=== PATIENT | male | born 1940 | race Caucasian/White ===

== ENCOUNTER 2018-03-23 03:10 | Inpatient (IN) | payer MEDICARE ==
[~2018-03-23] VITALS: Ht 180.3 cm; Wt 122.9 kg
--- NOTE | ~2018-03-23 | EC ---
PATIENT:KURT BRIGHT DATE OF SERVICE: 03/23/18 SEX: M MEDICAL RECORD: [id number] DATE OF : 40 LOCATION:D.MS [id number] AGE OF PATIENT: 78 ADMISSION DATE: 03/23/18 REFERRING PHYSICIAN: INTERPRETING PHYSICIAN: ANDRIA WELDON MD ECHOCARDIOGRAM REPORT ECHO CHARGES 4 ECHO COMPLETE Date: 03/24 CLINICAL DIAGNOSIS: CHF ECHOCARDIOGRAPHIC MEASUREMENTS (adult normal given) AC root (d.<3.7cm) 3.3 cm LV Septum d (<1.2 cm> 1.2 cm Valve Excursion 2.1 cm LV Septum (systole) 1.8 cm Left Atria (s.<4.0cm> 4.9 cm LVPW d(<1.2cm) 1.3 cm RV (d.<2.3cm) 3.1 cm LVPW (sytole) 2.2 cm LV diastole(<5.6CM) 7.3 cm MV E-F(>70mm/sec) cm LV systole 5.3 cm LVOT Diameter 2.0 cm MV exc.(>10mm) cm Est.ejection fraction (50-75%) % DOPPLER: LVIT cm/sec A 59.0 cm/sec E 160 cm/sec LA cm/sec RVSP 42.4 mmHg LVOT 82.0 cm/sec AOP1/2T m/s Asc. Ao 151 cm/sec RVOT 80.0 cm/sec RA cm/sec PA 112 cm/sec AV Gradient Peak 9.1 mmHg AV Mean 4.5 mmHg AV Area 1.7 cm MV Gradient Peak 9.9 mmHg MV Mean 2.6 mmHg MV Area cm COMMENTS: Subcontract Manager: 1 WARREN SOTOOE Personnel Clerk: 3 Dr. Townsend TAPE# PACS Pericardial Effusion N DATE OF SERVICE: Adequate 2D echo, color flow, spectral Doppler, and M-mode. Mild LVH. LV internal dimensions are mildly dilated. LV is globally hypokinetic with reduced EF, estimated EF 35%. The aortic valve is tricuspid. No evidence of stenosis by Doppler interrogation. Left atrium is dilated to 4.9 cm. Mitral valve is thickened. Xagt-iy-xkohoirq MR. Right-sided chambers normal. Mild TR. TRANSINT:[id number] Voice Confirmation ID: [id number] DOCUMENT ID: [id number] ECHOCARDIOGRAM REPORT [id number] KURT BRIGHT GREGORY A MD at 0816 CC: [id number] DICTATION DATE: 03/25/1858 RN DOCUMENT IMPROVEMENT: 03/25/18 1504 DIS IN 03/31/18 [place] [id number] [place] [id number]
--- NOTE | ~2018-03-23 | HP ---
PATIENT: KURT BRIGHT MEDICAL RECORD: [id number] ACCOUNT: [id number] LOCATION:D.MS Fox3 : 40 ADMISSION DATE: 03/23/18 HISTORY AND PHYSICAL EXAMINATION REASON FOR ADMISSION: Confusion. HISTORY OF PRESENT ILLNESS: The patient is a 78-year-old male with a history of chronic renal insufficiency, CAD, congestive heart failure. He has been followed most recently in the [facility] for left lower extremity cellulitis, which his said had been improving. She states that he has been getting weaker over the last month. The patient states he mainly sits in a recliner all day long. He apparently fell about 3 weeks ago. She is unsure if he hit his head. There was no reported loss of consciousness. He has been more feeble since that time and yesterday afternoon became much more confused for which she brought him to the Emergency Room. He denies headache, cough or fever. PAST MEDICAL HISTORY: Chronic venous insufficiency, morbid obesity, coronary artery disease, congestive heart failure. Recent echo showing a 45% ejection fraction per Dr. Miquel Hubbard, essential hypertension, type 2 diabetes mellitus, depression, hyperlipidemia, colon polyps, history of GI bleed, chronic renal insufficiency stage III with last creatinine in October of this year at 3 and a BUN of 52, obstructive sleep apnea, osteoarthritis, history of gouty arthritis, secondary hyperparathyroidism. PAST SURGICAL HISTORY: Appendectomy, tonsillectomy, pacemaker placement, coronary artery bypass grafting in 1998, right great toe amputated for infection. She has history of carotid endarterectomy on the right in 2012 and a carotid stent placed after that. SOCIAL HISTORY: He is . 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 He said he quit smoking over 50 years ago. ALLERGIES: AMIODARONE, PENICILLIN, ACTOS, HYDROCHLOROTHIAZIDE CAUSING GOUT, METOLAZONE, MORPHINE, PLAVIX, AND SULFA. FAMILY HISTORY: His father had melanoma. Mother had heart disease. Paternal grandmother had heart disease, diabetes, hypertension and stroke. CURRENT MEDICATIONS: Basaglar insulin 80 units at bedtime, guaifenesin 400 mg b.i.d., vitamin D 50,000 units p.o. weekly, metolazone 2.5 mg one-half tab daily, Bumex 2 mg tablets every other day, metoprolol succinate ER 100 mg tablets 1 by mouth daily, Uloric 40 mg a day, Lipitor 40 mg at bedtime, aspirin 81 mg a day, NovoLog sliding scale, lisinopril 5 mg a day, mag oxide 400 mg 2 tablets daily, and also levothyroxine 50 mcg p.o. daily. REVIEW OF SYSTEMS: GENERAL: He has been fatigued and had fair appetite. He denies fever. HEENT: No recent visual changes, sinus congestion, or sore throat. CARDIAC: Denies chest pain, has chronic peripheral edema. No recent palpitations. GENITOURINARY: Has nocturia. No dysuria. MUSCULOSKELETAL: Chronic lumbago without sciatica. INTEGUMENT: He has had chronic dry skin. He has slight redness in his left HISTORY AND PHYSICAL [id number] BRIGHT,KURT ROCANE lower leg for the last several months. ENDOCRINE: Denies polyuria, polydipsia, heat or cold intolerance. NEUROLOGIC: No history of stroke, TIA, or vascular headaches. INTEGUMENT: No rash currently. No pruritus. PSYCHIATRIC: Denies depressed mood. PHYSICAL EXAMINATION: VITAL SIGNS: Pulse is 54 and regular, respirations are 18, blood pressure 151/47 with an O2 sat of 94% on 2 liters. HEENT: Normocephalic. Eyes are clear. Pupils are pinpoint, reactive. NECK: Faint bruit in the right carotid. Left is unremarkable. HEART: Regular rate and rhythm, without MGR. LUNGS: Subacute breath sounds in the left mid to lower lobe. Right lung is clear. No crackles appreciated. He is not retracting or tachypneic. ABDOMEN: Morbidly obese, nontender. GENITOURINARY: Deferred. EXTREMITIES: He has 3+ pitting edema of both lower extremities. He has a right great toe amputation well healed. He has erythema on his left lower extremity foot to the mid calf that blanches and is warm to the touch. No obvious skin lesions are noted here. NEUROLOGICAL: Oriented to person, place, and time. Cranial nerves are grossly intact. No motor deficits appreciated, but gait was not tested. LABORATORY DATA: Shows a white count of 15,000 with left shift, H&H is 14.6 and 43.9, platelet count of 168,000. His chemistry shows a potassium of 2.8, CO2 of 33.3, BUN of 91, creatinine of 5.1, bilirubin is 1.44. Troponin is 0.098. Urinalysis is currently pending. INR is 1.21. Chest x-ray shows cardiomegaly and what appears to be a hazy density in the left lower lobe suggesting pneumonia. CT of the brain is currently pending. ASSESSMENT: 1. Community-acquired left lobar pneumonia. 2. Altered mental status. 3. Hypokalemia. 4. Wexuq-kx-awqvixp cellulitis of left lower extremity, peripheral vascular disease, diabetes mellitus, morbid obesity, history of coronary artery disease, carotid occlusive disease, chronic renal insufficiency stage IV, creatinine up from 3 now to 5, secondary hyperparathyroidism, left ventricular hypertrophy with ejection fraction of 45% based on echo from February of this year at [facility], mild pulmonic valve regurgitation, dilated right ventricle and right atrium, zvas-fu-nzpwkvrp mitral regurgitation, recent cellulitis of left foot and leg on hyperbaric treatment, history of congestive heart failure, history of gout, sick sinus syndrome with pacemaker, hypokalemia. PLAN: The patient will be admitted from the ER to the room when available, will cautiously hydrate, culture blood and urine, placed on IV antibiotics. Check CT of the head due to confusion and subacute fall. Renal consult has been obtained. TRANSINT:[id number] Voice Confirmation ID: [id number] DOCUMENT ID: [id number] HISTORY AND PHYSICAL [id number] KURT BRIGHT TIMOTHY MD at 0838 CC: [id number] DICTATION DATE: 03/23/18830 ELECTRONICS PROCESSING SUPERVISOR: 03/23/18 0936 ADM IN [facility] [address] [place] [address]
--- NOTE | ~2018-03-23 | CN ---
PATIENT NAME:KURT BRIGHT MEDICAL RECORD: [id number] : 40 LOCATION:D.MS Fox3 ADMIT DATE: 03/23/18 ACCOUNT: [id number] CONSULTING PHYSICIAN: ANDRIA WELDON MD REFERRING PHYSICIAN: ROHAN ANDRES MD DATE OF CONSULTATION: 03/24/2018 HISTORY OF PRESENT ILLNESS: A 78-year-old gentleman with a known cardiovascular history. He has a history of sick sinus syndrome, status post pacemaker placement, history of cardiomyopathy, mildly reduced EF, diabetes mellitus with a nonhealing left lower extremity cellulitis being seen at the wound clinic, who has been getting weaker over the past by his report 2-3 weeks, somewhat confused and postural instability, admitted with hypokalemia, volume overload, ixixq-il-stcbrgn renal insufficiency. We are asked to see him concerning his cardiovascular status. PAST MEDICAL HISTORY: 1. History of coronary artery disease. 2. Cardiomyopathy, EF 45%. 3. Hypertension. 4. Diabetes mellitus. 5. Hyperlipidemia. 6. Chronic renal insufficiency, baseline creatinine approximately 3. 7. Sick sinus syndrome, status post permanent pacemaker placement. 8. Cerebrovascular disease status post CVA. SOCIAL HISTORY: , retired truck driver helper, nonsmoker. ALLERGIES: INCLUDE PENICILLIN, ACTOS, HYDROCHLOROTHIAZIDE, METOLAZONE, MORPHINE, PLAVIX, SULFA. MEDICATIONS: Home medications include Lipitor 40 every day, metoprolol 100 every day, amiodarone 200 every day, lisinopril 10 every day, aspirin 81 every day, Bumex 2 mg p.o. every day, insulin per scale. REVIEW OF SYSTEMS: The patient reports easy bruising but reports no swollen glands. The patient reports no fever, no night sweats, no significant weight gain, no significant weight loss. No significant exercise tolerance. The patient reports no dry eyes, no irritation, no vision change. Patient reports no difficulty hearing and no ear pain. Patient reports no frequent nose bleeds or nose and sinus problems. Patient reports on arm pain on exertion. No shortness of breath while lying down. No history of heart murmur. Patient reports no cough, no wheezing or coughing up blood. Patient reports no abdominal pain, no vomiting. Normal appetite. No diarrhea and not vomiting blood. No nausea and no constipation. Patient reports no incontinence. No difficulty urinating. No hematuria. No increased frequency. Patient reports no muscle aches. No weakness, no arthralgias, no back pain. No swelling of the extremities. Patient reports no abnormal mole, no jaundice, no rashes. Reports no loss of consciousness. No weakness and no numbness. No seizures, dizziness, or headaches. The patient reports no depression, no sleep disturbance, feeling safe in a relationship and no alcohol abuse. Patient reports on fatigue. Reports no runny nose or sinus pressure. No itching, no hives, and no frequent sneezing. PHYSICAL EXAMINATION: CONSULT REPORT [id number] KURT BRIGHT GENERAL: Pleasant gentleman in no acute distress, apparently oriented today. VITAL SIGNS: Blood pressure 117/54, pulse 55 and regular. HEENT: Normocephalic, atraumatic. NECK: No bruits are noted. HEART: Regular, II/ systolic ejection murmur. LUNGS: Actually fairly good air excursion. ABDOMEN: Soft, nontender. EXTREMITIES: Pulses are decreased. Trace edema. IMPRESSION: Coronary artery disease, cardiomyopathy, chronic renal insufficiency. At this point in time, would add Aldactone to his cardiomyopathy medications that should help with potassium retention as well as inotropic support. Further recommendations based on clinical course. TRANSINT:[id number] Voice Confirmation ID: [id number] DOCUMENT ID: [id number] ANDRIA WELDON MD at 0816 CC: [id number] DICTATION DATE: 03/24/18 1058 SHEET METAL DUCT WORKER SUPERVISOR: 03/24/18 1209 DIS IN 03/31/18 [place] [id number] [place] [address]
[~2018-03-23 03:10] MED LIST: BAYER CHEWABLE81 MG PO; BUMEX2 MG PO; CORDARONE200 MG PO; LIPITOR40 MG PO; LISINOPRIL10 MG PO; MAG-OX 400 MG400 MG PO; METOLAZONE5 MG PO; NOVOLIN N100 U/ML SQ; SYNTHROID50 MCG PO; TOPROL XL100 MG PO; TOUJEO SOL300 UNIT/1 SC; ULORIC40 MG PO
[2018-03-23] MEDS ORDERED: BUMEX2 MG PO (03:22)
[2018-03-23] MEDS ORDERED: BASAGLAR K100 UNIT/1 (03:23)
[2018-03-23] MEDS ORDERED: ULORIC40 MG PO (03:23)
[2018-03-23 04:00] LABS: BASOPHILS 0.2 % (0-2); EOSINOPHILS 0.7 % (0-7); HEMATOCRIT 42.9 % (42.0-54.0); HEMOGLOBIN 14.6 g/dL (13.5-17.5); IMMATURE GRANULOCYTES 0.5 % (0-5); MCH 32.1 pg (26.0-34.0); MCV 94.3 fL (80.0-100.0); MEAN PLATELET VOLUME 12.6 fL (7.4-10.4); MONOCYTES 10.3 % (2-11); NEUTROPHILS 81.3 % (40-80); RBC 4.55 10x6/uL (4.20-6.10); RDW 14.7 % (11.5-14.5)
[2018-03-23 04:01] LABS: PLATELET COUNT 168 10x3/uL (130-400)
[2018-03-23 04:05] LABS: INR 1.21 (0.85-1.17); PROTIME 14.9 SECONDS (11.6-15.0)
[2018-03-23 04:07] LABS: D-DIMER-QUANTITATIVE 0.84 ug/mLFEU (0.20-0.54)
[2018-03-23 04:25] LABS: BILIRUBIN - TOTAL 1.44 mg/dL (0.2-1.3); CALCIUM 8.9 mg/dL (8.5-10.1); CARBON DIOXIDE 33.3 mmol/L (21.0-32.0); CREATININE - SERUM 5.1 mg/dL (0.6-1.3); PROTEIN - SERUM 7.6 g/dL (6.4-8.2)
[2018-03-23 04:28] LABS: ANION GAP 10.5 mmol/L (8-16); POTASSIUM - SERUM 2.8 mmol/L (3.5-5.1); TROPONIN-I 0.098 ng/mL (0.000-0.060)
[2018-03-23 04:30] VITALS: BP 151/47
[2018-03-23 05:30] VITALS: BP 136/95
[2018-03-23 06:30] VITALS: BP 102/52
[2018-03-23 08:43] VITALS: BP 134/48
[2018-03-23 12:32] VITALS: BP 141/42
[2018-03-23 19:54] VITALS: BP 131/51
[2018-03-23 22:45] LABS: APPEARANCE CLEAR (CLEAR); BILIRUBIN NEGATIVE (NEGATIVE); COLOR YELLOW (YELLOW); GLUCOSE NEGATIVE (NEGATIVE); KETONE NEGATIVE (NEGATIVE); NITRITE NEGATIVE (NEGATIVE); PROTEIN NEGATIVE (NEGATIVE); UROBILINOGEN NORMAL (NORMAL)
[2018-03-24 00:28] VITALS: BP 119/46
[2018-03-24 03:42] VITALS: BP 119/46; BMI 37.8
[2018-03-24 04:10] VITALS: BP 124/54
[2018-03-24 06:25] LABS: BASOPHILS 0.3 % (0-2); EOSINOPHILS 3.6 % (0-7); HEMATOCRIT 40.8 % (42.0-54.0); HEMOGLOBIN 13.6 g/dL (13.5-17.5); IMMATURE GRANULOCYTES 0.5 % (0-5); LYMPHOCYTES 11.7 % (15-50); MCH 31.9 pg (26.0-34.0); MCHC 33.3 g/dL (31.0-37.0); MCV 95.8 fL (80.0-100.0); MEAN PLATELET VOLUME 12.7 fL (7.4-10.4); MONOCYTES 11.7 % (2-11); NEUTROPHILS 72.2 % (40-80); PLATELET COUNT 154 10x3/uL (130-400); RBC 4.26 10x6/uL (4.20-6.10); RDW 14.9 % (11.5-14.5)
[2018-03-24 06:32] LABS: WBC 11.2 10x3/uL (4.8-10.8)
[2018-03-24 06:56] LABS: MAGNESIUM - SERUM 2.3 mg/dL (1.8-2.4); URIC ACID 14.6 mg/dL (2.6-7.2)
[2018-03-24 07:17] LABS: ALBUMIN 2.6 g/dL (3.4-5.0); ANION GAP 12.7 mmol/L (8-16); BILIRUBIN - TOTAL 1.19 mg/dL (0.2-1.3); CALCIUM 8.6 mg/dL (8.5-10.1); CARBON DIOXIDE 33.1 mmol/L (21.0-32.0); CREATININE - SERUM 4.4 mg/dL (0.6-1.3); MAGNESIUM - SERUM 2.4 mg/dL (1.8-2.4); PHOSPHOROUS 4.1 mg/dL (2.5-4.9); POTASSIUM - SERUM 2.8 mmol/L (3.5-5.1); PROTEIN - SERUM 6.7 g/dL (6.4-8.2); TROPONIN-I 0.21 ng/mL (0.000-0.060)
[2018-03-24 08:30] VITALS: BP 117/54
[2018-03-24 09:51] VITALS: Ht 180.3 cm; Wt 122.9 kg
[2018-03-24 12:13] LABS: ANION GAP 7.5 mmol/L (8-16); CALCIUM 8.7 mg/dL (8.5-10.1); CARBON DIOXIDE 35.6 mmol/L (21.0-32.0); CREATININE - SERUM 4.4 mg/dL (0.6-1.3); POTASSIUM - SERUM 3.1 mmol/L (3.5-5.1)
[2018-03-24 12:35] VITALS: BP 140/68
[2018-03-24 22:18] VITALS: BP 124/38
[2018-03-25 04:10] VITALS: BP 135/57
[2018-03-25 06:19] LABS: BASOPHILS 0.5 % (0-2); EOSINOPHILS 8.1 % (0-7); HEMATOCRIT 42.2 % (42.0-54.0); HEMOGLOBIN 13.8 g/dL (13.5-17.5); IMMATURE GRANULOCYTES 0.7 % (0-5); LYMPHOCYTES 11.7 % (15-50); MCH 31.4 pg (26.0-34.0); MCHC 32.7 g/dL (31.0-37.0); MCV 96.1 fL (80.0-100.0); MEAN PLATELET VOLUME 12.7 fL (7.4-10.4); MONOCYTES 12.5 % (2-11); NEUTROPHILS 66.5 % (40-80); PLATELET COUNT 160 10x3/uL (130-400); RBC 4.39 10x6/uL (4.20-6.10); RDW 14.9 % (11.5-14.5); WBC 10.8 10x3/uL (4.8-10.8)
[2018-03-25 06:37] LABS: ANION GAP 8.3 mmol/L (8-16); CALCIUM 8.3 mg/dL (8.5-10.1); CARBON DIOXIDE 33.1 mmol/L (21.0-32.0); CREATININE - SERUM 4.3 mg/dL (0.6-1.3); POTASSIUM - SERUM 3.4 mmol/L (3.5-5.1)
[2018-03-25 07:52] VITALS: BP 120/53
[2018-03-25 12:16] VITALS: BP 151/50
[2018-03-25 12:17] LABS: ANION GAP 7.7 mmol/L (8-16); CALCIUM 8.1 mg/dL (8.5-10.1); CARBON DIOXIDE 31.8 mmol/L (21.0-32.0); CREATININE - SERUM 4.1 mg/dL (0.6-1.3); POTASSIUM - SERUM 3.5 mmol/L (3.5-5.1)
[2018-03-25 15:39] VITALS: BP 126/47
[2018-03-25 21:48] VITALS: BP 150/48
[2018-03-26 00:56] VITALS: BP 154/54
[2018-03-26 07:13] LABS: ANION GAP 12.5 mmol/L (8-16); CALCIUM 8.7 mg/dL (8.5-10.1); CARBON DIOXIDE 29.9 mmol/L (21.0-32.0); CREATININE - SERUM 3.9 mg/dL (0.6-1.3); MAGNESIUM - SERUM 2.7 mg/dL (1.8-2.4); POTASSIUM - SERUM 3.4 mmol/L (3.5-5.1)
[2018-03-26 08:06] VITALS: BP 188/58
[2018-03-26 12:36] VITALS: BP 164/61
[2018-03-26 15:23] VITALS: BP 171/65
[2018-03-27] VITALS (7 sets, daily range): BP systolic 126–157; BP diastolic 40–62
[2018-03-27 06:25] LABS: ANION GAP 11.5 mmol/L (8-16); CALCIUM 8.9 mg/dL (8.5-10.1); CARBON DIOXIDE 28.5 mmol/L (21.0-32.0); CREATININE - SERUM 3.4 mg/dL (0.6-1.3); PHOSPHOROUS 3.7 mg/dL (2.5-4.9)
[2018-03-28 04:05] VITALS: BP 154/54
[2018-03-28 06:40] LABS: ANION GAP 12.2 mmol/L (8-16); CALCIUM 8.6 mg/dL (8.5-10.1); CARBON DIOXIDE 27.5 mmol/L (21.0-32.0); CREATININE - SERUM 3.1 mg/dL (0.6-1.3); PHOSPHOROUS 3.2 mg/dL (2.5-4.9); POTASSIUM - SERUM 3.7 mmol/L (3.5-5.1)
[2018-03-28 07:52] VITALS: BP 156/51
[2018-03-28 12:24] VITALS: BP 140/87
[2018-03-28 15:32] VITALS: BP 132/49
[2018-03-28 20:51] VITALS: BP 148/56
[2018-03-29 04:26] VITALS: BP 115/56
[2018-03-29 06:30] LABS: ANION GAP 8.9 mmol/L (8-16); CALCIUM 8.4 mg/dL (8.5-10.1); CARBON DIOXIDE 28.2 mmol/L (21.0-32.0); CREATININE - SERUM 3.3 mg/dL (0.6-1.3); POTASSIUM - SERUM 4.1 mmol/L (3.5-5.1)
[2018-03-29 11:09] VITALS: BP 150/54
[2018-03-29 14:31] LABS: APPEARANCE HAZY (CLEAR); BILIRUBIN NEGATIVE (NEGATIVE); COLOR YELLOW (YELLOW); GLUCOSE NEGATIVE (NEGATIVE); KETONE NEGATIVE (NEGATIVE); NITRITE NEGATIVE (NEGATIVE); PROTEIN NEGATIVE (NEGATIVE); UROBILINOGEN NORMAL (NORMAL)
[2018-03-29 20:26] VITALS: BP 137/39
[2018-03-30] VITALS (7 sets, daily range): BP systolic 114–136; BP diastolic 53–60
[2018-03-30 12:25] LABS: ANION GAP 11.8 mmol/L (8-16); CALCIUM 8.8 mg/dL (8.5-10.1); CARBON DIOXIDE 27.1 mmol/L (21.0-32.0); CREATININE - SERUM 3.6 mg/dL (0.6-1.3); POTASSIUM - SERUM 3.9 mmol/L (3.5-5.1)
[2018-03-31 03:43] VITALS: BP 137/56
[2018-03-31 06:23] LABS: ANION GAP 11.1 mmol/L (8-16); CALCIUM 8.6 mg/dL (8.5-10.1); CARBON DIOXIDE 28.8 mmol/L (21.0-32.0); CREATININE - SERUM 3.8 mg/dL (0.6-1.3); POTASSIUM - SERUM 3.9 mmol/L (3.5-5.1)
[2018-03-31 08:13] VITALS: BP 143/56
[2018-03-31] MEDS ORDERED: ALDACTONE25 MG PO (10:30)
[2018-03-31 12:33] VITALS: BP 114/45
== END 2018-03-31 15:43 | disposition home health service (06) | DRG 291 ==
LOC: D.ER 03:10 → D.MS 06:32 → D.EDHOLD 06:32 → D.MS 19:59
PROVIDERS: Family Medicine; Internal Medicine Nephrology
DX: I13.0 Hypertensive heart and chronic kidney disease with heart failure and stage 1 through stage 4 chronic kidney disease, or unspecified chronic kidney disease (principal); I50.23 Acute on chronic systolic (congestive) heart failure; J18.9 Pneumonia, unspecified organism; N17.9 Acute kidney failure, unspecified; J44.0 Chronic obstructive pulmonary disease with (acute) lower respiratory infection; J44.1 Chronic obstructive pulmonary disease with (acute) exacerbation; L03.116 Cellulitis of left lower limb; N18.4 Chronic kidney disease, stage 4 (severe); I42.9 Cardiomyopathy, unspecified; E11.22 Type 2 diabetes mellitus with diabetic chronic kidney disease; Z79.4 Long term (current) use of insulin; E66.01 Morbid (severe) obesity due to excess calories; Z68.37 Body mass index [BMI] 37.0-37.9, adult; G47.33 Obstructive sleep apnea (adult) (pediatric); E87.6 Hypokalemia; E78.5 Hyperlipidemia, unspecified; I73.9 Peripheral vascular disease, unspecified; E21.3 Hyperparathyroidism, unspecified; I08.1 Rheumatic disorders of both mitral and tricuspid valves; E11.42 Type 2 diabetes mellitus with diabetic polyneuropathy; I48.91 Unspecified atrial fibrillation; M19.90 Unspecified osteoarthritis, unspecified site; M10.9 Gout, unspecified

== ENCOUNTER 2018-04-05 11:35 | Emergency (ER) | payer MEDICARE ==
[~2018-04-05] VITALS: Ht 180.3 cm; Wt 126.4 kg
[~2018-04-05 11:35] MED LIST changes: +ALDACTONE25 MG PO; +BASAGLAR K100 UNIT/1
[2018-04-05 11:52] VITALS: Ht 180.3 cm; Wt 126.4 kg
[2018-04-05 13:20] VITALS: BP 119/67
== END 2018-04-05 13:21 | disposition home or self-care (01) ==
LOC: D.ER 11:35
DX: R04.0 Epistaxis (principal); E11.9 Type 2 diabetes mellitus without complications; Z95.0 Presence of cardiac pacemaker

== ENCOUNTER 2018-07-09 17:07 | Emergency (ER) | payer MEDICARE ==
[~2018-07-09] VITALS: Ht 180.3 cm; Wt 103.4 kg
[2018-07-09 17:11] VITALS: Ht 180.3 cm; Wt 103.4 kg
[2018-07-09] MEDS ORDERED: ANUSOL-HC25 MG RC (19:34)
[2018-07-09 20:00] VITALS: BP 117/66
== END 2018-07-09 20:01 | disposition home or self-care (01) ==
LOC: D.ER 17:07
DX: K64.9 Unspecified hemorrhoids (principal); E11.9 Type 2 diabetes mellitus without complications; N18.9 Chronic kidney disease, unspecified

== ENCOUNTER 2018-08-01 06:11 | Day surgery (SDC) | payer MEDICARE ==
[~2018-08-01] VITALS: Ht 180.3 cm; Wt 133.6 kg
--- NOTE | ~2018-08-01 | OP ---
PATIENT NAME: KURT BRIGHT MEDICAL RECORD: [id number] :40 LOCATION:TIAGO ADMISSION DATE: SURGEON: YONI RAM DO DATE OF OPERATION: 08/01/2018 PROCEDURE: EGD with hemostasis and biopsies. INDICATIONS FOR PROCEDURE: Dysphagia, left upper quadrant abdominal tenderness, occult blood in the stools, and melena. SCOPE: Olympus video gastroscope. MEDICATIONS: Propofol 350 mg IV per anesthesia. ESTIMATED BLOOD LOSS: Minimal. COMPLICATIONS: None. FINDINGS: Informed consent was given. The patient was made comfortable with the above medication. After reaching an adequate level of sedation by slow IV push, the patient was placed on his left side. The endoscope was advanced under direct visualization through the mouth to the second portion of the duodenum. The upper, middle, and lower thirds of the esophagus appeared normal. At the GE junction, there was some evidence of LA class A reflux-induced esophagitis. The endoscope was advanced beyond the GE junction into the stomach, where gastric food retention was noted. There was food located in the cardia and fundus of the stomach making evaluation of the actual cardiac mucosa and looking for hiatal hernia impossible. The food was too solid to remove through the endoscope. There was also food in the antrum and prepylorus, which made locating the pylorus and getting into the duodenum difficult. As much food as possible was removed from the stomach for visualization. The entire stomach seemed to have some atrophic-appearing mucosa. A single cold forceps biopsy was taken to submit for histopathology and to rule out the presence of H. pylori. In the antrum and prepyloric region, there was an ulcerated nodule visualized. There was some oozing of blood around the exudative ulcerated surface. A couple cold forceps biopsies were taken of the nodule to submit for pathology. For hemostasis, 2 separate injections of diluted 1:10,000 epinephrine was injected for 2 mL total in the base of the ulcerated nodule. Gold probe cauterization was performed over the surface and a single endoclip was placed over the nodule with successful hemostasis. The endoscope was advanced beyond the pylorus into the duodenum. The entire exam and duodenum to the second portion appeared normal. The endoscope was then withdrawn from the patient. The patient tolerated the procedure well and there were no complications. IMPRESSION: 1. LA class A reflux-induced esophagitis. 2. Moderate amount of food retention within the stomach. 3. Atrophic-appearing gastritis with biopsies pending. 4. A single ulcerated nodule, which measured approximately 1 cm in size located in the prepyloric region. This nodule was oozing blood. Biopsies were taken and hemostasis performed using epinephrine injection, gold probe cautery, and endoclipping. PLAN AND RECOMMENDATIONS: 1. Discharge home when recovery parameters are met. OPERATIVE REPORT [id number] KURT BRIGHT 2. Follow up biopsy specimen results. 3. GERD diet, reflux precautions, and gastroparesis diet consisting of multiple, small, frequent meals that are low in fat and fibrous substances. 4. Notify the GI clinic if any further bleeding occurs. 5. A prescription for pantoprazole 40 mg capsules to be taken once daily for 60 days will be provided. TRANSINT:[id number] Voice Confirmation ID: [id number] DOCUMENT ID: [id number] YONI RAM DO at 1422 CC: [id number] DICTATION DATE: 08/01/18 09 STRADDLE CARRIER OPERATOR: 08/01/18 1108 [facility] 08/01/18 [place] [id number] [place] [address]
[~2018-08-01 06:11] MED LIST changes: +ANUSOL-HC25 MG RC
[2018-08-01 07:00] LABS: BASOPHILS 0.6 % (0-2); EOSINOPHILS 4.6 % (0-7); HEMATOCRIT 34.3 % (42.0-54.0); HEMOGLOBIN 10.7 g/dL (13.5-17.5); IMMATURE GRANULOCYTES 0.6 % (0-5); LYMPHOCYTES 17.6 % (15-50); MCH 30.8 pg (26.0-34.0); MCHC 31.2 g/dL (31.0-37.0); MCV 98.8 fL (80.0-100.0); MEAN PLATELET VOLUME 11.4 fL (7.4-10.4); MONOCYTES 10.5 % (2-11); NEUTROPHILS 66.1 % (40-80); PLATELET COUNT 190 10x3/uL (130-400); RBC 3.47 10x6/uL (4.20-6.10); RDW 14.4 % (11.5-14.5); WBC 8.9 10x3/uL (4.8-10.8)
[2018-08-01 07:03] LABS: ANION GAP 13.4 mmol/L (8-16); CALCIUM 8.4 mg/dL (8.5-10.1); CARBON DIOXIDE 26.4 mmol/L (21.0-32.0); CREATININE - SERUM 3.5 mg/dL (0.6-1.3); POTASSIUM - SERUM 3.8 mmol/L (3.5-5.1)
[2018-08-01] MEDS ORDERED: NEO-POLY-DEXAM3.5 GM EACH EYE (07:09)
[2018-08-01] MEDS ORDERED: LEVOTHYROXINE50 MCG PO (07:09)
[2018-08-01 07:16] VITALS: BP 153/68; Ht 180.3 cm; Wt 133.6 kg
== END 2018-08-01 09:45 | disposition home or self-care (01) ==
LOC: D.OPS 06:11
PROVIDERS: Anesthesiology
DX: K21.0 Gastro-esophageal reflux disease with esophagitis (principal); K29.70 Gastritis, unspecified, without bleeding; K25.9 Gastric ulcer, unspecified as acute or chronic, without hemorrhage or perforation; Z01.812 Encounter for preprocedural laboratory examination

== ENCOUNTER 2018-08-06 07:14 | Day surgery (SDC) | payer MEDICARE ==
[~2018-08-06] VITALS: Ht 180.3 cm; Wt 137.3 kg
--- NOTE | ~2018-08-06 | OP ---
PATIENT NAME: KURT BRIGHT MEDICAL RECORD: [id number] :40 LOCATION:D.OPS ADMISSION DATE: SURGEON: YONI RAM DO DATE OF OPERATION: 08/06/2018 PROCEDURE: Colonoscopy with biopsies, polypectomy, injection, and endoclipping. INDICATIONS FOR PROCEDURE: Occult blood in stools as well as left upper quadrant abdominal tenderness. SCOPE: Olympus video pediatric colonoscope. MEDICATIONS: Propofol 340 mg IV per anesthesia. WITHDRAWAL TIME: 37 minutes. ESTIMATED BLOOD LOSS: Minimal. COMPLICATIONS: None. FINDINGS: Informed consent was given. The patient was made comfortable with the above medication. After reaching an adequate level of sedation by slow IV push, the patient was placed on his left side. A digital rectal examination was performed and revealed hemorrhoids. The endoscope was advanced under direct visualization through the rectum to the cecum, confirmed by the presence of the appendiceal orifice and the ileocecal valve. The endoscope was slowly withdrawn and mucosa was carefully examined. Prep quality was fair in the majority of the colon, but poor in other locations, making complete visualization of the mucosa impossible. Approximately 95% or more of the mucosa was visualized well. There were multiple polyps visualized on today's examination. Two were located in the cecum. These were benign appearing, sessile, and measured in range from 3-5 mm in diameter. They were both removed using hot forceps. In the ascending colon, there was a larger mixed polyp which was sessile in one region and flat in another. The appearances were questionable as there was a broad area that appeared to be invading the wall along a fold distal to the ileocecal valve. Multiple cold forceps biopsies were taken to submit for histopathology. Tattoo was placed both proximally and distally to this polyp for further interventions, which may include endoscopic removal or surgical removal based on pathology. The endoscope was withdrawn further and 2 polyps were located in the transverse colon. They were both benign appearing and sessile. They ranged in size from 3-5 mm in diameter. One was removed using a hot snare and the other was removed using a hot forceps. The polyp that was removed using a hot forceps was bleeding after removal of the polyp. Multiple attempts were made at cautery to stop the bleeding. Due to continued bleeding, 2 endoclips were used to stop the bleeding successfully. In the sigmoid colon, there was another larger sessile polyp which measured approximately 1 cm in diameter. It was removed using a hot snare in one piece and completely retrieved. Also, in the distal descending colon and sigmoid colon, there was moderate diverticulosis of mixed large- and small-mouth diverticula. There was no evidence of diverticulitis. Retroflexion was performed in the rectum with visualization of grade III internal hemorrhoids. There was no active bleeding, but the mucosa was very friable and is the likely source of the patient's intermittent blood in his stool. The endoscope was withdrawn from the patient. The patient tolerated the procedure well and there were no complications. OPERATIVE REPORT [id number] KURT BRIGHT IMPRESSION: 1. Multiple polyps as described above, removed using combination of hot forceps and hot snare. One polyp in particular located in the ascending colon was not removed. This was a larger polyp measuring approximately 1.5 cm in size but had a mixed appearance of sessile and flat features with some concern that there could be some high-grade dysplasia within the polyp itself. Biopsies were taken to submit for histology and tattoo was placed around the site. 3. Moderate diverticulosis of distal descending and sigmoid colon. 4. Grade III hemorrhoids, which are not actively bleeding. PLAN AND RECOMMENDATIONS: 1. Discharge home when recovery parameters are met. 2. Followup biopsy specimen results. 3. High-fiber diet. 4. Continue current medications. 5. A referral will be made to Dr. Palencia for further intervention of the ascending colon polyp, which may include surgical resection versus endoscopic resection with biopsies pending. I will also let Dr. Palencia evaluate the patient's hemorrhoids for consideration of hemorrhoidectomy due to continued intermittent bleeding. 6. Consider CT scan of abdomen and pelvis regarding the patient's left-sided abdominal pain. This could be related to diverticula. We will work on a bowel regimen, and if this does not improve symptoms, a CT scan will be ordered. TRANSINT:[id number] Voice Confirmation ID: [id number] DOCUMENT ID: [id number] YONI RAM DO at 1426 CC: [id number] DICTATION DATE: 08/06/18 1018 LAUNDRY WORKER: 08/06/18 1047 [facility] 08/06/18 [place] [id number] [place] [address]
--- NOTE | ~2018-08-06 | OP ---
PATIENT NAME: KURT BRIGHT MEDICAL RECORD: [id number] :40 LOCATION:D.OPS ADMISSION DATE: SURGEON: YONI RAM DO DATE OF OPERATION: 08/06/2018 PROCEDURE: Colonoscopy with biopsies, polypectomy, injection, and endoclipping. INDICATIONS FOR PROCEDURE: Occult blood and stools as well as left upper quadrant abdominal tenderness. SCOPE: Olympus video pediatric colonoscope. MEDICATIONS: Propofol 340 mg IV per anesthesia. WITHDRAWAL TIME: 37 minutes. ESTIMATED BLOOD LOSS: Minimal. COMPLICATIONS: None. FINDINGS AND DESCRIPTION OF PROCEDURE: Informed consent was given. The patient was made comfortable with the above medication. After reaching an adequate level of sedation by slow IV push, the patient was placed on his left side. A digital rectal examination was performed and revealed hemorrhoids. The endoscope was advanced under direct visualization through the rectum to the cecum, confirmed by the presence of the appendiceal orifice and ileocecal valve. The endoscope was slowly withdrawn and mucosa was carefully examined. Prep quality was fair in the majority of the colon, but poor in other locations making complete visualization of the mucosa impossible. Approximately, 95% or more of the mucosa was visualized as well. There were multiple polyps visualized on today's examination. Two were located in the cecum. These were benign-appearing and sessile, and measured in range from 3-5 mm in diameter. They were both removed using hot forceps. In the ascending colon, there was a larger mixed polyp, which was sessile in one region and flat in another. The appearances were questionable as there was a broad area that appeared to be invading the wall along a fold distal to the ileocecal valve. Multiple cold forceps biopsies were taken to submit for histopathology. Tattoo was placed both proximally and distally to this polyp for further interventions, which may include endoscopic removal or surgical removal based on pathology. The endoscope was withdrawn further and 2 polyps were located in the transverse colon. They were both benign-appearing and sessile. They ranged in size from 3-5 mm in diameter. One was removed using a hot snare and the other was removed using a hot forcep. The polyp that was removed using a hot forcep was bleeding after removal of the polyp. Multiple attempts were made at cautery to stop the bleeding. Due to continued bleeding, two endoclips were used to stop the bleeding successfully. In the sigmoid colon, there was another larger sessile polyp, which measured approximately 1 cm in diameter. It was removed using a hot snare in 1 piece and completely retrieved. Also, in the distal descending colon and sigmoid colon, there was moderate diverticulosis of mixed large and small mouth diverticula. There was no evidence of diverticulitis. Retroflexion was performed in the rectum with visualization of grade III internal hemorrhoids. There was no active bleeding, but the mucosa was very friable and is the likely source of the patient's intermittent blood in his stool. The endoscope was withdrawn from the patient. The patient tolerated the procedure well and there were no complications. OPERATIVE REPORT [id number] KURT BRIGHT IMPRESSION: 1. Multiple polyps as described above, removed using combination of hot forceps and hot snare. One polyp in particular located in the ascending colon was not removed. This was a larger polyp measuring approximately 1.5 cm in size but had a mixed appearance of sessile and flat features with some concern that there could be some high-grade dysplasia within the polyp itself. Biopsies were taken to submit for histology and tattoo was placed around the site. 2. Moderate diverticulosis of the distal descending and sigmoid colon. 3. Grade III hemorrhoids, which are not actively bleeding. 4. 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 No biopsies were taken of this lipoma. PLAN AND RECOMMENDATIONS: 1. Discharge home when recovery parameters are met. 2. Follow up biopsy specimen results. 3. High-fiber diet. 4. Continue current medications. 5. A referral will be made to Dr. Palencia for further intervention of the ascending colon polyp, which may include surgical resection versus endoscopic resection with biopsies pending. I will also let Dr. Palencia evaluate the patient's hemorrhoids for consideration of a hemorrhoidectomy due to continued intermittent bleeding. 6. Consider CT scan of the abdomen and pelvis regarding the patient's left-sided abdominal pain. This could be related to diverticula. We will work on a bowel regimen and if this does not improve symptoms, a CT scan will be ordered. TRANSINT:[id number] Voice Confirmation ID: [id number] DOCUMENT ID: [id number] YONI RAM DO at 1426 CC: [id number] DICTATION DATE: 08/06/18 1025 LOW VOLTAGE ELECTRICIAN: 08/06/[address] [facility] 08/06/18 [id number] [place] [address]
[~2018-08-06 07:14] MED LIST changes: +LEVOTHYROXINE50 MCG PO; +NEO-POLY-DEXAM3.5 GM EACH EYE
[2018-08-06 07:31] LABS: BASOPHILS 0.3 % (0-2); EOSINOPHILS 2.3 % (0-7); HEMATOCRIT 34.1 % (42.0-54.0); HEMOGLOBIN 10.8 g/dL (13.5-17.5); IMMATURE GRANULOCYTES 0.3 % (0-5); LYMPHOCYTES 17.8 % (15-50); MCH 30.7 pg (26.0-34.0); MCHC 31.7 g/dL (31.0-37.0); MCV 96.9 fL (80.0-100.0); MEAN PLATELET VOLUME 11.3 fL (7.4-10.4); MONOCYTES 12.1 % (2-11); NEUTROPHILS 67.2 % (40-80); PLATELET COUNT 191 10x3/uL (130-400); RBC 3.52 10x6/uL (4.20-6.10); RDW 14.3 % (11.5-14.5); WBC 8.7 10x3/uL (4.8-10.8)
[2018-08-06 07:39] LABS: ANION GAP 14.1 mmol/L (8-16); CALCIUM 8.3 mg/dL (8.5-10.1); CARBON DIOXIDE 26.3 mmol/L (21.0-32.0); POTASSIUM - SERUM 3.4 mmol/L (3.5-5.1)
[2018-08-06] MEDS ORDERED: PROTONIX40 MG PO (08:12)
[2018-08-06 08:22] VITALS: BP 151/71; Ht 180.3 cm; Wt 137.3 kg
== END 2018-08-06 11:12 | disposition home or self-care (01) ==
LOC: D.OPS 07:14
PROVIDERS: Anesthesiology
DX: K63.5 Polyp of colon (principal); E11.9 Type 2 diabetes mellitus without complications; Z87.891 Personal history of nicotine dependence; Z95.0 Presence of cardiac pacemaker; K57.31 Diverticulosis of large intestine without perforation or abscess with bleeding

== ENCOUNTER 2018-08-11 13:49 | Emergency (ER) | payer MEDICARE ==
[~2018-08-11] VITALS: Ht 180.3 cm; Wt 140.5 kg
[~2018-08-11 13:49] MED LIST changes: +PROTONIX40 MG PO
[2018-08-11 14:01] VITALS: Ht 180.3 cm; Wt 140.5 kg
[2018-08-11 14:34] LABS: BASOPHILS 0.5 % (0-2); EOSINOPHILS 4.5 % (0-7); HEMATOCRIT 33.7 % (42.0-54.0); HEMOGLOBIN 10.5 g/dL (13.5-17.5); IMMATURE GRANULOCYTES 0.6 % (0-5); MCH 30.3 pg (26.0-34.0); MCHC 31.2 g/dL (31.0-37.0); MCV 97.1 fL (80.0-100.0); MEAN PLATELET VOLUME 12.2 fL (7.4-10.4); MONOCYTES 12.2 % (2-11); NEUTROPHILS 66.2 % (40-80); PLATELET COUNT 170 10x3/uL (130-400); RBC 3.47 10x6/uL (4.20-6.10); RDW 14.5 % (11.5-14.5); WBC 9.3 10x3/uL (4.8-10.8)
[2018-08-11 15:07] LABS: ALBUMIN 2.7 g/dL (3.4-5.0); ANION GAP 13.5 mmol/L (8-16); BILIRUBIN - TOTAL 0.87 mg/dL (0.2-1.3); CALCIUM 8.1 mg/dL (8.5-10.1); CARBON DIOXIDE 26.7 mmol/L (21.0-32.0); CREATININE - SERUM 3.1 mg/dL (0.6-1.3); POTASSIUM - SERUM 3.2 mmol/L (3.5-5.1); PROTEIN - SERUM 6.9 g/dL (6.4-8.2)
[2018-08-11] MEDS ORDERED: K-DUR20 MEQ PO (15:40)
[2018-08-11] MEDS ORDERED: METOLAZONE5 MG PO (15:56)
[2018-08-11 17:42] VITALS: BP 135/61
== END 2018-08-11 16:40 | disposition home or self-care (01) ==
LOC: D.ER 13:49
PROVIDERS: Emergency Medicine
DX: R60.0 Localized edema (principal); D64.9 Anemia, unspecified; E87.6 Hypokalemia; N28.9 Disorder of kidney and ureter, unspecified

== ENCOUNTER 2018-08-14 10:05 | Inpatient (IN) | payer MEDICARE ==
[~2018-08-14] VITALS: Ht 180.3 cm; Wt 137.9 kg
[~2018-08-14 10:05] MED LIST changes: +K-DUR20 MEQ PO
[2018-08-14] MEDS ORDERED: TOPROL XL100 MG PO (12:15)
[2018-08-14 12:49] VITALS: BP 159/49
[2018-08-14 13:39] LABS: BASOPHILS 0.4 % (0-2); EOSINOPHILS 3.1 % (0-7); HEMATOCRIT 36.2 % (42.0-54.0); HEMOGLOBIN 11.3 g/dL (13.5-17.5); IMMATURE GRANULOCYTES 0.5 % (0-5); LYMPHOCYTES 16.4 % (15-50); MCH 30.2 pg (26.0-34.0); MCHC 31.2 g/dL (31.0-37.0); MCV 96.8 fL (80.0-100.0); MEAN PLATELET VOLUME 12.4 fL (7.4-10.4); MONOCYTES 16.2 % (2-11); NEUTROPHILS 63.4 % (40-80); RBC 3.74 10x6/uL (4.20-6.10); RDW 14.6 % (11.5-14.5); WBC 10.5 10x3/uL (4.8-10.8)
[2018-08-14 13:51] LABS: CALCIUM 8.8 mg/dL (8.5-10.1); CARBON DIOXIDE 29.4 mmol/L (21.0-32.0); CREATININE - SERUM 3.4 mg/dL (0.6-1.3); POTASSIUM - SERUM 3.4 mmol/L (3.5-5.1)
[2018-08-14 13:52] LABS: PLATELET COUNT 205 10x3/uL (130-400)
[2018-08-14 14:27] VITALS: BP 154/49; BMI 42.5
[2018-08-14 16:44] VITALS: BP 139/51
[2018-08-14 20:00] VITALS: BP 157/30
[2018-08-15] VITALS: BP 121/62
[2018-08-15 04:00] VITALS: BP 131/55
[2018-08-15 07:43] LABS: BASOPHILS 0.6 % (0-2); EOSINOPHILS 2.1 % (0-7); HEMATOCRIT 32.6 % (42.0-54.0); HEMOGLOBIN 10.2 g/dL (13.5-17.5); IMMATURE GRANULOCYTES 0.3 % (0-5); LYMPHOCYTES 15.3 % (15-50); MCHC 31.3 g/dL (31.0-37.0); MCV 95.9 fL (80.0-100.0); MEAN PLATELET VOLUME 12.6 fL (7.4-10.4); MONOCYTES 14.6 % (2-11); NEUTROPHILS 67.1 % (40-80); PLATELET COUNT 180 10x3/uL (130-400); RDW 14.3 % (11.5-14.5); WBC 10.4 10x3/uL (4.8-10.8)
[2018-08-15 08:03] LABS: ALBUMIN 2.7 g/dL (3.4-5.0); ANION GAP 10.5 mmol/L (8-16); BILIRUBIN - TOTAL 1.6 mg/dL (0.2-1.3); CALCIUM 8.5 mg/dL (8.5-10.1); CREATININE - SERUM 3.4 mg/dL (0.6-1.3); POTASSIUM - SERUM 3.5 mmol/L (3.5-5.1); PROTEIN - SERUM 6.5 g/dL (6.4-8.2)
[2018-08-15 08:04] VITALS: BP 146/63
[2018-08-15 10:02] VITALS: Ht 180.3 cm; Wt 137.9 kg
[2018-08-15 11:32] VITALS: BP 152/88
[2018-08-15 17:37] VITALS: BP 151/63
[2018-08-15 19:00] VITALS: BP 133/68
--- NOTE | 2018-08-15 21:34 | MORECARE ---
CASE MANAGEMENT DISCHARGE SUMMARY PATIENT: KURT BRIGHT UNIT: [id number] ADM DATE: 08/14/18 AGE: 78 : 40 SEX: M ROOM/BED: D.1210 AUTHOR: ROLO PRESTON PHYSICIAN: REFERRING PHYSICIAN: ROHAN ANDRES MD DATE OF SERVICE: 08/15/18 Discharge Plan Patient Name: KURT BRIGHT Facility: [facility]:[place] : 1940 Planned Disposition: Home Anticipated Discharge Date: Discharge Date: Expected LOS: Initial Reviewer: [email or web address] Initial Review Date: 08/14/2018 Generated: 08/15/18 10:34 pm Patient Name: KURT BRIGHT Page [phone] at 2134 All edits/amendments must be made on the electronic document DICTATION DATE: 08/15/182133 MOLD CAPPER HELPER: NEEL 08/15/182133 RPT#: [id number] DC DATE: STATUS: ADM IN [facility] [address] [place] [address] END OF REPORT
--- NOTE | 2018-08-15 21:47 | MORECARE ---
CASE MANAGEMENT DISCHARGE SUMMARY PATIENT: KURT BRIGHT UNIT: [id number] ADM DATE: 08/14/18 AGE: 78 : 40 SEX: M ROOM/BED: D.1210 AUTHOR: ROLO PRESTON PHYSICIAN: REFERRING PHYSICIAN: ROHAN ANDRES MD DATE OF SERVICE: 08/15/18 Discharge Plan Patient Name: KURT BRIGHT Facility: [facility]:[place] : 1940 Planned Disposition: Home Anticipated Discharge Date: Discharge Date: Expected LOS: Initial Reviewer: [email or web address] Initial Review Date: 08/14/2018 Generated: 08/15/18 10:47 pm Comments DCP- Discharge Planning Updated by [email or web address]: Zeinab Brown on 08/15/18 8:[address] Patient Name: KURT BRIGHT Admission Status: Urgent Accout number: [id number] Admission Date: 08-14-2018 : 1940 Admission Diagnosis: Attending: ROHAN ANDRES Current LOS: 1 Anticipated DC Date: Planned Disposition: Home Primary Insurance: MEDICARE A & B Discharge Planning Comments: CM met with patient and spouse at bedside after obtaining verbal consent. Patient states he plans on returning home after discharge with his . Patient states he will have family transport him home via private vehicle. Patient has [facility] services. Patient is requesting a hospital bed and a big BSC. CM will continue to follow and assist as needed for discharge planning / needs. Tip Banding Machine Operator: Zeinab Brown Last DP export: 08/15/18 8:34 Patient Name: KURT BRIGHT Page [phone] at 2147 All edits/amendments must be made on the electronic document DICTATION DATE: 08/15/182146 SUPERVISOR BURLING AND JOINING: NEEL 08/15/182146 RPT#: [id number] DC DATE: STATUS: ADM IN [facility] [address] [place] [address] END OF REPORT
[2018-08-16 05:06] VITALS: BP 117/49
[2018-08-16 06:59] LABS: BASOPHILS 0.3 % (0-2); EOSINOPHILS 3.6 % (0-7); HEMATOCRIT 32.8 % (42.0-54.0); HEMOGLOBIN 10.1 g/dL (13.5-17.5); IMMATURE GRANULOCYTES 0.6 % (0-5); LYMPHOCYTES 18.6 % (15-50); MCH 29.7 pg (26.0-34.0); MCHC 30.8 g/dL (31.0-37.0); MCV 96.5 fL (80.0-100.0); MEAN PLATELET VOLUME 12.4 fL (7.4-10.4); NEUTROPHILS 61.9 % (40-80); PLATELET COUNT 181 10x3/uL (130-400); RDW 14.6 % (11.5-14.5); WBC 10.1 10x3/uL (4.8-10.8)
[2018-08-16 07:15] LABS: ALBUMIN 2.5 g/dL (3.4-5.0); ANION GAP 9.7 mmol/L (8-16); BILIRUBIN - TOTAL 1.23 mg/dL (0.2-1.3); CALCIUM 8.3 mg/dL (8.5-10.1); CARBON DIOXIDE 32.9 mmol/L (21.0-32.0); CREATININE - SERUM 3.9 mg/dL (0.6-1.3); POTASSIUM - SERUM 3.6 mmol/L (3.5-5.1); PROTEIN - SERUM 6.2 g/dL (6.4-8.2)
[2018-08-16 07:34] VITALS: BP 120/60
[2018-08-16 11:18] VITALS: BP 122/56
[2018-08-16 15:57] VITALS: BP 122/47
[2018-08-16 20:00] VITALS: BP 135/55
[2018-08-17] VITALS: BP 121/60
[2018-08-17 04:00] VITALS: BP 112/43
[2018-08-17 06:42] LABS: BASOPHILS 0.3 % (0-2); EOSINOPHILS 1.8 % (0-7); HEMATOCRIT 34.1 % (42.0-54.0); HEMOGLOBIN 10.4 g/dL (13.5-17.5); IMMATURE GRANULOCYTES 0.4 % (0-5); LYMPHOCYTES 9.6 % (15-50); MCH 29.4 pg (26.0-34.0); MCHC 30.5 g/dL (31.0-37.0); MCV 96.3 fL (80.0-100.0); MEAN PLATELET VOLUME 12.4 fL (7.4-10.4); MONOCYTES 12.4 % (2-11); NEUTROPHILS 75.5 % (40-80); PLATELET COUNT 194 10x3/uL (130-400); RBC 3.54 10x6/uL (4.20-6.10); RDW 14.6 % (11.5-14.5); WBC 11.2 10x3/uL (4.8-10.8)
[2018-08-17 06:56] LABS: ALBUMIN 2.4 g/dL (3.4-5.0); ANION GAP 11.8 mmol/L (8-16); BILIRUBIN - TOTAL 1.28 mg/dL (0.2-1.3); CALCIUM 8.3 mg/dL (8.5-10.1); CREATININE - SERUM 4.1 mg/dL (0.6-1.3); POTASSIUM - SERUM 3.8 mmol/L (3.5-5.1); PROTEIN - SERUM 6.4 g/dL (6.4-8.2)
[2018-08-17 07:34] VITALS: BP 121/56
[2018-08-17 11:25] VITALS: BP 147/55
--- NOTE | 2018-08-17 14:37 | MORECARE ---
CASE MANAGEMENT DISCHARGE SUMMARY PATIENT: KURT BRIGHT UNIT: [id number] ADM DATE: 08/14/18 AGE: 78 : 40 SEX: M ROOM/BED: D.1210 AUTHOR: ROLO PRESTON PHYSICIAN: REFERRING PHYSICIAN: ROHAN ANDRES MD DATE OF SERVICE: 08/17/18 Discharge Plan Patient Name: KURT BRIGHT Facility: [facility]:[place] : 1940 Planned Disposition: Home Anticipated Discharge Date: Discharge Date: Expected LOS: Initial Reviewer: [email or web address] Initial Review Date: 08/14/2018 Generated: 08/17/18 3:37 pm Comments DCP- Discharge Planning Updated by [email or web address]: Zeinab Brown on 08/15/18 8:[address] Patient Name: KURT BRIGHT Admission Status: Urgent Accout number: [id number] Admission Date: 08-14-2018 : 1940 Admission Diagnosis: Attending: ROHAN ANDRES Current LOS: 1 Anticipated DC Date: Planned Disposition: Home Primary Insurance: MEDICARE A & B Discharge Planning Comments: CM met with patient and spouse at bedside after obtaining verbal consent. Patient states he plans on returning home after discharge with his . Patient states he will have family transport him home via private vehicle. Patient has [facility] services. Patient is requesting a hospital bed and a big BSC. CM will continue to follow and assist as needed for discharge planning / needs. Roundhouse Supervisor: Zeinab Brown External Providers External Provider: [facility] Next Contact Date: Service Request Date: Service Type: Resolution: Reviewer: Comments: Last DP export: 08/15/18 8:47 Patient Name: KURT BRIGHT Page [phone] at 1437 All edits/amendments must be made on the electronic document DICTATION DATE: 08/17/18 1437 CUSTOMS COMPLIANCE DIRECTOR: NEEL 08/17/18 1437 RPT#: [id number] DC DATE: STATUS: ADM IN [id number] [place] [address] END OF REPORT
--- NOTE | 2018-08-17 19:48 | MORECARE ---
CASE MANAGEMENT DISCHARGE SUMMARY PATIENT: KURT BRIGHT UNIT: [id number] ADM DATE: 08/14/18 AGE: 78 : 40 SEX: M ROOM/BED: D.1210 AUTHOR: KARYDOC PHYSICIAN: REFERRING PHYSICIAN: ROHAN ANDRES MD DATE OF SERVICE: 08/17/18 Discharge Plan Patient Name: KURT BRIGHT Facility: [facility]:[place] : 1940 Planned Disposition: Home Anticipated Discharge Date: Discharge Date: 08/17/2018 Expected LOS: Initial Reviewer: [email or web address] Initial Review Date: 08/14/2018 Generated: 08/17/18 8:48 pm Comments DCP- Discharge Planning Updated by [email or web address]: Zeinab Brown on 08/17/18 6:[address] LATE ENTRY 08/17/18 @ 1520 IMM EXPLAINED AND SERVED @ 1520. CM CALL [facility] AND FAXED RECORDS THAT PATIENT IS BEING DISCHARGED BACK INTO THEIR CARE. PATIENT WAS REQUESTING HOSPITAL BED SHE STATED THAT NURSE COULD ASSIST WITH THIS. CM WILL CONTINUE TO FOLLOW AND ASSIST WITH DISCHRAGE PLANNING DCP- Discharge Planning Updated by [email or web address]: Zeinab Brown on 08/15/18 8:[address] Patient Name: KURT BRIGHT Admission Status: Urgent Accout number: [id number] Admission Date: 08-14-2018 : 1940 Admission Diagnosis: Attending: ROHAN ANDRES Current LOS: 1 Anticipated DC Date: Planned Disposition: Home Primary Insurance: MEDICARE A & B Discharge Planning Comments: CM met with patient and spouse at bedside after obtaining verbal consent. Patient states he plans on returning home after discharge with his . Patient states he will have family transport him home via private vehicle. Patient has [facility] services. Patient is requesting a hospital bed and a big C. CM will continue to follow and assist as needed for discharge planning / needs. Web Merchant: Zeinab Brown Coverage Notice Reviewer: [email or web address] - Zeinab Brown Notice Issued Date-Time: 08/17/2018 15:20 Notice Type: IM Discharge Notice Notice Delivered To: Patient Relationship to Patient: Self Oracle Ebs Architect Name: Delivery Method: HAND - Hand Delivered Jessica Days: Prior Verbal Notification: Recipient Understood Notice: Yes Recipient Signature: Yes Med Rec Note Co-signed by Attending: Coverage Notice Comment: Last DP export: 08/17/18 1:37 Patient Name: KURT BRIGHT Page [phone] at 1948 All edits/amendments must be made on the electronic document DICTATION DATE: 08/17/181947 SPACE SYSTEMS OPERATIONS SUPERINTENDENT: NEEL 08/17/181947 RPT#: [id number] DC DATE:08/17/18 STATUS: DIS IN [facility] [address] [place] [address] END OF REPORT
== END 2018-08-17 16:07 | disposition home health service (06) | DRG 292 ==
LOC: D.SDCHOLD 10:05 → D.M3 10:05
PROVIDERS: ADMIT Family Medicine
DX: I13.0 Hypertensive heart and chronic kidney disease with heart failure and stage 1 through stage 4 chronic kidney disease, or unspecified chronic kidney disease (principal); N18.4 Chronic kidney disease, stage 4 (severe); C18.2 Malignant neoplasm of ascending colon; I50.42 Chronic combined systolic (congestive) and diastolic (congestive) heart failure; E11.22 Type 2 diabetes mellitus with diabetic chronic kidney disease; E87.6 Hypokalemia; I48.91 Unspecified atrial fibrillation

== ENCOUNTER → 2018-09-12 15:05 | Outpatient (CLI) | payer MEDICARE ==
[2018-08-15 10:02] VITALS: BMI 42.4
== END | disposition home or self-care (01) ==
LOC: D.LAB 15:05
DX: M25.561 Pain in right knee (principal); M25.571 Pain in right ankle and joints of right foot; W19.XXXA Unspecified fall, initial encounter

== ENCOUNTER 2018-10-04 10:21 | Inpatient (IN) | payer MEDICARE ==
[~2018-10-04] VITALS: Ht 180.3 cm; Wt 132.3 kg
[2018-10-04 11:49] LABS: BASOPHILS 0.6 % (0-2); HEMATOCRIT 35.8 % (42.0-54.0); IMMATURE GRANULOCYTES 0.5 % (0-5); MCH 28.7 pg (26.0-34.0); MCHC 30.7 g/dL (31.0-37.0); MCV 93.5 fL (80.0-100.0); MEAN PLATELET VOLUME 11.4 fL (7.4-10.4); MONOCYTES 12.3 % (2-11); NEUTROPHILS 63.6 % (40-80); PLATELET COUNT 207 10x3/uL (130-400); RBC 3.83 10x6/uL (4.20-6.10); RDW 15.5 % (11.5-14.5); WBC 8.8 10x3/uL (4.8-10.8)
[2018-10-04 11:57] LABS: ANION GAP 13.1 mmol/L (8-16); CALCIUM 8.5 mg/dL (8.5-10.1); CREATININE - SERUM 4.3 mg/dL (0.6-1.3); POTASSIUM - SERUM 3.1 mmol/L (3.5-5.1)
[2018-10-04 12:05] LABS: INR 1.25 (0.85-1.17); PROTIME 15.1 SECONDS (11.6-15.0)
[2018-10-04 12:06] LABS: APTT 35.1 SECONDS (22.8-39.4)
[2018-10-05] VITALS (7 sets, daily range): BP systolic 100–136; BP diastolic 54–75; BMI 39.0; BMI 41.1
--- NOTE | 2018-10-05 17:55 | NUR ---
RECA'D FROM RECOVERY, AWAKE, AND LETHARGIC, ANSWERS QUESTIONS APPROPRIATLY, CONNECTED TO SICU MONITORS, VSS, DENIES PAIN, O2 AT 2L NC INITIATED, LEFT HAND PIV WITH NS BY GTT, EPIDURAL IN PLACE, DRESSING CDI, ABLE TO SENSE TACTILE STIMULI, IN LOWER EXTREMITIES, PALACIOS TO GRAVITY, WITH CLEAR YELLOW DRAINAGE TO BAG, SCD,S PLACED ACCLAMATED TO ICU, FAMILY TO BEDSIDE, STATUS UPDATED, DISCUSSED HAVING PASSWORD AT THIS TIME, NONE MADE, NO OTHER NEEDS AT THIS TIME
[2018-10-05 18:46] LABS: BASOPHILS 0.5 % (0-2); EOSINOPHILS 2.5 % (0-7); HEMOGLOBIN 10.7 g/dL (13.5-17.5); IMMATURE GRANULOCYTES 0.2 % (0-5); LYMPHOCYTES 12.3 % (15-50); MCH 28.5 pg (26.0-34.0); MCHC 30.6 g/dL (31.0-37.0); MCV 93.1 fL (80.0-100.0); MEAN PLATELET VOLUME 11.6 fL (7.4-10.4); NEUTROPHILS 74.5 % (40-80); PLATELET COUNT 189 10x3/uL (130-400); RBC 3.76 10x6/uL (4.20-6.10); RDW 15.5 % (11.5-14.5); WBC 9.5 10x3/uL (4.8-10.8)
--- NOTE | 2018-10-05 19:45 | NUR ---
REPORT REC'D AND CARE ASSUMED, REC'D PT AWAKE, ALERT, AND ORIENTED X 4, O2 @ 2 LITERS VIA NC, PT DENIES PAIN OR NAUSEA, LEFT HAND PIV WITH NS @ 100CC/HR, ABDOMEN ROUND AND SOFT, MIDLINE LAP INCISIONS X 2 NOTED, RIGHT LOWER QUADRANT DRSG WITH SM AMOUNT OF BLOODY DRAINAGE NOTED, PALACIOS PATENT DRAINING CLEAR YELLOW URINE, BILAT SCD'S CONNECTED TO MACHINE AND TURNED ON, GENERALIZED EDEMA TO LOWER EXTS, EPIDURAL TAPED SECURELY TO BACK INFUSING @ 10CC/HR WITH 4CC Q20MIN BOLUS FOR PAIN AVAILABLE, BED IN LOW POSITION, CALL LIGHT IN REACH.
--- NOTE | 2018-10-05 20:15 | NUR ---
FAMILY AT BS, UPDATE PROVIDED AND QUESTIONS ANSWERED, PT DENIES NEEDS.
--- NOTE | 2018-10-05 21:00 | NUR ---
AT BS, ADMISSION ASSESSMENT COMPLETED, PT DOZING AT INTERVALS, BP STABLE, WILL CONT TO MONITOR FOR CHANGES.
--- NOTE | 2018-10-05 23:30 | NUR ---
REASSESSMENT COMPLETED, PT DENIES PAIN OR NEEDS, READJUSED FOR COMFORT, WARM BLANKET PROVIDED, DENIES FURTHER NEEDS.
[2018-10-06] VITALS (25 sets, daily range): BP systolic 83–139; BP diastolic 28–92; BMI 41.8
--- NOTE | 2018-10-06 00:20 | NUR ---
PHONED FROM WAITING ROOM CHECKING ON , UPDATE PROVIDED AND QUESTIONS ANSWERED.
--- NOTE | 2018-10-06 02:30 | NUR ---
PT AWAKE, CONCERNED ABOUT "WHAT IS GOING ON A STORM OR SOMETHING", EXPLAINED TO PT THERE IS A THUNDERSTORM, REQUESTING WATER TO DRINK, EXPLAINED TO PT HE COULD NOT HAVE WATER, OFFERED ORAL SWAB, PT REFUSES AT THIS TIME, STATES " I WILL JUST WAIT", DENIES FURTHER NEEDS, VSS.
--- NOTE | 2018-10-06 03:30 | NUR ---
NO CHANGES FROM PREVIOUS ASSESSMENT, ORAL SWABS PROVIDED TO MOISTEN MOUTH VSS
[2018-10-06 03:59] LABS: BASOPHILS 0.3 % (0-2); EOSINOPHILS 0.2 % (0-7); HEMATOCRIT 33.7 % (42.0-54.0); HEMOGLOBIN 10.3 g/dL (13.5-17.5); IMMATURE GRANULOCYTES 0.3 % (0-5); LYMPHOCYTES 9.3 % (15-50); MCH 28.5 pg (26.0-34.0); MCHC 30.6 g/dL (31.0-37.0); MCV 93.1 fL (80.0-100.0); MEAN PLATELET VOLUME 11.2 fL (7.4-10.4); MONOCYTES 10.1 % (2-11); NEUTROPHILS 79.8 % (40-80); PLATELET COUNT 190 10x3/uL (130-400); RBC 3.62 10x6/uL (4.20-6.10); RDW 15.4 % (11.5-14.5)
[2018-10-06 04:33] LABS: ALBUMIN 2.6 g/dL (3.4-5.0); ANION GAP 12.8 mmol/L (8-16); BILIRUBIN - TOTAL 1.42 mg/dL (0.2-1.3); CALCIUM 8.2 mg/dL (8.5-10.1); CARBON DIOXIDE 28.7 mmol/L (21.0-32.0); POTASSIUM - SERUM 3.5 mmol/L (3.5-5.1); PROTEIN - SERUM 6.6 g/dL (6.4-8.2)
[2018-10-06 04:37] LABS: TROPONIN-I 0.074 ng/mL (0.000-0.060)
--- NOTE | 2018-10-06 09:57 | NUR ---
PATIENT SLEEPING. NO NEEDS AT THIS TIME.
--- NOTE | 2018-10-06 10:19 | NUR ---
PATIENT SLEEPING. NO NEEDS AT THIS TIME.
--- NOTE | 2018-10-06 12:12 | NUR ---
PATIENT ASLEEP. NO SIGNS OF DISTRESS. WILL CONTINUE TO MONITOR.
--- NOTE | 2018-10-06 13:43 | NUR ---
PATIENT WIGGLING LEFT FOOT. SEEMS TO BE WAKING UP MORE AT THIS TIME. NO NEEDS
--- NOTE | 2018-10-06 15:01 | NUR ---
PATIENT RESTING. EASY TO AROUSE. NO NEEDS AT THIS TIME. CALLED FROM WAITING ROOM.
--- NOTE | 2018-10-06 15:17 | NUR ---
PATIENT REQUESTED BLANKETS BE REMOVED. NO FURTHER NEEDS AT THIS TIME
--- NOTE | 2018-10-06 16:46 | NUR ---
IN ROOM. MOISTURIZER APPLIED TO LIPS. PATIENT PROPPED UP ON RIGHT SIDE WITH PILLOW. NO NEEDS AT THIS TIME
--- NOTE | 2018-10-06 19:30 | NUR ---
REPORT REC'D AND CARE ASSUMED, REC'D PT ON O2 AT 2 LITERS VIA NC, PT AWAKE AND ORIENTED TO PERSON ONLY, ATTEMPTED TO REORIENT TO PLACE, TIME, AND SITUATION, PT REACHING INTO THE AIR FOR OBJECTS THAT ARE NOT THERE, LEFT FOREARM PIV WITH NS @ 100CC/HR, EPIDURAL TAPED SECURELY TO BACK INFUSING @ 7CC/HR WITH 4CC Q20MIN BOLUS AVAILABLE, PT DENIES PAIN, LAP INCISIONS NOTED TO ABD AND RIGHT LOWER QUADRANT INCISION WITH DRSG CDI, ABD ROUND BS SCANT, PALACIOS PATENT DRAINING CONCENTRATED URINE, BILAT SCDS INTACT, PPP, SR UP X 2, VISIBLE TO NURSES STATION.
--- NOTE | 2018-10-06 20:00 | NUR ---
DR. MALAVE NOTIFIED OF CONSULT, NO NEW ORDERS REC'D AT THIS TIME.
--- NOTE | 2018-10-06 20:00 | NUR ---
PT TALKING TO PEOPLE NOT IN ROOM, NO VISITORS IN AT THIS TIME, BOLUS COMPLETED, BP IMPROVED, WILL CONT TO MONITOR FOR CHANGES.
--- NOTE | 2018-10-06 21:00 | NUR ---
SCOPALAMINE PATCH FOUND STUCK TO PATIENT'S HAND, REMOVED, WILL LEAVE OFF AT THIS TIME.
--- NOTE | 2018-10-06 23:00 | NUR ---
REASSESSMENT COMPLETED, PT REMAINS CONFUSED AND APPEARS TO BE HALLUCINATING, REPOSITIONED UP IN BED AND ONTO LEFT SIDE SUPPORTED WITH PILLOWS, VSS.
[2018-10-07] VITALS (23 sets, daily range): BP systolic 101–139; BP diastolic 49–75; Ht 180.3 cm; Wt 132.3 kg
--- NOTE | 2018-10-07 01:25 | NUR ---
ATTEMPTED TO REPOSITION PT, OXYGEN TUBING OVER EYES PER PT, REPOSITIONED OXYGEN TUBING TO NARES, PT CUSSING STAFF AT TIMES, REMAINS CONFUSED, BP STABLE, WILL CONT TO MONITOR CLOSELY FOR CHANGES.
--- NOTE | 2018-10-07 03:00 | NUR ---
REASSESSMENT COMPLETED, PT REPOSITIONED IN BED FOR COMFORT, PT PULLING AT GOWN AND TELEMETRY, NOT ARGUMENTATIVE, TELEMETRY AND GOWN REAPPLIED, VSS, WILL CONT TO MONITOR FOR CHANGES.
--- NOTE | 2018-10-07 05:00 | NUR ---
PT DOZING AT INTERVALS, CONTINUES TO PULL AT LINES AND BP CUFF OCCASIONALLY DESPITE ATTEMPTS TO REORIENT, VISIBLE TO NURSES STATION, WILL MONITOR CLOSELY FOR CHANGES.
--- NOTE | 2018-10-07 07:30 | NUR ---
PATIENT ASSESSMENT COMPLETED. DRESSING CDI. NO NEEDS AT THIS TIME
[2018-10-07 07:32] LABS: BASOPHILS 0.2 % (0-2); EOSINOPHILS 0.1 % (0-7); HEMATOCRIT 34.7 % (42.0-54.0); HEMOGLOBIN 10.4 g/dL (13.5-17.5); IMMATURE GRANULOCYTES 0.4 % (0-5); MCH 28.8 pg (26.0-34.0); MEAN PLATELET VOLUME 11.9 fL (7.4-10.4); MONOCYTES 11.6 % (2-11); NEUTROPHILS 78.7 % (40-80); PLATELET COUNT 161 10x3/uL (130-400); RBC 3.61 10x6/uL (4.20-6.10); RDW 15.8 % (11.5-14.5)
[2018-10-07 07:33] LABS: MCV 96.1 fL (80.0-100.0); WBC 16.9 10x3/uL (4.8-10.8)
[2018-10-07 07:43] LABS: ALBUMIN 2.4 g/dL (3.4-5.0); ANION GAP 16.3 mmol/L (8-16); BILIRUBIN - TOTAL 1.61 mg/dL (0.2-1.3); CALCIUM 8.1 mg/dL (8.5-10.1); CARBON DIOXIDE 25.6 mmol/L (21.0-32.0); CREATININE - SERUM 4.9 mg/dL (0.6-1.3); MAGNESIUM - SERUM 2.1 mg/dL (1.8-2.4); PHOSPHOROUS 4.6 mg/dL (2.5-4.9); POTASSIUM - SERUM 3.9 mmol/L (3.5-5.1); PROTEIN - SERUM 6.7 g/dL (6.4-8.2)
--- NOTE | 2018-10-07 08:33 | NUR ---
PATIENT RESTING ON BACK. NO NEEDS AT THIS TIME.
--- NOTE | 2018-10-07 09:13 | NUR ---
PATIENT SLEEPING. OXYGEN PUT BACK ON. HUMIDIFIED WATER REQUESTED AND RECEIVED
--- NOTE | 2018-10-07 09:42 | NUR ---
AND FAMILY FROM [place] IN ROOM. NO NEEDS AT THIS TIME.
--- NOTE | 2018-10-07 10:39 | NUR ---
SON KURT AND DAUGHTER CORAL IN ROOM WITH CURT. CALL IN CODE SET UP. 09/19 NS STARTED AT 100 ML/H. QUESTIONS ASKED AND ANSWERED. NO NEEDS AT THIS TIME
--- NOTE | 2018-10-07 11:31 | NUR ---
PATIENT SHOUTING OUT FOR HELP. REORIENTED HIM. WILL CONTINUE TO MONITOR
--- NOTE | 2018-10-07 12:30 | NUR ---
PATIENT SLEEPING. NO NEEDS AT THIS TIME.
[2018-10-07 13:10] LABS: APPEARANCE CLOUDY (CLEAR); BILIRUBIN NEGATIVE (NEGATIVE); COLOR RED (YELLOW); GLUCOSE NEGATIVE (NEGATIVE); KETONE NEGATIVE (NEGATIVE); NITRITE NEGATIVE (NEGATIVE); PROTEIN 3+ mg/dL (NEGATIVE); UROBILINOGEN NORMAL (NORMAL)
[2018-10-07 13:12] LABS: BACTERIA MODERATE /hpf (NONE SEEN); EPITHELIAL CELLS 0-5 /hpf (0-5)
--- NOTE | 2018-10-07 13:30 | NUR ---
PATIENT CURT IN ROOM. PATIENT ATE HIS GREEN JELLO AND DRANK HIS APPLE JUICE. SWALLOWED HIS MEDS FINE. NO OTHER NEEDS AT THIS TIME.
--- NOTE | 2018-10-07 15:01 | NUR ---
PATIENT SLEEPING. NO NEEDS AT THIS TIME.
--- NOTE | 2018-10-07 15:20 | NUR ---
PATIENT RESTING. NO NEEDS AT THIS TIME.
--- NOTE | 2018-10-07 17:43 | NUR ---
PATIENT IN ROOM PASSING GAS. NO NEEDS AT THIS TIME
[2018-10-08] VITALS (24 sets, daily range): BP systolic 105–158; BP diastolic 57–82
[2018-10-08 02:14] LABS: CREATININE - URINE 100.8 mg/dL (30-125); PRO/CRE RATIO URINE 0.6 mg/g; PROTEIN - URINE 62.1 mg/dL (0.0-11.9)
[2018-10-08 04:39] LABS: HEMATOCRIT 35.9 % (42.0-54.0); HEMOGLOBIN 10.7 g/dL (13.5-17.5); MCH 28.7 pg (26.0-34.0); MCHC 29.8 g/dL (31.0-37.0); MCV 96.2 fL (80.0-100.0); MEAN PLATELET VOLUME 12.7 fL (7.4-10.4); PLATELET COUNT 184 10x3/uL (130-400); RBC 3.73 10x6/uL (4.20-6.10); RDW 15.8 % (11.5-14.5); WBC 20.8 10x3/uL (4.8-10.8)
[2018-10-08 04:43] LABS: ANION GAP 14.6 mmol/L (8-16); CALCIUM 8.6 mg/dL (8.5-10.1); CARBON DIOXIDE 27.2 mmol/L (21.0-32.0); CREATININE - SERUM 5.3 mg/dL (0.6-1.3); POTASSIUM - SERUM 3.8 mmol/L (3.5-5.1)
[2018-10-08 05:09] LABS: EOSINOPHILS 1 % (0-7); LYMPHOCYTES 14 % (15-50); MONOCYTES 13 % (2-11); NEUTROPHILS 72 % (40-80); PLATELET ESTIMATE NORMAL
--- NOTE | 2018-10-08 06:56 | NUR ---
10/07/18- 1929-SHIFT ASSESSMENT COMPLETE. PATIENT SLEEPING AROUSES EASILY TO VERBAL STIMULI, IS PLEASANT, AND KNOWS WHERE HE IS. PATIENT IS CONFUSED ON TIME AND SITUATION. 2039- AT BEDSIDE PATIENT RESTING QUIELTY AT THIS TIME. 2139-ENTER ROOM AND IS ON OTHER SIDE OF BED VERY CLOSE TO PATIENT. PATIENT IS AGITATED WANTING HIS PILLOW FROM HOME. YELLING AT TO GET IT. PATIENT IS ESCALATING IN AGITATION; TOLD THAT HE WAS GOING TO KNOCK THE SHIT OUT OF HER IF SHE DIDNT GET HIS PILLOW. IN PATIENT FACE PATIENT SWINGING ARMS IN AGITATION STORMS OUT OF UNIT CRYING AND YELLING. 2145-AFTER GETTING PATIENT SETTLED DOWN WENT OUT TO WAITING ROOM TO TELL THAT SHE WAS WELCOME TO COME BACK IN AND THAT I WAS AFRAID THE PATIENT WAS GOING TO HIT HER. STARTS YELLING AT ME THAT WE ARE GOING TO LET HER AND THAT I WAS NOT TAKING CARE OF HIM I SHOULD. WAS YELLING IN WAITING ROOM IN FRONT OF OTHER VISITORS. ALLOWED TO VENT AND TOLD THAT SHE COULD COME BACK WHEN SHE WAS READY. 2214-PATIENT READY TO LEAVE AND APOLIGIZED FOR HER BEHAVIOR. PATIENT IS RESTING QUIETLY AT THIS TIME. 0030-PATIENT PULLING AT WIRES REORIENTED TO SITUATION AND THAT HE IS IN THE HOSPITAL. PATIENT STATES HE ISNT GOING TO PULL ANYTHING OUT. 0230-PATIENT IS SLEEPING ON AND OFF. PULLS AT TELEMETRY WIRES AT TIMES AND YELLS FOR MOMMA (WHOM IS HIS ). CALL LIGHT WITHIN REACH. 0500-PATIENT SLEEPING AT THIS TIME. CALL LIGHT WIHTIN REACH. 0630-PATIENT BATHED AND PALACIOS CARE COMPLETE. CALL LIGHT WITHIN REACH.
--- NOTE | 2018-10-08 07:30 | NUR ---
REPORT RECEIVED. ASSESSMENT COMPLETE PER FLOW SHEET. VSS. PT GIVEN WATER PER REQUEST. DENIES FURTHER NEEDS WILL CONTINUE TO MONITOR
--- NOTE | 2018-10-08 09:20 | NUR ---
NUTRITION F/U CLEAR LIQUID DIET STARTED. FAMILY AT BEDSIDE. WILL MONITOR DIET ADVANCEMENT, PO INTAKE. RD FOLLOWING
--- NOTE | 2018-10-08 11:32 | NUR ---
REASSESSMENT COMPLETE PER FLOW SHEET. VSS. NO NEW CHANGES WILL CONTINUE TO MONITOR
--- NOTE | 2018-10-08 13:40 | NUR ---
ANESTHESIA AT BEDSIDE EPIDURAL REMOVED PER ANESTHESIA
--- NOTE | 2018-10-08 13:40 | NUR ---
ANESTHESIA REMOVED EPIDURAL AT BEDSIDE.
--- NOTE | 2018-10-08 14:42 | OP ---
PATIENT NAME: KURT BRIGHT MEDICAL RECORD: [id number] :40 LOCATION:.[facility] D.2312 ADMISSION DATE:10/05/18 SURGEON: ARISTEO MOYA MD DATE OF OPERATION: 10/05/2018 PREOPERATIVE DIAGNOSIS: Adenocarcinoma of the ascending colon. POSTOPERATIVE DIAGNOSIS: Adenocarcinoma of the ascending colon. PROCEDURES: Hand-assisted laparoscopic surgery - right hemicolectomy. SURGEON: Aristeo Moya MD PAPERHANGER AND PAINTER: None. BLOOD LOSS: Minimal. ANESTHESIA: General. COMPLICATIONS: None. The risks, possible complications, and alternatives to the procedure were explained to the patient. He elects to proceed. The discussion specifically included, but was not limited to, bleeding requiring emergency reoperation, infection, intestinal injury, and anastomotic leakage. OPERATIVE COURSE: The patient was conveyed to the operating room electively on 10/05/2018. General anesthesia was induced by the anesthesia staff. The abdomen was sterilely prepped and draped. A small skin justin was accomplished in the left upper quadrant. Veress needle was inserted through the skin justin into the peritoneal cavity. CO2 insufflation was begun. Once a sufficient pneumoperitoneum had been achieved, a 5-mm trocar was inserted in the epigastrium. Another 5-mm trocar was inserted at the umbilicus and a third 5-mm trocar was inserted in the midline. During insertion of the Veress needle and all trocars, there appeared to have been no injury to the bowels, any intraperitoneal or retroperitoneal structures. An abdominal survey was undertaken. I identified the cecum. The convexity of the liver was without lesions. I grasped the right colon. I incised along the right white line of Toldt with the laparoscopic EnSeal device. I mobilized the right colon. I took down the retroperitoneal reflection over the hepatic flexure of the colon. I was able to mobilize the hepatic flexure of the colon. I swept down the duodenum. I chose an area for placement of my GelPort. A transverse incision was accomplished between the anterior superior iliac spine and the right costal margin. I dissected down through skin and subcutaneous tissues. I then the external oblique muscle. I then the internal oblique muscle and I the transversus abdominis muscles. This was a muscle technique rather than a muscle division type technique. 0 Vicryls were placed and I incised the peritoneum between the 0 Vicryl sutures. The Anupam retractor was placed. On top of the Anupam retractor, a GelPort device was inserted. Through the GelPort device, I was able to mobilize the right colon some more utilizing my hand. Top of the Gelport device was then removed. OPERATIVE REPORT [id number] KURT BRIGHT I exteriorized the right colon. I stapled across the distal ileum with a GUERLINE-75 stapler. I stapled across the proximal transverse colon with a GUERLINE-75 stapler. I then swept down the duodenum as well as the right ureter, both of which were retracted during the operation and which were undamaged. The interpose mesentery between the ileal division and the colonic division, was taken down with the Super Jaw EnSeal device. This sealed and divided the mesentery. The mesenteric rent was closed with a running #1 Vicryl. I then placed the antimesenteric borders of the ileum and the colon into apposition side by side. These were kept in place with interrupted 3-0 Vicryl sutures. A small enterotomy and a small colotomy were accomplished. Anvils of the GUERLINE-75 stapler were advanced and then fired. The resulting intracolonic defect was closed with single firing of the TA 60 stapler. I ensured the small bowel was not twisted on its mesentery. I irrigated and aspirated the right upper quadrant. There was no bleeding. The transverse abdominis muscle and the peritoneum was closed with running #1 Vicryl. The internal oblique muscle was closed with running #1 Vicryl. The external oblique muscle was closed with a running #1 Vicryl. The subdermis was approximated with interrupted 3-0 Vicryls. The skin was approximated with a running intracuticular 4-0 Vicryl. At the umbilicus, the skin was closed with interrupted 4-0 Vicryl Rapide sutures. The other 2 trocar sites were closed with interrupted intracuticular 3-0 Vicryls. Benzoin and Steri-Strips were applied. The patient was then extubated and conveyed to post-anesthesia care unit where he was in stable condition. He will be admitted to the intensive care unit due to a history of coronary artery disease and due to chronic illness states. TRANSINT:[id number] Voice Confirmation ID: [id number] DOCUMENT ID: [id number] ARISTEO MOYA MD at 1442 CC: ROHAN ANDRES MD and YONI RAM DO [id number] DICTATION DATE: 10/06/181730 MACHINE TECHNICIAN: 10/06/18 2114 ADM IN [facility] [address] [place] [address]
--- NOTE | 2018-10-08 15:00 | NUR ---
REASSESSMENT COMPLETE PER FLOW SHEET. VSS. NO NEW CHANGES WILL CONTNIUE TO MONITOR
--- NOTE | 2018-10-08 15:38 | NUR ---
DR MOYA AT BEDSIDE. UPDATE GIVEN TO FAMILY STATED UNDERSTANDING. NO NEW CHANGES WILL CONTINUE TO MONITOR
--- NOTE | 2018-10-08 15:43 | NUR ---
CONSULT CALLED TO DR LANZA OFFICE, LET YURI KNOW THE CONSULT WAS ORDERED TO SEE THE PATIENT TOMMOROW NOT NEEDED TO SEE PT TONIGHT PER DR MOYA. STATED UNDESTANDING.
--- NOTE | 2018-10-08 16:30 | NUR ---
FAMILY AT BEDSIDE. GIVEN UDPATE
--- NOTE | 2018-10-08 17:52 | NUR ---
PT C/O OF ABDOMINAL PAIN, ULTRAM GIVEN
--- NOTE | 2018-10-08 18:48 | MORECARE ---
CASE MANAGEMENT DISCHARGE SUMMARY PATIENT: KURT BRIGHT UNIT: [id number] ADM DATE: 10/05/18 AGE: 78 : 40 SEX: M ROOM/BED: D.2312 AUTHOR: ROLO PRESTON PHYSICIAN: REFERRING PHYSICIAN: ARISTEO MOYA MD DATE OF SERVICE: 10/08/18 Discharge Plan Patient Name: KURT BRIGHT [facility] [facility] 1940 Planned Disposition: Home Anticipated Discharge Date: Discharge Date: Expected LOS: Initial Reviewer: [email or web address] Initial Review Date: 10/08/2018 Generated: 10/08/18 7:47 pm Patient Name: KURT BRIGHT Page [id number] at 1848 All edits/amendments must be made on the electronic document DICTATION DATE: 10/08/181846 SCHEDULE MAKER: NEEL 10/08/181846 RPT#: [id number] DC DATE: STATUS: ADM IN [facility] [address] [place] [address] END OF REPORT
--- NOTE | 2018-10-08 18:54 | MORECARE ---
CASE MANAGEMENT DISCHARGE SUMMARY PATIENT: KURT BRIGHT UNIT: [id number] ADM DATE: 10/05/18 AGE: 78 : 40 SEX: M ROOM/BED: D.2312 AUTHOR: KARY,DOC PHYSICIAN: REFERRING PHYSICIAN: ARISTEO MOYA MD DATE OF SERVICE: 10/08/18 Discharge Plan Patient Name: KURT BRIGHT Facility: [facility]:[place] : 1940 Planned Disposition: Home Health Service Anticipated Discharge Date: Discharge Date: Expected LOS: Initial Reviewer: [email or web address] Initial Review Date: 10/08/2018 Generated: 10/08/18 7:54 pm Comments DCP- Discharge Planning Updated by [email or web address]: Zeinab Brown on 10/08/18 5:[address] Patient Name: KURT BRIGHT Admission Status: Elective Accout number: [id number] Admission Date: 10-05-2018 : 1940 Admission Diagnosis: Attending: ARISTEO MOYA Current LOS: 3 Anticipated DC Date: Planned Disposition: Home Primary Insurance: MEDICARE A & B Discharge Planning Comments: CM met with patient and spouse at bedside. Patient plans to return home and resume Home Health Care with [facility]. Denies any discharge needs at this time. CM will continue to follow and assist as needed with discharge planning / needs. Gender Studies Professor: Zeinab Brown DCPIA - Discharge Planning Initial Assessment Updated by [email or web address]: Zeinab Brown on 10/08/18 6:50 pm * Is the patient Alert and Oriented? Yes * How many steps to enter\exit or inside your home? 2 - ramp * PCP Viky * [facility] * Preadmission Environment Home with Family * ADLs Partial Dependent * Partial ADLs (Assistance needed) Ambulation Bathing Dressing Eating Medication Management Toileting Transfers * Other Equipment electric w/c , walker, hospital bed, 02 @2L PRN * List name and contact numbers for known caregivers / representatives who currently or will assist patient after discharge: Clarisse Bright - spouse - [phone] * Verbal permission to speak to the caregivers and representatives has been obtained from the patient. Yes * Community resources currently utilized Home Health * Please name any agencies selected above. [facility] * Additional services required to return to the preadmission environment? No * Can the patient safely return to the preadmission environment? Yes * Has this patient been hospitalized within the prior 30 days at any hospital? No Last DP export: 10/08/18 5:48 p Patient Name: KURT BRIGHT Page 12926 at 1854 All edits/amendments must be made on the electronic document DICTATION DATE: 10/08/181853 STRATEGY ASSOCIATE: NEEL 10/08/181853 RPT#: [id number] DC DATE: STATUS: ADM IN [facility] [address] [place] [address] END OF REPORT
[2018-10-08 19:15] LABS: CKMB 1.5 U/L (0.0-3.6); CREATINE KINASE 250 UL (21-232)
[2018-10-08 19:16] LABS: TROPONIN-I 0.967 ng/mL (0.000-0.060)
[2018-10-08 23:41] LABS: CKMB 1.2 U/L (0.0-3.6); CREATINE KINASE 224 UL (21-232)
[2018-10-08 23:42] LABS: TROPONIN-I 0.696 ng/mL (0.000-0.060)
[2018-10-09] VITALS (23 sets, daily range): BP systolic 95–150; BP diastolic 53–103
[2018-10-09 05:31] LABS: HEMATOCRIT 38.9 % (42.0-54.0); HEMOGLOBIN 11.9 g/dL (13.5-17.5); MCH 28.9 pg (26.0-34.0); MCHC 30.6 g/dL (31.0-37.0); MCV 94.4 fL (80.0-100.0); MEAN PLATELET VOLUME 12.6 fL (7.4-10.4); PLATELET COUNT 175 10x3/uL (130-400); RBC 4.12 10x6/uL (4.20-6.10); RDW 16.1 % (11.5-14.5); WBC 19.8 10x3/uL (4.8-10.8)
[2018-10-09 05:32] LABS: BASOPHILS 0 % (0-2); EOSINOPHILS 0 % (0-7); LYMPHOCYTES 15 % (15-50); MONOCYTES 8 % (2-11); NEUTROPHILS 77 % (40-80); PLATELET ESTIMATE NORMAL; PLATELET MORPHOLOGY NORMAL PLT MORPH
[2018-10-09 05:47] LABS: CALC OSMOLALITY 312 mosm/kg (275-300); CALCIUM 8.5 mg/dL (8.5-10.1); CARBON DIOXIDE 20.7 mmol/L (21.0-32.0); CHLORIDE - SERUM 103 mmol/L (98-107); CKMB 1.2 U/L (0.0-3.6); CREATINE KINASE 212 UL (21-232); CREATININE - SERUM 5.8 mg/dL (0.6-1.3); GLUCOSE 224 mg/dL (74-106); POTASSIUM - SERUM 4.1 mmol/L (3.5-5.1); SODIUM 139 mmol/L (136-145); UREA NITROGEN 90 mg/dL (7-18); eGFR NON AFRICAN AMERICAN 10 mL/min (90-120)
[2018-10-09 05:50] LABS: TROPONIN-I 0.489 ng/mL (0.000-0.060)
--- NOTE | 2018-10-09 10:17 | NUR ---
0700 PULLED UP IN BED AND REPOSITIONED REPLACED GOWN ASSESSMENT COMPLETE
--- NOTE | 2018-10-09 10:18 | NUR ---
0900 ECHO COMPLETE PATIENT TOOK PO MEDS WITHOUT DIFFICULTY REFUSED BREAKFAST.
--- NOTE | 2018-10-09 15:01 | NUR ---
1100 PT REFUSES LUNCH AT BEDSIDE TO ENCOURAGE HIM TO EAT
--- NOTE | 2018-10-09 15:02 | NUR ---
1300 DR ANDRES ROUNDING ON PATIENT
--- NOTE | 2018-10-09 15:03 | NUR ---
[address] GOTTLIEB, FINANCIAL ASSOCIATE NOTED SPOKE WITH HIM ON PHONE
--- NOTE | 2018-10-09 19:56 | NUR ---
IV RESTARTED IN L AC WITH 20 G CATH GOOD BLOOD RETURN NOTED AND FLUSHED EASILY WITH SALINE. RESTARTED NS AT 75ML/HR PER MD ORDER.
--- NOTE | 2018-10-09 20:32 | NUR ---
1700 REMAINS AT BEDSIDE FOR SUPPORT AND TO ASSIST PATIENT
[2018-10-10] VITALS (24 sets, daily range): BP systolic 106–149; BP diastolic 56–84
[2018-10-10 05:14] LABS: BASOPHILS 0.2 % (0-2); EOSINOPHILS 4.1 % (0-7); HEMATOCRIT 35.2 % (42.0-54.0); HEMOGLOBIN 10.9 g/dL (13.5-17.5); IMMATURE GRANULOCYTES 1.4 % (0-5); LYMPHOCYTES 10.9 % (15-50); MCH 28.5 pg (26.0-34.0); MCV 92.1 fL (80.0-100.0); MEAN PLATELET VOLUME 12.9 fL (7.4-10.4); MONOCYTES 12.1 % (2-11); NEUTROPHILS 71.3 % (40-80); PLATELET COUNT 181 10x3/uL (130-400); RBC 3.82 10x6/uL (4.20-6.10); RDW 16.3 % (11.5-14.5); WBC 13.8 10x3/uL (4.8-10.8)
[2018-10-10 05:27] LABS: CALCIUM 8.6 mg/dL (8.5-10.1); CARBON DIOXIDE 22.5 mmol/L (21.0-32.0); CREATININE - SERUM 5.7 mg/dL (0.6-1.3); POTASSIUM - SERUM 3.5 mmol/L (3.5-5.1)
--- NOTE | 2018-10-10 07:41 | NUR ---
REPORT RECIEVED. ASSESSMENT COMPLETE PER FLOW SHEET. VSS. PT RESTING COMFORTABLY WILL CONTINUE TO MONITOR
--- NOTE | 2018-10-10 09:00 | NUR ---
FAMILY AT BEDSIDE. GIVEN UDPATE. DENIES NEEDS WILL CONTINUE TO MONITOR
--- NOTE | 2018-10-10 09:23 | NUR ---
NUTRITION F/U PT WITH FAMILY AT BEDSIDE. REPORTS VERY LITTLE INTAKE CLEAR LIQUID BREAKFAST. WILL MONITOR DIET ADVANCEMENT, PO INTAKE. RD FOLLOWING
--- NOTE | 2018-10-10 11:30 | NUR ---
REASSESSMENT COMPLETE PER FLOW SHEET. VSS. NO NEW CHANGES WILL CONTINUE OT MONITOR
--- NOTE | 2018-10-10 12:57 | NUR ---
DR ANDRES AT BEDSIDE NO [facility]
--- NOTE | 2018-10-10 15:19 | NUR ---
REASSESSMENT COMPLETE PER FLOW SHEET. VSS. NO NEW CHANGES WILL CONTNIUE TO MONITOR
--- NOTE | 2018-10-10 17:20 | NUR ---
PT UP IN CHAIR, DENIES ANY NEEDS OR WANTS, VSS, CALL LIGHT IN REACH
--- NOTE | 2018-10-10 23:35 | NUR ---
REASSESSMENT PER FLOWSHEET, RESTING QUIETLY WITH HOME CPAP ON. VSS.
[2018-10-11] VITALS (21 sets, daily range): BP systolic 96–151; BP diastolic 47–107
--- NOTE | 2018-10-11 01:07 | NUR ---
PT AWOKE AND PULLED HIS HOME CPAP MACHINE OFF TABLE - IT CAME APART AND CRACKED THE LID. IT DID GO BACK TOGETHER AND APPEARS TO BE FUNCTIONING. PT MORE ORIENTED AT THIS TIME, DOES NOT WANT CPAP BACK ON AT THIS TIME. VSS. NO SIGN OF DISTRESS.
--- NOTE | 2018-10-11 03:23 | NUR ---
REASSESSMENT PER FLOWSHEET, NO ACUTE CHANGES. PT REPOSITIONED UP IN BED. COMPLETE BATH AND LINEN CHANGE DONE, PALACIOS CARE DONE.
--- NOTE | 2018-10-11 04:47 | NUR ---
PT RESTING QUIETLY WITH HOME CPAP ON.
[2018-10-11 05:12] LABS: HEMATOCRIT 37.4 % (42.0-54.0); HEMOGLOBIN 11.6 g/dL (13.5-17.5); MCH 28.8 pg (26.0-34.0); MCV 92.8 fL (80.0-100.0); MEAN PLATELET VOLUME 12.8 fL (7.4-10.4); PLATELET COUNT 206 10x3/uL (130-400); RBC 4.03 10x6/uL (4.20-6.10); RDW 16.6 % (11.5-14.5); WBC 14.1 10x3/uL (4.8-10.8)
[2018-10-11 05:19] LABS: ANION GAP 17.5 mmol/L (8-16); CALCIUM 8.5 mg/dL (8.5-10.1); CARBON DIOXIDE 23.6 mmol/L (21.0-32.0); CREATININE - SERUM 5.6 mg/dL (0.6-1.3); POTASSIUM - SERUM 3.1 mmol/L (3.5-5.1)
[2018-10-11 05:48] LABS: EOSINOPHILS 5 % (0-7); LYMPHOCYTES 23 % (15-50); MONOCYTES 8 % (2-11); NEUTROPHILS 63 % (40-80); PLATELET ESTIMATE NORMAL
--- NOTE | 2018-10-11 06:00 | NUR ---
K+ 3.1 - INITIATE KCL RIDERS PER MD ORDER.
--- NOTE | 2018-10-11 07:00 | NUR ---
REC'D REPORT AND RESUMED CARE, AWAKE AND CONFUSED, PM SHOWING ON MONITOR AT 55 RATE, LAYING CROSSWAYS IN BED, REPOSITIONED UP AND TO BACK WITH PERSONNEL X2, ASSESSMENT COMPLETED PER FLOWSHEET, CALL LIGHT IN REACH
--- NOTE | 2018-10-11 08:00 | NUR ---
MORNING MEDS TO BEDSIDE, TAKEN WITHOUT DIFFICULTY WITH SIPS OF WATER
--- NOTE | 2018-10-11 11:00 | NUR ---
LAYING CROSSWAYS IN BED, PULLING AT LINES, SAYS HE HAS TO GO TO [facility], NO EASILY REFOCUSED, REPOSITIONED UP AND TO BACK WITH HEELS FLOATED, ASSESSMENT COMPLETE PER FLOWSHEET, VSS
--- NOTE | 2018-10-11 12:00 | NUR ---
CALLED TO BEDSIDE BY DAUGHTER, LAYING SIDEWAYS IN BED, WITH LEG HANGING OVER SIDE, PULLING AGAINTS RAILS SAYING NO THAT HE IS NOT GOING TO LET US PULL HIM UP, ABLE TO CONVINCE HIM AFTER A FEW MINUTES, REPOSITIONED UP AND TO RIGHT SIDE,
--- NOTE | 2018-10-11 15:00 | NUR ---
NO ACUTE CHANGE FROM PREVIOUS ASSESSMENT, RESTING WITH NO SIGN OF DISTRESS, VSS
--- NOTE | 2018-10-11 16:30 | NUR ---
I AND O'S COMPLETED, PULLED OUT PALACIOS, WITH BULB INTACT, BLEEDING WITH CLOTS NOTED SKINCARE AND LINEN CHANGE COMPLETED, REFUSED DINNER TRAY
--- NOTE | 2018-10-11 23:00 | NUR ---
Received patient resting in bed with with eyes open, assessment completed per flowsheet. Patient confused/disoriented to time/place/situation, reorients with limited success. S1/S2 noted NSR with regular pacing on telemetry and HR 86, rythmic and regular. Breathing is even/unlabored on room air with O2 sat 94%, lung sounds clear bilateral upper and mid with diminished lower. Abdominal lap sites x3, well approximated. All pulses palpable with cap refill < 3 sec, skin warm/dry. L foot toes discolored, dressing CDI. Denies pain or other needs at this time, see flowsheet for details. All VSS and will continue to monitor.
[2018-10-12] VITALS (22 sets, daily range): BP systolic 90–144; BP diastolic 53–83
--- NOTE | 2018-10-12 02:58 | NUR ---
Reassessment completed per flowsheet, no changes from previous assessment. S1/S2 noted Sinus mary on telemetry with HR 57, rythmic and regular. Breathing is even/unlabored on room air with O2 sat 96%, lung sounds clear bilateral upper and mid with diminished lower. Abdomen is obese/round, previous lap sites well approximated. All pulses palpable with cap refill < 3 sec, skin warm/dry. Denies pain or other needs at this time, repositioned for comfort. See flowsheet for details, all VSS and will continue to monitor.
--- NOTE | 2018-10-12 03:11 | NUR ---
Patient resting in bed with eyes open, disoriented to time/place/situation. Follows instructions, requires frequent reorientation. Denies pain or other needs at this time, all VSS and will continue to monitor.
[2018-10-12 03:58] LABS: BASOPHILS 0.5 % (0-2); EOSINOPHILS 2.4 % (0-7); HEMATOCRIT 36.5 % (42.0-54.0); HEMOGLOBIN 11.2 g/dL (13.5-17.5); IMMATURE GRANULOCYTES 3.4 % (0-5); LYMPHOCYTES 13.9 % (15-50); MCH 28.6 pg (26.0-34.0); MCHC 30.7 g/dL (31.0-37.0); MCV 93.4 fL (80.0-100.0); MEAN PLATELET VOLUME 12.7 fL (7.4-10.4); MONOCYTES 13.6 % (2-11); NEUTROPHILS 66.2 % (40-80); PLATELET COUNT 175 10x3/uL (130-400); RBC 3.91 10x6/uL (4.20-6.10); RDW 16.7 % (11.5-14.5); WBC 14.6 10x3/uL (4.8-10.8)
[2018-10-12 04:17] LABS: ANION GAP 17.9 mmol/L (8-16); CALCIUM 8.5 mg/dL (8.5-10.1); CARBON DIOXIDE 22.9 mmol/L (21.0-32.0); CREATININE - SERUM 5.7 mg/dL (0.6-1.3); POTASSIUM - SERUM 3.8 mmol/L (3.5-5.1)
--- NOTE | 2018-10-12 07:00 | NUR ---
REPORT RECEIVED. ASSESSMENT COMPLETE PER FLOW SHEET. VSS. WILL CONTINUE TO MONITOR
--- NOTE | 2018-10-12 07:50 | NUR ---
DR MALAVE AT BEDSIDE. GIVEN UDPATE. NO NEW ORDERS
--- NOTE | 2018-10-12 09:20 | NUR ---
NUTRITION F//U PT SLEEPING SOUNDLY. SMALL AMT CLEAR LIQUID BREAKFAST CONSUMED. WILL CONTINUE TO MONITOR DIET ADVANCEMENT, PO INTAKE. RD FOLLOWING
--- NOTE | 2018-10-12 11:00 | NUR ---
REASSESSMENT COMPLETE PER FLOW SHEET. VSS NO NEW CHANGES PT RESTING COMFORTABLY WILL CONTINUE TO MONITOR
--- NOTE | 2018-10-12 13:08 | NUR ---
PARTIAL BB LINEN CHANGE ADM. LARGE LIQUID BM NTOED
--- NOTE | 2018-10-12 15:00 | NUR ---
REASSESSMENT COMPLETE PER FLOW SHEET. VSS NO NEW CHANGES WILL CONTINUE TO MONITOR
--- NOTE | 2018-10-12 16:55 | NUR ---
PT TO NUCLEAR MED
--- NOTE | 2018-10-12 16:56 | NUR ---
FAMILY AT BEDSIDE. GIVEN UDPATE.
--- NOTE | 2018-10-12 19:00 | NUR ---
Received patient resting in bed with eyes closed, assessment completed per flowsheet. Patient disoriented to time/situation, follows instructions. S1/S2 noted Sinus Yovany on telemetry with regular pacing and HR 55. Breathing is shallow/unlabored on 2L via NC with O2 sat 95%, crackles noted bilateral upper and mid with diminished lower. All pulses palpable with cap refill < 3 sec, skin warm/dry. Repositioned for comfort, see flowsheet for details. All VSS and will continue to monitor.
--- NOTE | 2018-10-12 21:00 | NUR ---
Patient resting in bed with family at bedside, discussed current status with all questions answered to satisfaction. HS meds given without difficulty, no further needs at this time and will continue to monitor.
--- NOTE | 2018-10-12 23:00 | NUR ---
Reassessment completed per flowsheet, no changes from previous assessment. S1/S2 noted Sinus Yovany with regular pacing on telemetry. Breathing is shallow on 2L via NC with O2 sat 95%, crackles noted bilateral upper and mid with diminished lower. All pulses palpable with cap refill < 3 sec, skin warm/dry. Repositioned for comfort, see flowsheet for details. All VSS and will continue to monitor.
[2018-10-13] VITALS (21 sets, daily range): BP systolic 99–142; BP diastolic 47–87
--- NOTE | 2018-10-13 01:00 | NUR ---
Patient sleeping in bed with eyes closed, no s/s of distress at this time. Repositioned for comfort, no further needs at this time and will continue to monitor.
--- NOTE | 2018-10-13 02:55 | NUR ---
Reassessment completed per flowsheet, no changes from previous assessment. S1/S2 noted NSR with regular pacing noted on telemetry. Breathing is shallow on 2L via NC with O2 sat 94%, crackles noted bilateral upper and mid with diminished lower. All pulses palpable with cap refill < 3 sec, skin warm/dry. Denies pain or other needs at this time, see flowsheet for details. All VSS and will continue to monitor.
--- NOTE | 2018-10-13 05:00 | NUR ---
Patient resting in bed with eyes closed, denies pain or other needs at this time. Patient remains disoriented to time/situation, follows instructions. All VSS and will continue to monitor.
[2018-10-13 08:13] LABS: BASOPHILS 0.2 % (0-2); EOSINOPHILS 5.4 % (0-7); HEMOGLOBIN 11.1 g/dL (13.5-17.5); IMMATURE GRANULOCYTES 3.1 % (0-5); LYMPHOCYTES 11.9 % (15-50); MCH 28.4 pg (26.0-34.0); MCHC 30.8 g/dL (31.0-37.0); MCV 92.1 fL (80.0-100.0); MEAN PLATELET VOLUME 12.3 fL (7.4-10.4); MONOCYTES 11.7 % (2-11); NEUTROPHILS 67.7 % (40-80); PLATELET COUNT 172 10x3/uL (130-400); RBC 3.91 10x6/uL (4.20-6.10); RDW 16.8 % (11.5-14.5); WBC 11.5 10x3/uL (4.8-10.8)
[2018-10-13 08:23] LABS: ALBUMIN 2.1 g/dL (3.4-5.0); ANION GAP 15.6 mmol/L (8-16); BILIRUBIN - TOTAL 1.48 mg/dL (0.2-1.3); CALCIUM 8.1 mg/dL (8.5-10.1); CARBON DIOXIDE 25.6 mmol/L (21.0-32.0); PROTEIN - SERUM 6.4 g/dL (6.4-8.2)
[2018-10-13 08:25] LABS: POTASSIUM - SERUM 3.2 mmol/L (3.5-5.1)
--- NOTE | 2018-10-13 08:25 | NUR ---
UP IN BED RESTING AT THIS TIME, RESPIRATIONS STEADY AND UNLABORED. AWAKENS EASILY WHEN SPOKEN TO. NO ACUTE DISTRESS NOTED. WILL CONTINUE PLAN OF CARE.
--- NOTE | 2018-10-13 10:24 | NUR ---
AT BEDSIDE AT THIS TIME. NO ACUTE DISTRESS NOTED. PT TURNED Q2H. WILL CONTINUE PLAN OF CARE.
--- NOTE | 2018-10-13 11:25 | NUR ---
DRESSING CHANGE APPLIED TO COCCYX, SITE NOTED TO HAVE AN OPEN SORE THAT HAD ESCAR TISSUR. MEPILEX DRESSING APPLIED TO SITE, WOUND CONSULT ORDERED WELL. WILL CONTINUE PLAN OF CARE.
--- NOTE | 2018-10-13 13:26 | NUR ---
UP IN BED RESTING AT THIS TIME. RESPIRATIONS STEADY AND UNLABORED. AWAKENS EASILY WHEN SPOKEN TO. NO ACUTE DISTRESS NOTED. WILL CONTINUE PLAN OF CARE.
--- NOTE | 2018-10-13 13:29 | NUR ---
DR MOYA PAGED REGARDING CONSULT.
--- NOTE | 2018-10-13 15:10 | NUR ---
INCONTINENT BOWEL MOVEMENT NOTED AT THIS TIME. TOTAL LINEN CHANGE PROVIDED AT THIS TIME ALONG [facility] AND PALACIOS CARE. NO ACUTE DISTRESS NOTED. WILL CONTINUE PLAN OF CARE.
--- NOTE | 2018-10-13 17:11 | NUR ---
NO ACUTE DISTRESS NOTED AT THIS TIME. RESTING IN BED AT THIS TIME, AT BEDSIDE. RESPIRATIONS STEADY AND UNLABORED RATE. AWAKENS EASILY WHEN SPOKEN TO. WILL CONTINUE PLAN OF CARE.
--- NOTE | 2018-10-13 19:00 | NUR ---
RECEIVED PATIENT FROM DAY SHIFT RN, SLEEPING AT THIS TIME BUT OPENS EYES TO VERBAL COMMAND. INITIAL SHIFT ASSESSMENT COMPLETED, SEE FLOWSHEET. VSS. WILL MONITOR CLOSELY THROUGH OUT THE NIGHT.
--- NOTE | 2018-10-13 21:00 | NUR ---
PATIENT HAS NO PM MEDS SCHEDULED AT THIS HOUR ONLY A BLOOD SUGAR, 141, NO INTERVENTION NEEDED. AT BEDSIDE. PATIENT APPEARS TO BE RESTING COMFORTABLY. WILL CTM.
--- NOTE | 2018-10-13 23:00 | NUR ---
PATIENT SLEEPING. NO CHANGE. WILL CTM.
[2018-10-14] VITALS (11 sets, daily range): BP systolic 109–146; BP diastolic 30–111
--- NOTE | 2018-10-14 03:00 | NUR ---
PATIENT RESTLESS, YELLING OUT, CONFUSED. REORIENTED TO TIME, PLACE AND SITUATION. VSS. WILL CTM.
[2018-10-14 04:04] LABS: ALBUMIN 2.3 g/dL (3.4-5.0); ANION GAP 19.3 mmol/L (8-16); BILIRUBIN - TOTAL 1.6 mg/dL (0.2-1.3); CALCIUM 8.2 mg/dL (8.5-10.1); CARBON DIOXIDE 22.7 mmol/L (21.0-32.0); CREATININE - SERUM 5.7 mg/dL (0.6-1.3); PROTEIN - SERUM 6.7 g/dL (6.4-8.2)
[2018-10-14 04:18] LABS: BASOPHILS 0.3 % (0-2); EOSINOPHILS 2.7 % (0-7); HEMATOCRIT 38.3 % (42.0-54.0); HEMOGLOBIN 11.9 g/dL (13.5-17.5); IMMATURE GRANULOCYTES 2.3 % (0-5); LYMPHOCYTES 9.2 % (15-50); MCH 28.6 pg (26.0-34.0); MCHC 31.1 g/dL (31.0-37.0); MCV 92.1 fL (80.0-100.0); MEAN PLATELET VOLUME 12.2 fL (7.4-10.4); MONOCYTES 12.1 % (2-11); NEUTROPHILS 73.4 % (40-80); PLATELET COUNT 150 10x3/uL (130-400); RBC 4.16 10x6/uL (4.20-6.10); RDW 16.6 % (11.5-14.5); WBC 12.4 10x3/uL (4.8-10.8)
[2018-10-14 04:57] LABS: EOSINOPHILS 2 % (0-7); LYMPHOCYTES 11 % (15-50); MONOCYTES 15 % (2-11); NEUTROPHILS 69 % (40-80); PLATELET ESTIMATE NORMAL
--- NOTE | 2018-10-14 05:00 | NUR ---
STOOD AT BEDSIDE TO COMFORT PATIENT BECAUSE HE KEEPS YELLING "HELP ME" AND "I WANT OUT." AGAIN, PATIENT REORIENTED. TV TURNED ON TO PROMOTE CONVERSATION IN AN EFFORT TO HELP CALM PATIENT DOWN. NO ACUTE CHANGES NOTED. VSS. WILL CTM.
--- NOTE | 2018-10-14 07:00 | NUR ---
REC'D CARE OF PT. PLEASANTLY CONFUSED. REORIENTED TO PLACE, TIME AND SITUATION.
--- NOTE | 2018-10-14 08:37 | NUR ---
FAMILY ASSISTING WITH KYLEE TRAY.
--- NOTE | 2018-10-14 10:15 | NUR ---
REMAINS CONFUSED. VSS.
--- NOTE | 2018-10-14 11:21 | NUR ---
FSBS 154. DID NOT TREAT. NOT EATING MUCH.
--- NOTE | 2018-10-14 12:00 | NUR ---
LUNCH TRAY SERVED. FAMILY AT BEDSIDE HELPING WITH TRAY.
--- NOTE | 2018-10-14 13:30 | NUR ---
RESTING WITH EYES CLOSED. VSS.
--- NOTE | 2018-10-14 14:26 | NUR ---
SATTING 97% ON RA.
--- NOTE | 2018-10-14 16:26 | NUR ---
INCONTINENT OF STOOL. BATHED, LINEN CHANGED, AND PERICARE PERFORMED.
--- NOTE | 2018-10-14 16:51 | NUR ---
INCONTINENT OF STOOL. BATHED. LINENS CHANGED. PERICARE PERFORMED.
--- NOTE | 2018-10-14 17:56 | NUR ---
ROOM 2133 REC'D FOR TRANSFER. CALLED TO GIVE REPORT. THEY WILL HAVE TO CALL ME BACK THEY SAID.
--- NOTE | 2018-10-14 18:35 | NUR ---
ARRIVE TO ROOM VIA BED FROM ICU. TRANSFER TO BED X4 PERSON ASSIST. SPOUSE AT BEDSIDE. T-97.4, HR-61, BP-168/42. RESERVE LT ARM FOR DVT FROM PICC LINE. RT AC IV SL. CONTINUE PLAN OF CARE AND SAFETY PRECAUTIONS.
--- NOTE | 2018-10-14 19:33 | NUR ---
RECIEVED UP IN BED WITH HOB ELEVATED. ALERT AND ORIENTED TO PERSON ONLY. SPOUSE AT BEDSIDE. IV TO RIGHT AC SL.. RIGHT FOOT HAS NECROTIC TOES. RASH TO STEFANO ARMS. PACEMAKER TO RIGHT CHEST. 3 INCISIONS TO ABD THAT ARE SCABBED OVER, NO REDNESS OR DRAINAGE TO SITES. DSG TO COCCYX CDI. F/C INTACT WITH CLEAR YELLOW URINE DRAINING TO BEDSIDE DRAINAGE SYSTEM. DENIES ANY NEEDS AT THIS TIME. MARGARITA;L CONT. POC.
[2018-10-15 00:43] VITALS: BP 98/56
--- NOTE | 2018-10-15 02:00 | NUR ---
PULLED IV OUT. VERY RESTLESS AND PULLING AT F/C TUBING. ABLE TO REDIRECT. WILL ATTEMPT TO RESTART IV WHEN CALMER.
[2018-10-15 04:17] VITALS: BP 133/51
[2018-10-15 05:53] LABS: HEMATOCRIT 35.1 % (42.0-54.0); HEMOGLOBIN 10.8 g/dL (13.5-17.5); MCH 28.3 pg (26.0-34.0); MCHC 30.8 g/dL (31.0-37.0); MCV 91.9 fL (80.0-100.0); MEAN PLATELET VOLUME 12.2 fL (7.4-10.4); PLATELET COUNT 173 10x3/uL (130-400); RBC 3.82 10x6/uL (4.20-6.10); RDW 16.8 % (11.5-14.5); WBC 13.2 10x3/uL (4.8-10.8)
[2018-10-15 06:15] LABS: ALBUMIN 2.2 g/dL (3.4-5.0); BILIRUBIN - TOTAL 1.5 mg/dL (0.2-1.3); CALCIUM 7.9 mg/dL (8.5-10.1); CARBON DIOXIDE 26.5 mmol/L (21.0-32.0); CREATININE - SERUM 5.3 mg/dL (0.6-1.3); POTASSIUM - SERUM 3.5 mmol/L (3.5-5.1); PROTEIN - SERUM 6.6 g/dL (6.4-8.2)
[2018-10-15 08:00] LABS: EOSINOPHILS 1 % (0-7); LYMPHOCYTES 20 % (15-50); MONOCYTES 13 % (2-11); NEUTROPHILS 66 % (40-80); PLATELET ESTIMATE NORMAL
--- NOTE | 2018-10-15 12:21 | NUR ---
Rehab Note- Acute Inpatient Rehab prescreen magy received. Reviewed the patient's medical record- Nephrology notes many questions to be clarified at this point. Will follow at this time to also see his functional gain with PT. Thank you for this referral! Maral Carpenter RN Clinical Liaison, [facility]
[2018-10-15 13:18] VITALS: BP 137/51
--- NOTE | 2018-10-15 14:44 | MORECARE ---
CASE MANAGEMENT DISCHARGE SUMMARY PATIENT: KURT BRIGHT UNIT: [id number] ADM DATE: 10/05/18 AGE: 78 : 40 SEX: M ROOM/BED: D.2133 AUTHOR: KARY,DOC PHYSICIAN: REFERRING PHYSICIAN: ARISTEO MOYA MD DATE OF SERVICE: 10/15/18 Discharge Plan Patient Name: KURT BRIGHT Facility: [facility]:[place] : 1940 Planned Disposition: Inpatient Rehab Anticipated Discharge Date: Discharge Date: Expected LOS: Initial Reviewer: [email or web address] Initial Review Date: 10/08/2018 Generated: 10/15/18 3:44 pm Comments DCP- Discharge Planning Updated by [email or web address]: Zeinab Brown on 10/08/18 5:[address] Patient Name: KURT BRIGHT Admission Status: Elective Accout number: [id number] Admission Date: 10-05-2018 : 1940 Admission Diagnosis: Attending: ARISTEO MOYA Current LOS: 3 Anticipated DC Date: Planned Disposition: Home Primary Insurance: MEDICARE A & B Discharge Planning Comments: CM met with patient and spouse at bedside. Patient plans to return home and resume Home Health Care with [facility]. Denies any discharge needs at this time. CM will continue to follow and assist as needed with discharge planning / needs. Maltster: Zeinab Brown DCPIA - Discharge Planning Initial Assessment Updated by [email or web address]: Zeinab Brown on 10/08/18 6:50 pm * Is the patient Alert and Oriented? Yes * How many steps to enter\exit or inside your home? 2 - ramp * PCP Viky * [facility] * Preadmission Environment Home with Family * ADLs Partial Dependent * Partial ADLs (Assistance needed) Ambulation Bathing Dressing Eating Medication Management Toileting Transfers * Other Equipment electric w/c , walker, hospital bed, 02 @2L PRN * List name and contact numbers for known caregivers / representatives who currently or will assist patient after discharge: Clarisse Bright - spouse - [phone] * Verbal permission to speak to the caregivers and representatives has been obtained from the patient. Yes * Community resources currently utilized Home Health * Please name any agencies selected above. [facility] * Additional services required to return to the preadmission environment? No * Can the patient safely return to the preadmission environment? Yes * Has this patient been hospitalized within the prior 30 days at any hospital? No Last DP export: 10/08/18 5:54 p Patient Name: KURT BRIGHT Page 86248 at 1444 All edits/amendments must be made on the electronic document DICTATION DATE: 10/15/18 1444 CONDENSER CLEANER: NEEL 10/15/18 1444 RPT#: [id number] DC DATE: STATUS: ADM IN [facility] [address] [place] [address] END OF REPORT
--- NOTE | 2018-10-15 15:00 | NUR ---
ALERT ORIENTED TO SELF. SPOUSE REQUESTING PATIENT GET OOB AND PLACED IN CHAIR. CALLED PHYSICAL THERAPY. DUE TO SAFETY ISSUES, ISAEL STATES, "IT WILL HAVE TO BE TOMORROW BECAUSE THERE WILL BE NOONE TO GET HIM BACK TO BED AND HE WOULDN'T EVEN STAND FOR ME EARLIER. HE JUST KEPT TRYING TO LAY BACK DOWN. WE WILL TRY AGAIN TOMORROW." INFORM SPOUSE AND ENCOURAGED HER TO ENCOURAGE PATIENT TOMORROW WHEN PHYSICAL THERAPY IS IN ROOM. SPOUSE AGREES. CONTINUE PLAN OF CARE AND SAFETY PRECAUTIONS.
--- NOTE | 2018-10-15 15:00 | MORECARE ---
CASE MANAGEMENT DISCHARGE SUMMARY PATIENT: KURT BRIGHT UNIT: [id number] ADM DATE: 10/05/18 AGE: 78 : 40 SEX: M ROOM/BED: D.2133 AUTHOR: KARY,DOC PHYSICIAN: REFERRING PHYSICIAN: ARISTEO MOYA MD DATE OF SERVICE: 10/15/18 Discharge Plan Patient Name: KURT BRIGHT [facility] : 1940 Planned Disposition: Inpatient Rehab Anticipated Discharge Date: Discharge Date: Expected LOS: Initial Reviewer: [id number] Initial Review Date: 10/08/2018 Generated: 10/15/18 4:00 pm Comments DCP- Discharge Planning Updated by [id number]: Federico Herman on 10/15/18 1:[address] Patient Name: KURT BRIGHT Encounter No: [id number] : 1940 Primary Insurance: MEDICARE A & B Anticipated DC Date: Planned Disposition: Inpatient Rehab External Planned Provider: [facility] INPATIENT REHAB DCP follow-up note: CM RECEIVED ORDER FOR INPATIENT REHAB PRESCREENING. CM SPOKE TO PT AND SPOUSE IN ROOM. PT LETHARGIC DURING CM CONSULT VISIT. CM DISCUSSED INPATIENT REHAB PRESCREENING ORDER, PROVIDERS AND LOCATIONS OF INPATIENT REHAB. CM DISCUSSED REQUIREMENT OF ABILITY TO PARTICIPATE IN THREE HOURS OF PROGRESSIVE THERAPY. CM DISCUSSED [facility] REHAB SERVICES, LOCATIONS AND PROVIDERS. CM PROVIDED [facility] CHOICE LISTING. PT'S SPOUSE TEARFUL, DOES NOT WANT TO CONSIDER SENDING PT TO A [facility] FACILITY. SHE STATES SHE WOULD TAKE PT HOME FIRST. CM REVIEWED THERAPY NOTES, DISCUSSED WITH PT'S SPOUSE WHO STATES SHE WOULD JUST HAVE TO "TRY HER BEST TO TAKE CARE OF HIM AT HOME." PT'S SPOUSE WILL CONSIDER INPATIENT REHAB AT [place], WILL NOT CONSIDER [facility] FACILITY AT THIS TIME. CM PROVIDED AND DISCUSSED IMPORTANT MESSAGE FROM MEDICARE. PT'S SPOUSE ASKED CM TO CALL JAMIE BRIGHT, PT'S SON AT [phone], TO INFORM AND DISCUSS REHAB WITH HIM ALSO. CM CALLED JAMIE BRIGHT, , LEFT MESSAGE WITH CM CONTACT INFORMATION. CM PROVIDED PT'S SPOUSE WITH CM CONTACT INFORMATION. CM WAITING INPATIENT REHAB PRESCREENING AND ADMISSION DETERMINATION FROM [facility] INPAT[facility] RE[facility]. Federico Herman, CASE MANAGEMENT DCP- Discharge Planning Updated by [id number]: Zeinab Brown on 10/08/18 5:[address] Patient Name: KURT BRIGHT Admission Status: Elective Accout number: [id number] Admission Date: 10-05-2018 : 1940 Admission Diagnosis: Attending: ARISTEO MOYA Current LOS: 3 Anticipated DC Date: Planned Disposition: Home Primary Insurance: MEDICARE A & B Discharge Planning Comments: CM met with patient and spouse at bedside. Patient plans to return home and resume Home Health Care with [facility]. Denies any discharge needs at this time. CM will continue to follow and assist as needed with discharge planning / needs. Body Cleaner: Zeinab Brown DCPIA - Discharge Planning Initial Assessment Updated by [id number]: Zeinab Brown on 10/08/18 6:50 pm * Is the patient Alert and Oriented? Yes * How many steps to enter\\exit or inside your home? 2 - ramp * PCP Viky * [facility] * Preadmission Environment Home with Family * ADLs Partial Dependent * Partial ADLs (Assistance needed) Ambulation Bathing Dressing Eating Medication Management Toileting Transfers * Other Equipment electric w/c , walker, hospital bed, 02 @2L PRN * List name and contact numbers for known caregivers / representatives who currently or will assist patient after discharge: Curt Bright - spouse - [phone] * Verbal permission to speak to the caregivers and representatives has been obtained from the patient. Yes * Community resources currently utilized Home Health * Please name any agencies selected above. [facility] * Additional services required to return to the preadmission environment? No * Can the patient safely return to the preadmission environment? Yes * Has this patient been hospitalized within the prior 30 days at any hospital? No Coverage Notice Reviewer: [id number] - Federico Herman Notice Issued Date-Time: 10/15/2018 13:00 Notice Type: Patient Choice Letter Notice Delivered To: Family Member Relationship to Patient: Spouse Housing Case Manager Name: CURT BRIGHT Delivery Method: HAND - Hand Delivered Jessica Days: Prior Verbal Notification: Recipient Understood Notice: Yes Recipient Signature: Yes Med Rec Note Co-signed by Attending: Coverage Notice Comment: SNF LISTING PROVIDER; SPOUSE REFUSED SNF PLACEMENT FOR PT. Reviewer: [id number] - Federico Herman Notice Issued Date-Time: 10/15/2018 13:00 Notice Type: IM Discharge Notice Notice Delivered To: Family Member Relationship to Patient: Spouse Housing Case Manager Name: CURT BRIGHT Delivery Method: HAND - Hand Delivered Jessica Days: Prior Verbal Notification: Recipient Understood Notice: Yes Recipient Signature: Yes Med Rec Note Co-signed by Attending: Coverage Notice Comment: Last DP export: 10/15/18 1:44 p Patient Name: KURT BRIGHT Page [id number] at 1500 All edits/amendments must be made on the electronic document DICTATION DATE: 10/15/181458 HEATER ENGINEER HELPER: NEEL 10/15/181458 RPT#: [id number] DC DATE: STATUS: ADM IN [facility] [address] [place] [address] END OF REPORT
[2018-10-15 17:22] VITALS: BP 136/52
--- NOTE | 2018-10-15 19:36 | NUR ---
RESUMING PATIENT CARE. PATIENT IS ALERT AND ORIENTED. RESPIRATIONS ARE EVEN AND UNLABORED. NO S/S OF DISTRESS. NO C/O PAIN. CALL LIGHT WITHIN REACH. WILL CPOC.
[2018-10-15 20:51] VITALS: BP 125/46
--- NOTE | 2018-10-15 21:56 | NUR ---
WENT INTO PATIENT ROOM TO ADMINISTER HIS MEDICATION. PATIENT HAD ALL 4 RAILS UP. I PUT THE ONE RAIL DOWN AND EXPLAINED TO THE PATIENTS THAT WHEN ALL FOUR RAILS ARE UP ITS A FORM OF RESTRAINT AND AGAINST HOSPITAL POLICY. PATIENT BEGAN YELLING "THIS IS MY I AM KEEPING ALL THE RAILS UP" PATIENT WANTED TO SPEAK WITH THE CHARGE NURSE. CHARGE NURSE WENT IN TO ROOM. THE BEGAN YELLING AT THE CHARGE NURSE, "THIS IS MY I AM KEEPING ALL FOUR RAILS UP." I AM GOING TO REPORT ALL OF YOU TOMORROW.
[2018-10-16 00:02] VITALS: BP 126/34
--- NOTE | 2018-10-16 03:33 | NUR ---
PATIENT RESTING COMFORTABLY IN BED. PER ALL FOUR BED RAILS UP. RESPIRATIONS ARE EVEN AND UNLABORED. NO S/S OF DISTRESS. NO C/O PAIN. CALL LIGHT WITHIN REACH. WILL CPOC.
--- NOTE | 2018-10-16 04:20 | NUR ---
EMBEDDED SYSTEMS DESIGNER AND I CHANGED PATIENT. MEPLEX PLACED ON STAGE 2 PRESSURE SORE. PATIENT CONTINUES TO REFUSE TO ALLOW US TO PUT ON SIDE RAIL DOWN. PATIENT CONTINUES TO HAVE ALL FOUR SIDE RAILS UP.
[2018-10-16 04:42] VITALS: BP 124/42
[2018-10-16 06:19] LABS: BASOPHILS 0.3 % (0-2); EOSINOPHILS 4.7 % (0-7); HEMATOCRIT 33.5 % (42.0-54.0); HEMOGLOBIN 10.1 g/dL (13.5-17.5); LYMPHOCYTES 8.6 % (15-50); MCH 27.9 pg (26.0-34.0); MCHC 30.1 g/dL (31.0-37.0); MCV 92.5 fL (80.0-100.0); MEAN PLATELET VOLUME 12.4 fL (7.4-10.4); NEUTROPHILS 70.4 % (40-80); PLATELET COUNT 173 10x3/uL (130-400); RBC 3.62 10x6/uL (4.20-6.10); RDW 16.6 % (11.5-14.5); WBC 10.5 10x3/uL (4.8-10.8)
[2018-10-16 06:43] LABS: ALBUMIN 2.1 g/dL (3.4-5.0); ANION GAP 13.8 mmol/L (8-16); BILIRUBIN - TOTAL 1.33 mg/dL (0.2-1.3); CALCIUM 7.9 mg/dL (8.5-10.1); CARBON DIOXIDE 26.5 mmol/L (21.0-32.0); CREATININE - SERUM 5.5 mg/dL (0.6-1.3); POTASSIUM - SERUM 3.3 mmol/L (3.5-5.1); PROTEIN - SERUM 6.1 g/dL (6.4-8.2)
--- NOTE | 2018-10-16 07:30 | NUR ---
RECEIVED REPORT. NO FAMILY AT BEDSIDE AT THIS TIME. PATIENT STATES THAT WENT TO GET COFFEE. ALL 4 SIDERAILS ARE UP, I INFORMED PATIENT THAT IS CONSIDERED A RESTRAINT AND HE SAID TO LEAVE UP PER HIS . ON 3L PER NC. HOME CPAP AT BEDSIDE. NO IV ACCESS. WILL COMPLETE ASSESSMENT SHORTLY.
[2018-10-16 08:15] VITALS: BP 125/56
--- NOTE | 2018-10-16 09:14 | NUR ---
I WENT IN TO EXPLAIN OPERATIVE PERMITS AND HAVE THEM SIGNED BUT WANTS TO WAIT UNTIL THE CT OF THE HEAD IS DONE BEFORE SHE WILL SIGN ANYTHING. I MADE THE PATIENT NPO IN CASE. I PLACED THE SIDE RAIL ON THE RIGHT SIDE AT THE HEAD DOWN.
--- NOTE | 2018-10-16 09:50 | NUR ---
PATIENT SKIN TONE IS DEHYDRATED. I ATTEMTPED X 2 TO SITE A 22 G AND WAS UN-SUCCESSFUL. I CALLED AZ BROWN SUPERVISOR ROSE GRADING NURSE TO ATTEMPT.
--- NOTE | 2018-10-16 10:10 | NUR ---
AZ BROWN, WATER PROOFER NURSE TO GET IV TO LEFT HAND X 2 STICKS WITH 22 G.
--- NOTE | 2018-10-16 10:44 | NUR ---
NORMA WITH SURGERY TO CALL AND ASK THAT I PRE-OP PATIENT FOR SURGERY. I TOLD HIM THAT THE WILL NOT CONSENT TO THE SURGERY UNTIL AFTER THE CT OF THE HEAD WHICH WILL BE DONE AFTER LUNCH SINCE HE ATE BREAKFAST.
--- NOTE | 2018-10-16 11:02 | NUR ---
CALL THAT SURGERY HAS BEEN CANCELLED FOR TODAY AND PATIENT WILL BE MADE NPO PAST MIDNIGHT TONIGHT.
--- NOTE | 2018-10-16 11:19 | NUR ---
COMPLAINTS OF PAIN TO BUTT AND BACK, ULTRAM GIVEN WITH SIP OF WATER. STILL NPO.
[2018-10-16 11:46] VITALS: BP 114/42
--- NOTE | 2018-10-16 13:19 | NUR ---
STILL IS NPO FOR CT SCAN OF HEAD. IS AT BEDSIDE.
--- NOTE | 2018-10-16 13:23 | NUR ---
I CALLED AND SPOKE WITH RADIOLOGY AND BETTY SAID THAT HE IS GOING TO TRY AND GET TO HIM WITHIN THE HOUR. THIS IS RELAYED TO THE PATIENT AND .
--- NOTE | 2018-10-16 14:36 | NUR ---
RETURNS FROM RADIOLOGY.
--- NOTE | 2018-10-16 15:03 | NUR ---
TO LEAVE ROOM TO GO HOME FOR A SHORT TIME. DOOR LEFT OPEN, PATIENT IS RESTING WITH EYES CLOSED. RESP ARE EVEN. 3 SIDERAILS ARE UP, CALL LIGHT IS AT SIDE.
[2018-10-16 15:07] VITALS: BP 130/40
--- NOTE | 2018-10-16 15:55 | NUR ---
POC GLUCOSE IS 139, PER SLIDING SCALE NO INSULIN NEEDED. POSITIONED TO RIGHT SIDE WITH PILLOWS FOR COMFORT.
--- NOTE | 2018-10-16 16:24 | NUR ---
I CALLED SURGERY AND SPOKE TO ORALIA TO HAVE HER SCHEDULE THE SURGERY FOR TOMORROW. SHE SAID SHE WILL TAKE CARE OF IT.
--- NOTE | 2018-10-16 19:25 | NUR ---
RESUMING CARE . PT LAYING IN BED EYES CLOSED BREATH SOUNDS EVEN AT BEDSIDE , IV LFT HAND, PALACIOS IN PLACE NO C/O OF PAIN OR DISTRESS AT THIS TIME CALL LIGHT IN REACH WILL CONT TO MONITOR
[2018-10-16 21:03] VITALS: BP 141/61
[2018-10-17 00:31] VITALS: BP 144/52
[2018-10-17 06:12] LABS: BASOPHILS 0.4 % (0-2); EOSINOPHILS 7.3 % (0-7); HEMATOCRIT 35.8 % (42.0-54.0); HEMOGLOBIN 10.8 g/dL (13.5-17.5); IMMATURE GRANULOCYTES 1.4 % (0-5); LYMPHOCYTES 11.4 % (15-50); MCH 28.1 pg (26.0-34.0); MCHC 30.2 g/dL (31.0-37.0); MONOCYTES 13.7 % (2-11); NEUTROPHILS 65.8 % (40-80); PLATELET COUNT 192 10x3/uL (130-400); RBC 3.85 10x6/uL (4.20-6.10); RDW 16.8 % (11.5-14.5); WBC 10.9 10x3/uL (4.8-10.8)
[2018-10-17 06:17] VITALS: BP 114/72
[2018-10-17 06:29] LABS: % SATURATION 12 % (15-55); IRON 32 ug/dl (35-150); TOTAL IRON BIND CAPACITY 250 ug/dl (260-445); UNSAT IRON BIND CAPACITY 218 ug/dl (150-375)
[2018-10-17 06:40] LABS: ALBUMIN 2.2 g/dL (3.4-5.0); ANION GAP 14.1 mmol/L (8-16); BILIRUBIN - TOTAL 1.5 mg/dL (0.2-1.3); CALCIUM 8.3 mg/dL (8.5-10.1); CARBON DIOXIDE 27.5 mmol/L (21.0-32.0); CREATININE - SERUM 5.5 mg/dL (0.6-1.3); POTASSIUM - SERUM 3.6 mmol/L (3.5-5.1); PROTEIN - SERUM 6.5 g/dL (6.4-8.2)
--- NOTE | 2018-10-17 07:37 | NUR ---
ROUNDING DONE WITH PATIENT ON HOME CPAP AT THIS TIME. NPO STATUS FOR SURGERY TODAY. AT BEDISIDE. LEFT HAND PIV SEEN WITH SALINE LOCK. PALACIOS CATH PATENT WITH YELLOW URINE.
[2018-10-17 08:35] VITALS: BP 150/40
[2018-10-17 11:36] VITALS: BP 121/53
--- NOTE | 2018-10-17 12:08 | NUR ---
NO PRE-OP ORDERS IN EMAR. I TALKED TO NORMA ABOUT THIS.
--- NOTE | 2018-10-17 13:08 | NUR ---
TO OR VIA BED.
[2018-10-17 15:41] VITALS: BP 147/47
--- NOTE | 2018-10-17 15:42 | NUR ---
1540-RETURNS FROM RECOVERY ROOM WITH RIGHT HEMISPLIT SEEN TO RIGHT UPPER CHEST WITH DRESSING C/D/I, DATED.
--- NOTE | 2018-10-17 15:45 | NUR ---
I CALLED NORMA IN DIALYSIS UNIT TO LET HIM KNOW THAT THE PATIENT IS BACK.
--- NOTE | 2018-10-17 16:04 | NUR ---
TO DIALYSIS VIA BED.
--- NOTE | 2018-10-17 17:51 | NUR ---
PINK BUNNY BOOTS ARE PLACED IN ROOM. IF PATIENT IS NOT BACK AT END OF THIS SHIFT, I WILL PASS ALONG FOR NEXT NURSE TO PLEASE PUT THEM ON PER DR GOTTLIEB.
--- NOTE | 2018-10-17 18:35 | NUR ---
PATIENT TO RETURN FROM DIALYSIS. AT BEDSIDE.
--- NOTE | 2018-10-17 18:48 | NUR ---
PINK FOAM BOOTIES PLACED TO BILATERAL FEET.
--- NOTE | 2018-10-17 19:15 | NUR ---
RESUMING CARE. PT LAYING IN BED EATING DINNER ALERT BREATH SOUNDS EVEN IV IN LFT HAND , HEMOSPLIT IN RT CHEST DRSG CDI, @BEDSIDE CL LIGHTIN REACH WILL CONT TO MONITOR
--- NOTE | 2018-10-17 21:00 | NUR ---
CHANGED DRSG TO BOTTOM WITH MEPILEX CDI
[2018-10-17 21:11] VITALS: BP 142/26
--- NOTE | 2018-10-17 23:45 | NUR ---
HEARD A SCREAM FROM RM 2132 UPON ENTERING THE ROOM I SEE PT SITTING UP ON THE SIDE OF THE BED NO CLOTHES ON ON THE OTHER SIDE PULLING HIS ARM AND SHE STATED " I HAVE BEEN HOLDING HE LIGHT" ADVISED HER THE LIGHT WAS NOT ON , PT WAS VERY CONFUSED PULLING AT PALACIOS AND REMOVED DRSGING ON BUTTOCKS AND KICKED OFF BOTH PINK BOOTIES , WHILE HELPING PT BACK TO BED HE STATED " IM SICK OF THIS HOSPITAL AND WE BETTER NOT HURT HIM " CALL SINDI ROSENBERG SHE ADVISED TO REPEAT VALUIM IF PT DOES NOT CALM DOWN
[2018-10-18] VITALS (7 sets, daily range): BP systolic 102–142; BP diastolic 39–58
[2018-10-18 06:10] LABS: BASOPHILS 0.5 % (0-2); EOSINOPHILS 4.8 % (0-7); HEMATOCRIT 35.8 % (42.0-54.0); HEMOGLOBIN 10.8 g/dL (13.5-17.5); IMMATURE GRANULOCYTES 1.2 % (0-5); LYMPHOCYTES 7.3 % (15-50); MCH 28.1 pg (26.0-34.0); MCHC 30.2 g/dL (31.0-37.0); MEAN PLATELET VOLUME 12.7 fL (7.4-10.4); MONOCYTES 14.5 % (2-11); NEUTROPHILS 71.7 % (40-80); PLATELET COUNT 209 10x3/uL (130-400); RBC 3.85 10x6/uL (4.20-6.10); RDW 16.8 % (11.5-14.5); WBC 12.9 10x3/uL (4.8-10.8)
[2018-10-18 06:18] LABS: ALBUMIN 2.2 g/dL (3.4-5.0); ANION GAP 15.6 mmol/L (8-16); BILIRUBIN - TOTAL 1.71 mg/dL (0.2-1.3); CALCIUM 8.1 mg/dL (8.5-10.1); CARBON DIOXIDE 26.8 mmol/L (21.0-32.0); CREATININE - SERUM 4.4 mg/dL (0.6-1.3); POTASSIUM - SERUM 3.4 mmol/L (3.5-5.1); PROTEIN - SERUM 6.5 g/dL (6.4-8.2)
--- NOTE | 2018-10-18 10:03 | NUR ---
KAYCEE RIDLEYOVEN DAUBER NURSE TO COME LOOK AT PT'S BOTTOM. PT WON'T KEEP ON MEPILEX.
--- NOTE | 2018-10-18 10:13 | NUR ---
LEFT HAND 22G IV DC'D WITH CATH INTACT. WILL RESTART NEW IV.
--- NOTE | 2018-10-18 11:30 | NUR ---
22G IV PLACED IN LEFT HAND ON 2ND ATTEMPT. IV SALINE LOCKED. PT TOLERATED WELL.
--- NOTE | 2018-10-18 13:01 | NUR ---
Nutrition follow-up: Diet: Renal ADA PO intake poor; only about 25% of some meals Nursing has been ordering pt food not usually allowed on a renal ADA diet, ie. chocolate cake, milk, orange juice etc. Pts labs (K, PO4 will need to be monitored closely). Pt with hemosplit placement and daily dialysis at this time labs reviewed Wt: 278# RDN following.
--- NOTE | 2018-10-18 13:52 | NUR ---
Visited with the patient's today regarding the acute rehab referral for this patient. He continues to be a good candidate for the ARU, but is confused and also recieving dialysis every day at this time. Rehab will continue to follow his progress. Discussed with the CM Juliocesar Herman. Samreen Beebe RN Clinical Liaison, Rehab
--- NOTE | 2018-10-18 14:32 | NUR ---
Left great toe (medial) dry scab. Left #2 and #3 toes dry escar on the pads of toes. Left lower leg (lateral lower leg) 1cm x 0.5cm open area. No redness or odor Right #2 and #3 toes are bruised Right heel has 3cm x 3cm x escar unstageable pressure injury on lateral side. Right heel is boggy. Coccyx 6cm x 9 cm unstageable pressure injury. Recommendations: -Air overlay mattress -Turn/reposition pt every 2 hours (use wedges for proper positioning) -Plurogel to wounds on right heel and coccyx -Bridge heels off pillows/mattress -Bolton #2 and #3 toes on left foot with betadine and leave open to air
--- NOTE | 2018-10-18 15:06 | NUR ---
DAILY DRESSING CHANGE ON COCCYX AND RIGHT LATERAL HEEL DONE TODAY BY WOUND CARE NURSE.
--- NOTE | 2018-10-18 15:12 | MORECARE ---
CASE MANAGEMENT DISCHARGE SUMMARY PATIENT: KURT BRIGHT UNIT: [id number] ADM DATE: 10/05/18 AGE: 78 : 40 SEX: M ROOM/BED: D.2133 AUTHOR: ROLO PRESTON PHYSICIAN: REFERRING PHYSICIAN: ARISTEO MOYA MD DATE OF SERVICE: 10/18/18 Discharge Plan Patient Name: KURT BRIGHT Facility: [facility]:[place] : 1940 Planned Disposition: Inpatient Rehab Anticipated Discharge Date: Discharge Date: Expected LOS: Initial Reviewer: [email or web address] Initial Review Date: 10/08/2018 Generated: 10/18/18 4:12 pm Comments DCP- Discharge Planning Updated by [id number]: Federico Herman on 10/18/18 2:[address] Patient Name: KURT BRIGHT Encounter No: [id number] : 1940 Primary Insurance: MEDICARE A & B Anticipated DC Date: Planned Disposition: Inpatient Rehab External Planned Provider: [facility] INPATIENT REHAB DCP follow-up note: CM SPOKE TO PARAM OF INPATIENT REHAB, THEY PLAN TO ACCEPT PT WHEN MEDICALLY STABLE AND DOES NOT REQUIRE DAILY DIALYSIS. PT AND SPOUSE NOTIFIED, IN AGREEMENT WITH DISCHARGE TO INPATIENT REHAB. PT'S SPOUSE, CURT, ASKED CM TO CALL HER SON, JAMIE, AND ANSWER QUESTIONS. CM CALLED JAMIE WITH NUMBER PROVIDED BY MRS. BRIGHT, CM ANSWERED DISCHARGE PLANNING QUESTIONS REGARDING REHAB SERVICES, ADVISED BOTH JAMIE AND MRS. BRIGHT TO SPEAK TO THE DOCTOR OR NURSE REGARDING MEDICAL QUESTIONS. BOTH REPORTED UNDERSTANDING. NOTIFY [facility] INPATIENT REHAB WHEN PT IS NO LONGER NEEDING DAILY DIALYSIS SERVICES AND IS STABLE FOR DISCHARGE TO REHAB. Federico Herman, CASE NERISSA DCP- Discharge Planning Updated by [id number]: Federico Herman on 10/15/18 1:[address] Patient Name: KURT BRIGHT Encounter No: [id number] : 1940 Primary Insurance: MEDICARE A & B Anticipated DC Date: Planned Disposition: Inpatient Rehab External Planned Provider: [facility] INPATIENT REHAB DCP follow-up note: CM RECEIVED ORDER FOR INPATIENT REHAB PRESCREENING. CM SPOKE TO PT AND SPOUSE IN ROOM. PT LETHARGIC DURING CM CONSULT VISIT. CM DISCUSSED INPATIENT REHAB PRESCREENING ORDER, PROVIDERS AND LOCATIONS OF INPATIENT REHAB. CM DISCUSSED REQUIREMENT OF ABILITY TO PARTICIPATE IN THREE HOURS OF PROGRESSIVE THERAPY. CM DISCUSSED NURSING HOME REHAB SERVICES, LOCATIONS AND PROVIDERS. CM PROVIDED NURSING HOME CHOICE LISTING. PT'S SPOUSE TEARFUL, DOES NOT WANT TO CONSIDER SENDING PT TO A NURSING HOME FACILITY. SHE STATES SHE WOULD TAKE PT HOME FIRST. CM REVIEWED THERAPY NOTES, DISCUSSED WITH PT'S SPOUSE WHO STATES SHE WOULD JUST HAVE TO "TRY HER BEST TO TAKE CARE OF HIM AT HOME." PT'S SPOUSE WILL CONSIDER INPATIENT REHAB AT [place], WILL NOT CONSIDER NURSING HOME FACILITY AT THIS TIME. CM PROVIDED AND DISCUSSED IMPORTANT MESSAGE FROM MEDICARE. PT'S SPOUSE ASKED CM TO CALL JAMIE BRIGHT, PT'S SON AT [phone], TO INFORM AND DISCUSS REHAB WITH HIM ALSO. CM CALLED JAMIE BRIGHT, , LEFT MESSAGE WITH CM CONTACT INFORMATION. CM PROVIDED PT'S SPOUSE WITH CM CONTACT INFORMATION. CM WAITING INPATIENT REHAB PRESCREENING AND ADMISSION DETERMINATION FROM [facility] INPATIENT REH[facility]. Federico Herman, CASE MANAGEMENT DCP- Discharge Planning Updated by [id number]: Zeinab Brown on 10/08/18 5:[address] Patient Name: KURT BRIGHT Admission Status: Elective Accout number: [id number] Admission Date: 10-05-2018 : 1940 Admission Diagnosis: Attending: ARISTEO MOYA Current LOS: 3 Anticipated DC Date: Planned Disposition: Home Primary Insurance: MEDICARE A & B Discharge Planning Comments: CM met with patient and spouse at bedside. Patient plans to return home and [facility]. Denies any discharge needs at this time. CM will continue to follow and assist as needed with discharge planning / needs. Filter Cleaner: Zeinab Brown DCPIA - Discharge Planning Initial Assessment Updated by [id number]: Zeinab Brown on 10/08/18 6:50 pm * Is the patient Alert and Oriented? Yes * How many steps to enter\\exit or inside your home? 2 - ramp * PCP Viky * [facility] * Preadmission Environment Home with Family * ADLs Partial Dependent * Partial ADLs (Assistance needed) Ambulation Bathing Dressing Eating Medication Management Toileting Transfers * Other Equipment electric w/c , walker, hospital bed, 02 @2L PRN * List name and contact numbers for known caregivers / representatives who currently or will assist patient after discharge: Curt Bright - spouse - [phone] * Verbal permission to speak to the caregivers and representatives has been obtained from the patient. Yes * Community resources currently utilized Home Health * Please name any agencies selected above. [facility] * Additional services required to return to the preadmission environment? No * Can the patient safely return to the preadmission environment? Yes * Has this patient been hospitalized within the prior 30 days at any hospital? No Coverage Notice Reviewer: PUSHPA Herman Notice Issued Date-Time: 10/15/2018 13:00 Notice Type: Patient Choice Letter Notice Delivered To: Family Member Relationship to Patient: Spouse Metal Polisher Name: CURT BRIGHT Delivery Method: HAND - Hand Delivered Jessica Days: Prior Verbal Notification: Recipient Understood Notice: Yes Recipient Signature: Yes Med Rec Note Co-signed by Attending: Coverage Notice Comment: SNF LISTING PROVIDER; SPOUSE REFUSED SNF PLACEMENT FOR PT. Reviewer: PUSHPA Herman Notice Issued Date-Time: 10/15/2018 13:00 Notice Type: IM Discharge Notice Notice Delivered To: Family Member Relationship to Patient: Spouse Metal Polisher Name: CURT BRIGHT Delivery Method: HAND - Hand Delivered Jessica Days: Prior Verbal Notification: Recipient Understood Notice: Yes Recipient Signature: Yes Med Rec Note Co-signed by Attending: Coverage Notice Comment: Reviewer: PUSHPA Herman Notice Issued Date-Time: 10/18/2018 11:30 Notice Type: IM Discharge Notice Notice Delivered To: Family Member Relationship to Patient: Spouse Metal Polisher Name: CURT BRIGHT Delivery Method: HAND - Hand Delivered Jessica Days: Prior Verbal Notification: Recipient Understood Notice: Yes Recipient Signature: Yes Med Rec Note Co-signed by Attending: Coverage Notice Comment: Last DP export: 10/15/18 2:00 p Patient Name: KURT BRIGHT Page [id number] at 1512 All edits/amendments must be made on the electronic document DICTATION DATE: 10/18/18 1512 LIQUOR TESTER: NEEL 10/18/18 1512 RPT#: [id number] DC DATE: STATUS: ADM IN [facility] [address] [place] [address] END OF REPORT
--- NOTE | 2018-10-18 16:38 | NUR ---
PT TAKEN TO DIALYSIS VIA BED. DIALYSIS NURSE GOING TO GIVE DOSIUM FERRLECIT IN DIALYSIS.
--- NOTE | 2018-10-18 19:15 | NUR ---
RESUMING CARE PT IN DIALYSIS
--- NOTE | 2018-10-18 19:45 | NUR ---
PT BACK FROM DIALYSIS VIA HOSPITAL BED V/S WNL , PT A&CONFUSED BREATH SOUND EVEN IV LFT HAND 22 GAUGE RT CHEST HEMOSPLIT FLOEY IN PLACE, FISRT STEP OVERLAY MATTRESS NO C/O OF PAIN OR DISRESS CL IN REACH WILL CONT TO MONITOR
--- NOTE | 2018-10-18 22:00 | NUR ---
PT ANXIOUS A TRYING TO GET OUT OF BED PULLING AT PALACIOS
--- NOTE | 2018-10-18 22:35 | NUR ---
PAGED RENALM LEE ANN PERERAN CALL BACK ORDER FOR PT TO HAVE VALIUM 5MG Q HS PRN
--- NOTE | 2018-10-18 23:30 | NUR ---
PT PULLED OFF DRSG TO BOTTOM REDRESSED WITH MEPILEX
[2018-10-19] VITALS (14 sets, daily range): BP systolic 89–134; BP diastolic 32–77
--- NOTE | 2018-10-19 08:03 | NUR ---
RESUMING PT CARE, PT LAYING IN BED ALERT BUT CONFUSED, AT BEDSIDE. PT IS SCRATCHING ALL OVER, DR ANDRES IS AT BEDSIDE AND GAVE ORDERS FOR BENADRYL AND CHEST X-RAY. ORDERS NOTED. CALL LIGHT IN REACH, WILL CONTINUE TO MONITOR AND FOLLOW PLAN OF CARE.
--- NOTE | 2018-10-19 09:46 | NUR ---
APRIL BAL APRN FROM DR MOYA'S OFFICE AT BEDSIDE, NEW ORDERS FOR BARIUM SWALLOW STUDY AND NORCO 5/325 Q6H PRN. ORDERS NOTED.
[2018-10-19 12:17] LABS: HEPATITIS C ANTIBODY 0.1 (0.0-0.9)
--- NOTE | 2018-10-19 13:00 | NUR ---
PT ARRIVED TO UNIT AND ASSISTED IN TO ICU BED, MONITORS ON AND WORKING, VITALS STABLE, PT AWAKE, CONFUSED. WILL CONTINUE TO OBSERVE.
--- NOTE | 2018-10-19 13:15 | NUR ---
PT IS CONFUSED AND TRYING TO PULL EVERY LINE HE HAS OUT AND CLIMBING OUT OF BED, I SAT OUTSIDE HIS ROOM ALL DAY TO WATCH HIM. HE IS NOW IN ICU FOR RESTRAINTS.
--- NOTE | 2018-10-19 15:00 | NUR ---
FAMILY AT BEDSIDE, UPDATE PROVIDED, PT RESTING CALMLY IN BED, NO SIGNS/SYMPTOMS OF PAIN OR DISCOMFORT NOTED, NO HYPOTENSION NOTED DURING MY CARE, MONITORS ON AND WORKING, VITALS STABLE, SEE FLOW SHEET FOR FURTHER DETAILS. WILL CONTINUE TO OBSERVE.
--- NOTE | 2018-10-19 17:00 | NUR ---
PT TURNED AND REPOSITIONED, DR GOTTLIEB AT BEDSIDE CONCERNING PTS FEET, FAMILY AT BEDSIDE, UPDATE PROVIDED. NO SIGNS/SYMPTOMS OF PAIN OR DISCOMFORT. MONITORS ON AND WORKING, VITALS STABLE, WILL CONTINUE TO OBSERVE.
[2018-10-19 18:48] LABS: ALBUMIN 2.2 g/dL (3.4-5.0); ALKALINE PHOSPHATASE 107 U/L (46-116); ALT (SGPT) 26 U/L (10-68); BILIRUBIN - TOTAL 1.74 mg/dL (0.2-1.3); CALC OSMOLALITY 297 mosm/kg (275-300); CALCIUM 7.9 mg/dL (8.5-10.1); CARBON DIOXIDE 27.1 mmol/L (21.0-32.0); CHLORIDE - SERUM 104 mmol/L (98-107); CKMB 1.7 U/L (0.0-3.6); CREATINE KINASE 36 UL (21-232); GLUCOSE 169 mg/dL (74-106); MAGNESIUM - SERUM 2.1 mg/dL (1.8-2.4); SODIUM 141 mmol/L (136-145); TROPONIN-I 0.053 ng/mL (0.000-0.060); UREA NITROGEN 48 mg/dL (7-18); eGFR NON AFRICAN AMERICAN 12 mL/min (90-120)
--- NOTE | 2018-10-19 19:20 | NUR ---
RECEIVED CARE OF PT, ASSESSMENT PER FLOWSHEET. PT LETHARGIC, AROUSES TO VOICE, RESPONDS TO PAIN, SPEECH GARBLED AT TIMES, CAN ANSWER YES/NO QUESTIONS. HR PACED ON CM AT 55, PPP, SKIN ASSESSMENT PER FLOWSHEET, PALACIOS CATH PATENT. BILAT SOFT WRIST RESTRAINTS IN PLACE AND ADJUSTED FOR PT COMFORT, CALL LIGHT IN REACH, WILL MONITOR.
--- NOTE | 2018-10-19 21:20 | NUR ---
PT IN FOR VISITATION, ALL QUESTIONS ANSWERED AND UPDATE PROVIDED.
--- NOTE | 2018-10-19 23:20 | NUR ---
REASSESSMENT PER FLOWSHEET, NO ACUTE CHANGES NOTED AT THIS TIME. REMAINS PACED ON CM, POSITIONED FOR COMFORT SUPPORTED WITH PILLOWS.
[2018-10-20] VITALS (24 sets, daily range): BP systolic 90–135; BP diastolic 24–632
--- NOTE | 2018-10-20 01:50 | NUR ---
PT RESTING IN BED WITH EYES CLOSED, BREATHING EVEN AND UNLABORED, VSS.
--- NOTE | 2018-10-20 02:45 | NUR ---
REASSESSMENT PER FLOWSHEET, NO ACUTE CHANGES NOTED AT THIS TIME. PT REMAINS PACED ON MONITOR, AROUSES EASILY TO VOICE, VSS.
[2018-10-20 04:20] LABS: HEMATOCRIT 34.4 % (42.0-54.0); HEMOGLOBIN 10.5 g/dL (13.5-17.5); MCHC 30.5 g/dL (31.0-37.0); MCV 91.7 fL (80.0-100.0); MEAN PLATELET VOLUME 12.1 fL (7.4-10.4); PLATELET COUNT 217 10x3/uL (130-400); RBC 3.75 10x6/uL (4.20-6.10); RDW 17.1 % (11.5-14.5)
[2018-10-20 04:21] LABS: WBC 17.9 10x3/uL (4.8-10.8)
[2018-10-20 04:35] LABS: CALCIUM 8.2 mg/dL (8.5-10.1); CARBON DIOXIDE 26.9 mmol/L (21.0-32.0); CREATININE - SERUM 5.2 mg/dL (0.6-1.3); POTASSIUM - SERUM 3.9 mmol/L (3.5-5.1)
[2018-10-20 05:07] LABS: EOSINOPHILS 5 % (0-7); LYMPHOCYTES 9 % (15-50); MONOCYTES 10 % (2-11); NEUTROPHILS 73 % (40-80)
[2018-10-20 05:08] LABS: PLATELET ESTIMATE NORMAL
[2018-10-20 05:15] LABS: HEPATITIS BE ANTIBODY Negative (Negative)
--- NOTE | 2018-10-20 05:27 | NUR ---
PT RESTING IN BED WITH EYES CLOSED, VSS, AM LABS REVIEWED-NOTHING NOTED TO TREAT PER ELECTROLYTE PROTOCOL.
--- NOTE | 2018-10-20 08:00 | NUR ---
RIGHT UPPER ARM PIV IS NOT PATENT, THERE IS ALSO 3RD SPACE EDEMA SURROUNDING PIV, SHOWED HAT MODEL THIS AREA, REMOVED PIV, HAT MODEL OK USE OF HEMOSPLIT BLUE PORT.
[2018-10-20 08:16] LABS: HEPATITIS BE ANTIGEN Negative (Negative)
--- NOTE | 2018-10-20 12:17 | NUR ---
WILL GIVE SCOPOLOMINE WHEN AVAILABLE FROM Rx
--- NOTE | 2018-10-20 21:30 | NUR ---
PT IN FOR VISITATION, UPDATE PROVIDED, AND ALL QUESTIONS ANSWERED.
[2018-10-21] VITALS (24 sets, daily range): BP systolic 91–140; BP diastolic 22–81
[2018-10-21 04:16] LABS: ANION GAP 15.1 mmol/L (8-16); CALCIUM 7.9 mg/dL (8.5-10.1); CARBON DIOXIDE 25.3 mmol/L (21.0-32.0); CREATININE - SERUM 4.7 mg/dL (0.6-1.3); POTASSIUM - SERUM 4.4 mmol/L (3.5-5.1)
[2018-10-21 04:23] LABS: BASOPHILS 0.1 % (0-2); EOSINOPHILS 1.2 % (0-7); HEMATOCRIT 34.4 % (42.0-54.0); HEMOGLOBIN 10.4 g/dL (13.5-17.5); IMMATURE GRANULOCYTES 1.6 % (0-5); LYMPHOCYTES 5.5 % (15-50); MCH 28.1 pg (26.0-34.0); MCHC 30.2 g/dL (31.0-37.0); MEAN PLATELET VOLUME 12.3 fL (7.4-10.4); MONOCYTES 11.5 % (2-11); NEUTROPHILS 80.1 % (40-80); PLATELET COUNT 219 10x3/uL (130-400); RDW 17.3 % (11.5-14.5); WBC 22.2 10x3/uL (4.8-10.8)
--- NOTE | 2018-10-21 07:30 | NUR ---
SHIFT ASSESSMENT COMPLETE, PT IS CONFUSED LYING IN BED, ALL PPP, VSS, WILL CON'T TO MONITOR
[2018-10-21 08:21] LABS: APPEARANCE CLEAR (CLEAR); BACTERIA MANY /hpf (NONE SEEN); BILIRUBIN NEGATIVE (NEGATIVE); COLOR YELLOW (YELLOW); EPITHELIAL CELLS 0-5 /hpf (0-5); GLUCOSE NEGATIVE (NEGATIVE); KETONE NEGATIVE (NEGATIVE); NITRITE NEGATIVE (NEGATIVE); PROTEIN 1+ mg/dL (NEGATIVE)
[2018-10-21 08:22] LABS: AMORPHOUS SEDIMENT <1+ /lpf (NONE SEEN)
--- NOTE | 2018-10-21 11:20 | NUR ---
REASSESSMENT COMPLETE, NO CHANGES NOTED, WILL CON'T TO MONITOR
--- NOTE | 2018-10-21 15:20 | NUR ---
REASSESSMENT COMPLETE, NO CHANGES NOTED, WILL CON'T MONITOR
--- NOTE | 2018-10-21 17:03 | NUR ---
FAMILY AT BEDSIDE, UPDATE GIVEN
[2018-10-22] VITALS (23 sets, daily range): BP systolic 93–183; BP diastolic 23–105
--- NOTE | 2018-10-22 03:00 | NUR ---
10/22/18-030 RE-ASSESSMENT HAD NO CHANGES FROM PREVIOUS RE-ASSESSMENT AT 2300 ON 10/21/18.
[2018-10-22 07:21] LABS: BASOPHILS 0.3 % (0-2); EOSINOPHILS 6.9 % (0-7); HEMATOCRIT 32.5 % (42.0-54.0); HEMOGLOBIN 10.1 g/dL (13.5-17.5); IMMATURE GRANULOCYTES 1.5 % (0-5); LYMPHOCYTES 8.9 % (15-50); MCH 28.5 pg (26.0-34.0); MCHC 31.1 g/dL (31.0-37.0); MCV 91.5 fL (80.0-100.0); MEAN PLATELET VOLUME 11.7 fL (7.4-10.4); MONOCYTES 9.3 % (2-11); NEUTROPHILS 73.1 % (40-80); PLATELET COUNT 213 10x3/uL (130-400); RBC 3.55 10x6/uL (4.20-6.10); RDW 17.6 % (11.5-14.5); WBC 16.9 10x3/uL (4.8-10.8)
[2018-10-22 07:25] LABS: ANION GAP 14.2 mmol/L (8-16); CARBON DIOXIDE 27.3 mmol/L (21.0-32.0); CREATININE - SERUM 5.5 mg/dL (0.6-1.3)
[2018-10-22 07:26] LABS: POTASSIUM - SERUM 3.5 mmol/L (3.5-5.1)
--- NOTE | 2018-10-22 10:07 | NUR ---
Nutrition follow-up: Diet: Renal mechanical soft with thin liquids PO intake continues to be poor; reports he ate some pudding this morning Wt: 291# Labs reviewed. Pt with edema noted; confused per nursing No BM Will need to begin nutrition support if po intake remains poor and it's medically feasible. RDN following.
--- NOTE | 2018-10-22 15:20 | NUR ---
OT NOTE: PT HANGING HALF WAY OFF OF BED. SUPINE TO SIT WITH MOD ASSIST; STATIC SITTING WITH OCCASSSIONAL ASSIST FOR BALANCE; GROSS MOTOR COORDINATION TASKS. UE AROM EXS. YURI FERNANDO,OTR/L
[2018-10-23] VITALS (22 sets, daily range): BP systolic 81–157; BP diastolic 28–125
--- NOTE | 2018-10-23 01:20 | NUR ---
0012-PATIENT COMPLAINING OF SEVERE PAIN AND STATES "IT FEELS LIKE LEFT LEG IS IN BETWEEN A ICE VICE AND HE NEEDS TO CRAWL AWAY FROM LEG". OXY IR GIVEN PER MD ORDER PO. 0045-PATIENT STILL COMPLAINING OF PAIN IN THE LEFT LEG. BOLUS GIVEN OF MORPHINE TRAFFIC CLERK OF [facility] PER MD ORDER FOR BREAKTHROUGH PAIN. 0124-PATIENT SLEEPING AT THIS TIME. CALL LIGHT WIHTIN REACH, BED IN LOW POSITION.
[2018-10-23 06:13] LABS: BASOPHILS 0.5 % (0-2); EOSINOPHILS 6.9 % (0-7); HEMATOCRIT 35.2 % (42.0-54.0); HEMOGLOBIN 10.7 g/dL (13.5-17.5); IMMATURE GRANULOCYTES 1.8 % (0-5); LYMPHOCYTES 9.9 % (15-50); MCH 28.2 pg (26.0-34.0); MCHC 30.4 g/dL (31.0-37.0); MCV 92.9 fL (80.0-100.0); MEAN PLATELET VOLUME 12.3 fL (7.4-10.4); MONOCYTES 10.1 % (2-11); NEUTROPHILS 70.8 % (40-80); PLATELET COUNT 226 10x3/uL (130-400); RBC 3.79 10x6/uL (4.20-6.10); RDW 18.1 % (11.5-14.5); WBC 17.5 10x3/uL (4.8-10.8)
[2018-10-23 06:18] LABS: ANION GAP 15.7 mmol/L (8-16); CALCIUM 8.1 mg/dL (8.5-10.1); CREATININE - SERUM 5.3 mg/dL (0.6-1.3); POTASSIUM - SERUM 3.7 mmol/L (3.5-5.1)
--- NOTE | 2018-10-23 07:30 | NUR ---
REPORT RECIEVED, SHIFT ASSESSMENT COMPLETE, PT IS CONFUSED LYING IN BED, ALL PPP, VSS, WILL CON'T TO MONITOR
--- NOTE | 2018-10-23 09:00 | NUR ---
FAMILY AT BEDSIDE, UPDATE GIVEN, WILL CON'T TO MONITOR
--- NOTE | 2018-10-23 10:57 | NUR ---
Rehab Note- Continue to follow at this time. Thank you for this referral! Tiara Carpenter RN CLinical Liaison, [facility] Rehab
--- NOTE | 2018-10-23 11:15 | NUR ---
REASSESSMENT COMPLETE, NO CHANGES NOTED, WILL CON'T TO MONITOR
--- NOTE | 2018-10-23 13:15 | NUR ---
FAMILY AT BEDSIDE, UPDATE GIVEN
--- NOTE | 2018-10-23 15:15 | NUR ---
PT RESTING COMFORTABLY AT THIS TIME, WILL CON'T TO MONITOR
--- NOTE | 2018-10-23 16:58 | NUR ---
FAMILY AT BEDSIDE, UPDATE GIVEN
[2018-10-24] VITALS (24 sets, daily range): BP systolic 76–160; BP diastolic 30–100
[2018-10-24 04:19] LABS: BASOPHILS 0.3 % (0-2); EOSINOPHILS 8.1 % (0-7); HEMATOCRIT 32.8 % (42.0-54.0); HEMOGLOBIN 10.1 g/dL (13.5-17.5); IMMATURE GRANULOCYTES 1.7 % (0-5); LYMPHOCYTES 9.8 % (15-50); MCH 28.4 pg (26.0-34.0); MCHC 30.8 g/dL (31.0-37.0); MCV 92.1 fL (80.0-100.0); MONOCYTES 13.9 % (2-11); NEUTROPHILS 66.2 % (40-80); PLATELET COUNT 187 10x3/uL (130-400); RBC 3.56 10x6/uL (4.20-6.10); RDW 18.3 % (11.5-14.5); WBC 14.3 10x3/uL (4.8-10.8)
[2018-10-24 04:33] LABS: ANION GAP 12.5 mmol/L (8-16); CALCIUM 7.6 mg/dL (8.5-10.1); CARBON DIOXIDE 27.8 mmol/L (21.0-32.0); CREATININE - SERUM 4.3 mg/dL (0.6-1.3); POTASSIUM - SERUM 3.3 mmol/L (3.5-5.1)
--- NOTE | 2018-10-24 07:10 | NUR ---
REPORT RECIEVED, SHIFT ASSESSMENT COMPLETE, PT IS CONFUSED LYING IN BED, ALL PPP, VSS, CALL LIGHT IN REACH
--- NOTE | 2018-10-24 09:30 | NUR ---
FAMILY AT BEDSIDE, UPDATE GIVEN
--- NOTE | 2018-10-24 10:30 | NUR ---
PT UPTO CHAIR AT THIS TIME PER PT, PT TOLERATED WELL
--- NOTE | 2018-10-24 10:35 | NUR ---
Nutrition follow-up: Pt s/p hemicolectomy Diet: Renal mechanical soft with thin liquids No po intake charted Nursing reports pt with confusion and weak Labs reviewed Wt: 292# Recommend starting nutrition support (NGT vs PEG tube) due to pt with poor po intake at this time. RDN following.
--- NOTE | 2018-10-24 13:06 | NUR ---
OT NOTE: IN AM, PT WAS MORE ALERT AND LESS CONFUSED. FAMILY MEMBER AT BEDSIDE. MOD ASSIST WITH SUPINE TO SIT; SIT TO STAND WITH USE OF GAIT BELT, WALKER, IV, AND MOD ASSIST X 2; ABLE TO AMB A FEW STEPS FROM BED TO CHAIR WITH MAX VERBAL AND TACTILE CUES FOR WALKER MGMT AND BODY POSITIONING. UE EXS WHILE IN CHAIR..PT FATIGUED QUICKLY..MOD REST BREAKS REQUIRED. PT SEEN AGAIN IN PM. MAX ASSIST X 2 FOR SIT TO STAND FROM CHAIR LEVEL. ATTEMPTED 3 TIMES TO TAKE STEPS BUT HAD TO SIT DOWN. ON 4TH ATTEMPT, WITH USE OF WALKER AND GAIT BELT, ABLE TO STAND AND TAKE STEPS BACK TO BED WITH MAX ASSIST; MAX ASSIST WITH BED MOB BACK TO BED. PT WAS ABLE TO EAT ALL OF LUNCH WITH SET UP OF TRAY. ABLE TO MANAGE UTENSILS WITH ONLY MINIMAL DIFFICULTY. YURI FERNANDO, OTR/L
--- NOTE | 2018-10-24 13:15 | NUR ---
PT BACK TO BED AT THIS TIME PER PT
--- NOTE | 2018-10-24 15:15 | NUR ---
REASSESSMENT COMPLETE, ON CHANGES NOTED, WILL CON'T TO MONITOR
--- NOTE | 2018-10-24 17:16 | NUR ---
AT BEDSIDE, UPDATE GIVEN, WILL CON'T TO MONITOR
--- NOTE | 2018-10-24 18:11 | NUR ---
Dialysis Coordinator: Patient started on HD this admission. 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 Continuing to monitor. No orders regarding OPHD needs. Will continue to monitor for future needs. MILAGROS ALCARAZ.
--- NOTE | 2018-10-24 19:48 | NUR ---
REPORT RECEIVED. PT WITH EYES CLOSED AND CHEST RISING. AWAKENS TO VERBAL STIMULI. HR 54, BP 135/44. PT ON ROOM AIR 94%. DENIES PAIN. ASSESSMENT COMPLETED, SEE FLOW SHEET. WILL CONTINUE TO OBSERVE. CALL LIGHT IN REACH.
--- NOTE | 2018-10-24 20:30 | NUR ---
IN AT BEDSIDE FOR A FEW MINUTES AND WITH PT RESTING SHE DECIDED TO LET HIM AND LEFT UNIT.
--- NOTE | 2018-10-24 21:22 | NUR ---
PT RECEIVED MEDICATIONS PER NOV. PT GIVEN 8 UNITS FOR FSBS 154. WITH MIRALAX IN ORANGE JUICE. PT DENIES PAIN. PT RETURNED TO SLEEPING. WILL CONTINUE TO OBSERVE
--- NOTE | 2018-10-24 23:05 | NUR ---
REASSESSMENT COMPLETED, SEE FLOW SHEET. NO CHANGES NOTED. WILL CONTINUE TO OBSERVE.
[2018-10-25] VITALS (24 sets, daily range): BP systolic 71–136; BP diastolic 32–78
--- NOTE | 2018-10-25 02:04 | NUR ---
PT WITH EYES CLOSED AND CHEST RISING. NO S/S OF DISTRESS. AWAKENS TO VERBAL STIMULI. WILL CONTINUE TO OBSERVE.
--- NOTE | 2018-10-25 03:45 | NUR ---
REASSESSMENT COMPLETED, SEE FLOW SHEET. CVP 10. PT ABLE TO SLEEP BUT EASILY AWOKEN. SPO2 MAINTAINS 95% OR GREATER ON ROOM AIR. DRESSING INTACT NO NEED FOR REINFORCEMENT AT THIS TIME. WILL CONTINUE TO OBSERVE.
[2018-10-25 04:37] LABS: BASOPHILS 0.6 % (0-2); HEMATOCRIT 32.8 % (42.0-54.0); HEMOGLOBIN 10.2 g/dL (13.5-17.5); IMMATURE GRANULOCYTES 1.9 % (0-5); LYMPHOCYTES 10.9 % (15-50); MCH 28.7 pg (26.0-34.0); MCHC 31.1 g/dL (31.0-37.0); MCV 92.1 fL (80.0-100.0); MEAN PLATELET VOLUME 11.9 fL (7.4-10.4); MONOCYTES 13.3 % (2-11); NEUTROPHILS 67.3 % (40-80); PLATELET COUNT 169 10x3/uL (130-400); RBC 3.56 10x6/uL (4.20-6.10); RDW 18.7 % (11.5-14.5); WBC 12.4 10x3/uL (4.8-10.8)
[2018-10-25 04:53] LABS: ANION GAP 14.8 mmol/L (8-16); CALCIUM 7.9 mg/dL (8.5-10.1); CARBON DIOXIDE 26.5 mmol/L (21.0-32.0); POTASSIUM - SERUM 3.3 mmol/L (3.5-5.1)
--- NOTE | 2018-10-25 04:56 | NUR ---
PT WATCHING TV. NO COMPLAINTS OF EXCESS PAIN. PT IS USING BENEFITS CONSULTING ANALYST WITHOUT REMINDING. BLOOD DRAWN VIA CVL WITHOUT DIFFICULTY. WILL CONTINUE TO OBSERVE
[2018-10-25 04:59] LABS: CREATININE - SERUM 5.7 mg/dL (0.6-1.3)
--- NOTE | 2018-10-25 06:33 | NUR ---
POTASSIUM CHLORIDE 10MEQ IV STARTED FIRST OF FOUR FOR K LEVEL OF 3.3. PER ELECTROLYTE PROTOCOL. WILL CONTINUE TO OBSERVE
--- NOTE | 2018-10-25 13:10 | NUR ---
0700 ASSUMED CARE OF PATIENT ASSESSMENT COMPLETE
--- NOTE | 2018-10-25 13:11 | NUR ---
1200 AM MEEDS GIVEN NO C/O PAIN SPOUSE REMAINS AT BEDSIDE
--- NOTE | 2018-10-25 13:12 | NUR ---
1100 UP IN CHAIR PER PHYSICAL THERAPY SPOUSE REMAINS AT SIDE RENAL DIET TRAY SERVED
--- NOTE | 2018-10-25 13:19 | NUR ---
1315 PT TO ASSIST PATIENT BACK TO BED
--- NOTE | 2018-10-25 15:46 | NUR ---
OT NOTE: ASSISTED PT BACK TO BED; MOD ASSIST X 2 FOR TRANSFER WITH USE OF RW. CONTINUED CUES FOR WALKER MGMT; SIT TO SUPINE WITH MAX ASSIST. ABLE TO STAY UP IN CHAIR FOR GREATER THAN 2 HRS TODAY. FEEDING WITH SET UP OF TRAY WHILE UP IN CHAIR; ABLE TO WASH HANDS AND FACE WITH CLOTH AND SET UP. POSITIONED PT IN BED WITH HEEL PROTECTORS AND ON SIDE TO PREVENT SKIN BREAKDOWN. YURI FERNANDO, OTR/L
--- NOTE | 2018-10-25 18:07 | NUR ---
1500 WENT HOME RESTING QUIETLY
--- NOTE | 2018-10-25 18:09 | NUR ---
1700 DISLYSIS AT BEDSIDE SETTING UP
--- NOTE | 2018-10-25 19:14 | NUR ---
REPORT RECEIVED, CARE ASSUMED. INITIAL ASSESSMENT COMPLETED, SEE FLOWSHEET. PT IS RESTING IN BED WITH EYES CLOSED AT THIS TIME. DIALYSIS NURSE IS AT BEDSIDE. VSS. NO SIGNS OF ACUTE DISTRESS. WILL CONTINUE TO MONITOR.
--- NOTE | 2018-10-25 21:14 | NUR ---
PT IS RESTING IN BED WITH EYES CLOSED AT THIS TIME. NO SIGNS OF ACUTE DISTRESS. WILL CONTINUE TO MONITOR.
--- NOTE | 2018-10-25 23:05 | NUR ---
REASSESSMENT COMPLETED, SEE FLOWSHEET. NO ACUTE CHANGES NOTED. PT IS RESTING IN BED WITH EYES CLOSED. NO SIGNS OF ACUTE DISTRESS. WILL CONTINUE TO MONITOR.
[2018-10-26] VITALS (24 sets, daily range): BP systolic 89–168; BP diastolic 29–114
--- NOTE | 2018-10-26 01:14 | NUR ---
PT IS RESTING IN BED WITH EYES CLOSED. NO SIGNS OF ACUTE DISTRESS. WILL CONTINUE TO MONITOR.
--- NOTE | 2018-10-26 03:15 | NUR ---
REASSESSMENT COMPLETED, SEE FLOWSHEET. NO ACUTE CHANGES NOTED. PT IS RESTING IN BED WITH EYES CLOSED. NO SIGNS OF ACUTE DISTRESS. WILL CONTINUE TO MONITOR.
[2018-10-26 04:48] LABS: BASOPHILS 0.6 % (0-2); EOSINOPHILS 4.8 % (0-7); HEMATOCRIT 35.4 % (42.0-54.0); HEMOGLOBIN 10.8 g/dL (13.5-17.5); IMMATURE GRANULOCYTES 1.7 % (0-5); LYMPHOCYTES 10.5 % (15-50); MCH 28.4 pg (26.0-34.0); MCHC 30.5 g/dL (31.0-37.0); MCV 93.2 fL (80.0-100.0); MEAN PLATELET VOLUME 12.6 fL (7.4-10.4); MONOCYTES 11.3 % (2-11); NEUTROPHILS 71.1 % (40-80); PLATELET COUNT 135 10x3/uL (130-400); RDW 18.9 % (11.5-14.5); WBC 9.8 10x3/uL (4.8-10.8)
[2018-10-26 04:56] LABS: ANION GAP 14.2 mmol/L (8-16); CALCIUM 7.6 mg/dL (8.5-10.1); CARBON DIOXIDE 26.1 mmol/L (21.0-32.0); CREATININE - SERUM 4.7 mg/dL (0.6-1.3); POTASSIUM - SERUM 3.3 mmol/L (3.5-5.1)
--- NOTE | 2018-10-26 05:15 | NUR ---
PT RESTING IN BED WITH EYES CLOSED. PT WAS INCONTINENT OF BM, PT CLEANED AND BEDDING CHANGED. NO SIGNS OF ACUTE DISTRESS. WILL CONTINUE TO MONITOR.
--- NOTE | 2018-10-26 14:32 | NUR ---
0700 AWAKE ALERT SERVED BREAKFAST ASSESSMENT COMPLETE
--- NOTE | 2018-10-26 14:35 | NUR ---
0900 SPOUSE ASSISTING PATIENT WITH BREAKFAST APPETITE FAIR
--- NOTE | 2018-10-26 14:39 | NUR ---
1100 ASSISTED UP ON BEDPAN LARGE BM NOTED
--- NOTE | 2018-10-26 15:10 | NUR ---
1112 UP TO RECLINER CHAIR WITH PT TO ASSIST
--- NOTE | 2018-10-26 15:11 | NUR ---
1500 GAVE COMPLETE BED BATH LINENS CHANGED
--- NOTE | 2018-10-26 15:11 | NUR ---
1313 PHYOSICAL THERAPY ASSISTED PATIENT BACK TO BED
--- NOTE | 2018-10-26 19:35 | NUR ---
RECEIVED PATIENT CARE - SHIFT ASSESSMENT COMPLETED. PT AWAKENED TO VOICE. AAOX2 - FOLLOWS COMMANDS, UNRESTRAINED. SPEECH CLEAR, ASKING FOR . INFORMED PATIENT SHOULD BE IN DURING VISITNG HOURS. VSS CPOC
--- NOTE | 2018-10-26 19:36 | NUR ---
1700 ASSISTED WITH ADA DIET APPETITE GOOD
--- NOTE | 2018-10-26 21:32 | NUR ---
HS MEDICATIONS RECEIVED. PT AAO X3 - AT BEDSIDE. VSS CPOC
--- NOTE | 2018-10-26 23:33 | NUR ---
REASSESSMENT COMPLETED - SEE FLOWSHEET PT TAKING CUFF AND LEADS OFF, ATTEMPTED TO REORIENT, NO BASELINE ORIENTATION CHANGE. ANSWERS QUESTIONS APPROPRIATELY, FOLLOW COMMANDS. PATIENT IS NOT SLEEPING AND PICKING AND SCRATCHING AT HIS SKIN. VSS CPOC
[2018-10-27] VITALS (27 sets, daily range): BP systolic 99–170; BP diastolic 50–88
--- NOTE | 2018-10-27 01:10 | NUR ---
REORIENTED PATIENT, REAPPLIED ICU MONITORS. VSS CPOC
[2018-10-27 02:46] LABS: BASOPHILS 0.4 % (0-2); EOSINOPHILS 6.2 % (0-7); HEMATOCRIT 34.7 % (42.0-54.0); HEMOGLOBIN 10.4 g/dL (13.5-17.5); IMMATURE GRANULOCYTES 2.1 % (0-5); MCH 28.3 pg (26.0-34.0); MCV 94.6 fL (80.0-100.0); MEAN PLATELET VOLUME 11.6 fL (7.4-10.4); MONOCYTES 13.2 % (2-11); NEUTROPHILS 64.1 % (40-80); PLATELET COUNT 144 10x3/uL (130-400); RBC 3.67 10x6/uL (4.20-6.10); RDW 19.2 % (11.5-14.5); WBC 11.6 10x3/uL (4.8-10.8)
[2018-10-27 02:59] LABS: ANION GAP 14.5 mmol/L (8-16); CARBON DIOXIDE 25.7 mmol/L (21.0-32.0); PHOSPHOROUS 3.3 mg/dL (2.5-4.9); POTASSIUM - SERUM 3.2 mmol/L (3.5-5.1)
[2018-10-27 03:02] LABS: CREATININE - SERUM 5.9 mg/dL (0.6-1.3)
--- NOTE | 2018-10-27 03:02 | NUR ---
REASSESSMENT COMPLETED SEE FLOWSHEET
--- NOTE | 2018-10-27 05:24 | NUR ---
PT REQUESTING SHORTS AT THIS TIME, WANTS ME TO ASK HIS TO BRING SHOES
--- NOTE | 2018-10-27 07:00 | NUR ---
REPORT RECEIVED. INITIAL ASSESSMENT COMPLETE. PT AWAKE FOLLOWS COMMANDS. ORIENTED TO PLACE PERSON BUT CONFUSED ABOUT TIME AND SITUATION. REORIENTED. HE DOES PICK AND FIDGET HAS PULLED EKG LEADS OFF SEVERAL TIMES. CM IN PLACE ALARMS ON AND AUDIBLE PACED RHYTHM. RESP EVEN AND NONLABORED ON ROOM AIR O2 SATS 95%. PT ON FIRST STEP AIR MATTRESS. BED LOW POSITION SIDE RAILS UP TIMES 3 FOR SAFETY AND BED MOBILITY. SEE ASSESSMENT AND FLOWSHEETS.
--- NOTE | 2018-10-27 08:00 | NUR ---
PARAM NOVA INSTRUCTOR TRAINER CANINE SERVICE WITH RENAL ROUNDING.
--- NOTE | 2018-10-27 08:00 | NUR ---
ASKED PARAM NOVA APN WITH RENAL ABOUT INSTRUCTIONS FOR HEPLOCK OF HEMOSPLIT. AT BEDSIDE THE HEMOSPLIT WAS VISUALIZED AND BLUE PORT HAS 1.9 CC WRITTEN SO SHE SAID THE USE THE HEPARIN 1000UNIT/ML BUT TO HEPLOCK WITH 1.9 CC.
--- NOTE | 2018-10-27 08:53 | NUR ---
PHYSICAL THERAPIST HERE TO GET PT UP TO CHAIR. ALSO HERE FOR VISITATION
--- NOTE | 2018-10-27 09:00 | NUR ---
PT UP TO CHAIR. PTS AT ASSISTING WITH BREAKFAST. SWALLOWS WITHOUT DIFFICULTY. NO S/S OF DIFFICULTY WITH MEAL. VSS NO DISTRESS NOTED DENIES PAIN
--- NOTE | 2018-10-27 09:00 | NUR ---
SYNTHROID DUE AT 0900 NOT IN PYXIS OR PTS CASSETTE. CALLED PHARMACY SPOKE WITH DOMINIC HE STATED HE WOULD GET ONE UP HERE
--- NOTE | 2018-10-27 10:00 | NUR ---
PTS SHAVING AND ASSISTING PT WITH BATH, WASHING HAIR COMPLETE LINEN CHANGE. VSS NO DISTRESS NOTED AT THIS TIME. WILL CONTINUE TO MONITOR.
--- NOTE | 2018-10-27 11:15 | NUR ---
PT HERE PT BACK TO BED MODERATE LIQUID BROWN BM ASSISTS WITH COMPLETE BED BATH LINEN CHANGE.
--- NOTE | 2018-10-27 11:30 | NUR ---
DR SALOME RUBIO SPEAKING WITH PT AND .
--- NOTE | 2018-10-27 14:50 | NUR ---
DIALYSIS NURSE HERE TREATMENT STARTED
--- NOTE | 2018-10-27 15:00 | NUR ---
REASSESSMENT MADE SEE ASSESSMENT PT RESTING WITH EYES CLOSED DIALYSIS CONTINUES. VSS AT THIS TIME NO PAIN OR S/S OF DISTRESS NOTED
--- NOTE | 2018-10-27 15:30 | NUR ---
DR ANANDA RUBIO
--- NOTE | 2018-10-27 17:35 | NUR ---
DIALYSIS COMPLETE 1 LITER PULLED OFF.
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
--- NOTE | 2018-10-27 21:20 | NUR ---
AT BEDSIDE, VSS, HS MEDS GIVEN CPOC
--- NOTE | 2018-10-27 23:06 | NUR ---
REASSESSMENT COMPLETED, PT SLIGHTLY CONFUSED, ASLEEP BUT EASY TO ROUSE. VSS CPOC
[2018-10-28] VITALS (22 sets, daily range): BP systolic 91–140; BP diastolic 31–82
--- NOTE | 2018-10-28 02:00 | NUR ---
HEARD BED ALARMING AND PATIENT CALL OUT, FOUND PATIENT IN THE FLOOR. ASSESSMENT COMPLETED AT THIS TIME. NO ACUTE DISTRESS, VSS
--- NOTE | 2018-10-28 02:09 | NUR ---
PAGED DR ANDRES REGARDING PATIENT FALL
--- NOTE | 2018-10-28 02:10 | NUR ---
RECEIVED CALL BACK - DOCTOR ORDERED XRAY FOR ANY HURT OR INJURED AREAS. PT STATES HE IS NOT IN ANY PAIN AT THIS TIME. WILL CONTINUE TO MONITOR PAIN AND MENTAL STATUS FREQUENTLY
[2018-10-28 03:20] LABS: BASOPHILS 0.6 % (0-2); EOSINOPHILS 5.1 % (0-7); HEMATOCRIT 36.1 % (42.0-54.0); HEMOGLOBIN 10.9 g/dL (13.5-17.5); IMMATURE GRANULOCYTES 2.1 % (0-5); LYMPHOCYTES 9.7 % (15-50); MCH 28.5 pg (26.0-34.0); MCHC 30.2 g/dL (31.0-37.0); MCV 94.5 fL (80.0-100.0); MONOCYTES 13.6 % (2-11); NEUTROPHILS 68.9 % (40-80); PLATELET COUNT 132 10x3/uL (130-400); RBC 3.82 10x6/uL (4.20-6.10); RDW 19.3 % (11.5-14.5); WBC 13.1 10x3/uL (4.8-10.8)
[2018-10-28 03:32] LABS: CALCIUM 8.3 mg/dL (8.5-10.1); CARBON DIOXIDE 25.3 mmol/L (21.0-32.0)
[2018-10-28 03:34] LABS: POTASSIUM - SERUM 4.3 mmol/L (3.5-5.1)
--- NOTE | 2018-10-28 04:49 | NUR ---
PT FALLING OUT OF BED AGAIN, AIR OVERLAY TURNED OFF AT THIS TIME FOR PATIENT SAFETY
--- NOTE | 2018-10-28 07:00 | NUR ---
REC'D CARE OF PT. PLEASANTLY CONFUSED.
--- NOTE | 2018-10-28 08:14 | NUR ---
NS INFSING AT 10CC PER HOUR.
--- NOTE | 2018-10-28 09:00 | NUR ---
REPOSITIONED FOR COMFORT. PULLED UP IN BED.
--- NOTE | 2018-10-28 09:48 | NUR ---
RIGHT SUBCLAVIAN HEMESPLIT. DO NOT KNOW WHEN IT WAS INPUTED.
--- NOTE | 2018-10-28 10:00 | NUR ---
OOB TO CHAIR WITH RUSTY CASILLAS
--- NOTE | 2018-10-28 12:53 | NUR ---
DAUGHTER UPSET OVER "BAD AIR MATTRESS" AND SAID THAT PT. WANTS BACK IN BED BUT SHE ISNT GOING TO LET US PUT HIM BACK TO BED UNTIL WE GET ANOTHER AIR MATTRESS. AND SHE WAS ABOUT READY TO "TAKE HIM OUT OF THIS HOSPITAL AND PUT HIM ELSE WHERE". I CALLED BAR [employer] AND SHE BROUGHT UP ANOTHER AIR MATTRESS AND I AM PUTTING IT ON BED. THIS IS THE FIRST INDICATION TO ME THAT SHE WANTED ANOTHER MATTRESS. PT. HAS BEEN UP TO CHAIR ALOT TODAY.
--- NOTE | 2018-10-28 13:15 | NUR ---
BACK TO BED VIA RUSTY HORTON
--- NOTE | 2018-10-28 13:15 | NUR ---
NEW AIR MATTRESS PUT ON BED. DAUGHTER BATHED PT. I PLACED NEW HEART SHAPE DRSG. ON BUTTOCK/COCCYX.
--- NOTE | 2018-10-28 14:27 | NUR ---
DR. BROOKS AT BEDSIDE.
--- NOTE | 2018-10-28 15:00 | NUR ---
REPOSITIONED FOR COMFORT. PULLED UP IN BED.
--- NOTE | 2018-10-28 17:53 | NUR ---
DAUGHTER AT BEDSIDE. ASSITING WITH DINNER TRAY.
--- NOTE | 2018-10-28 19:10 | NUR ---
RECEIVED PT CARE, SHIFT ASSESSMENT COMPLETED SEE FLOWSHEET. PT SLIGHTLY CONFUSED. ORIENTED TO PERSON AND PLACE. VSS CPOC
--- NOTE | 2018-10-28 23:10 | NUR ---
REASSESSMENT COMPLETED SEE FLOWSHEET - PT OXYGEN SATURATION IN LOW 80'S OXYGEN APPLIED AT THIS TIME 2L NC
[2018-10-29] VITALS (16 sets, daily range): BP systolic 87–167; BP diastolic 40–101
--- NOTE | 2018-10-29 00:37 | NUR ---
PT RESTING COMFORTABLY, NOTED RISE AND FALL OF CHEST, NO APPARANT DISTRESS NO ACUTE CHANGES CPOC
--- NOTE | 2018-10-29 02:07 | NUR ---
PT RESTING COMFORTABLY - EVEN RISE AND FALL OF CHEST. VSS CPOC
--- NOTE | 2018-10-29 02:54 | NUR ---
REASSESSMENT COMPLETED SEE FLOWSHEET. ORIENTED TO PERSON AND PLACE ONLY. SPEECH SLURRED.
[2018-10-29 04:12] LABS: BASOPHILS 0.5 % (0-2); EOSINOPHILS 6.9 % (0-7); HEMATOCRIT 33.6 % (42.0-54.0); HEMOGLOBIN 10.2 g/dL (13.5-17.5); IMMATURE GRANULOCYTES 2.4 % (0-5); LYMPHOCYTES 13.3 % (15-50); MCH 28.3 pg (26.0-34.0); MCHC 30.4 g/dL (31.0-37.0); MCV 93.1 fL (80.0-100.0); MEAN PLATELET VOLUME 11.8 fL (7.4-10.4); MONOCYTES 13.6 % (2-11); NEUTROPHILS 63.3 % (40-80); PLATELET COUNT 131 10x3/uL (130-400); RBC 3.61 10x6/uL (4.20-6.10); RDW 19.1 % (11.5-14.5); WBC 11.8 10x3/uL (4.8-10.8)
[2018-10-29 04:33] LABS: ANION GAP 17.5 mmol/L (8-16); CALCIUM 8.1 mg/dL (8.5-10.1); CARBON DIOXIDE 25.2 mmol/L (21.0-32.0); PHOSPHOROUS 4.3 mg/dL (2.5-4.9); POTASSIUM - SERUM 3.7 mmol/L (3.5-5.1)
--- NOTE | 2018-10-29 09:00 | NUR ---
NO DISTRESS NOTED SEE GRAPHIC --SPOUSE AT BS
--- NOTE | 2018-10-29 10:13 | NUR ---
Nutrition follow-up: Diet advanced to ada consistent CHO PO intake ~30% average of meals Labs reviewed +BM Pt out to floor soon Recommend liberlizing diet to regular as tolerated due to pts very poor po intake. RDN following.
--- NOTE | 2018-10-29 10:30 | NUR ---
UP IN CHAIR WITH PT----SEE PT NOTES
--- NOTE | 2018-10-29 16:10 | NUR ---
COCCYX: WE CONTINUE USING SANTYL UNTIL NECROTIC TISSUE IS REMOVED. BILATERAL HEELS HAVE BEEN PLACED IN HEEL ELEVATORS. WOUND CARE CONTINUES MONITORING.
--- NOTE | 2018-10-29 17:00 | NUR ---
SPOUSE AT BS-----NO COMPLAINTS VERBAL
--- NOTE | 2018-10-29 19:20 | NUR ---
PT RECEIVED WITH EYES OPEN WATCHING TV WITH AT BEDSIDE. NO NEEDS MADE KNOWN. PT WITH TRANSFER TO FLOOR ORDERS WHEN ROOM AVAILABLE AND PT, AWARE. VITAL SIGNS WNL. CALL LIGHT IN REACH. WILL CONTINUE TO OBSERVE.
--- NOTE | 2018-10-29 21:25 | NUR ---
LEFT UNIT, NO QUESTIONS NOTED AT THIS TIME. WILL CONTINUE TO OBSERVE.
--- NOTE | 2018-10-29 21:55 | NUR ---
PT WITH EYES OPEN WATCHING TV. FSBS 71 12OML ORANGE JUICE GIVEN WITH MIRALAX, PT TOLERATED WELL. DENIES PAIN. CALL LIGHT IN REACH. WILL CONTINUE TO OBSERVE.
--- NOTE | 2018-10-29 22:20 | NUR ---
CALL AND REQUEST THAT PT NOT BE TRANSFERRED UNTIL SHE IS ABLE TO BE HERE, DUE TO PT CONFUSION. REPORTED TO CHARGE NURSE OF REQUEST. WILL CONTINUE TO OBSERVE.
--- NOTE | 2018-10-29 23:15 | NUR ---
PT WATCHING TV, CONFUSED AT TIMES. EASILY REORIENTED. WILL CONTINUE TO OBSERVE.
--- NOTE | 2018-10-30 01:42 | NUR ---
PT CONTINUES TO WATCH TV, WITH CONFUSION NOTED. ASKS IF HE IS GOING TO BE ABLE TO WORK IN THE MORNING, REORIENTED TO PLACE AND PT STATES UNDERSTANDING. NO S/S OF DISTRESS. WILL CONTINUE TO OBSERVE.
[2018-10-30 03:00] VITALS: BP 138/47
--- NOTE | 2018-10-30 03:35 | NUR ---
PT WITH EYES OPEN AND VOICED NEED TO BM AND PLACED ON BEDPAN. REASSESSED AND PT STATES MORE TIME NEEDED. WILL CONTINUE TO OBSERVE.
--- NOTE | 2018-10-30 04:57 | NUR ---
PT WITHOUT BM, PT REMOVED FROM BEDPAN AND PULLED UP IN BED. NO CONCERNS NOTED. WILL CONTINUE TO OBSERVE.
[2018-10-30 06:55] LABS: BASOPHILS 0.5 % (0-2); HEMATOCRIT 32.6 % (42.0-54.0); IMMATURE GRANULOCYTES 2.1 % (0-5); LYMPHOCYTES 13.5 % (15-50); MCH 28.5 pg (26.0-34.0); MCHC 30.7 g/dL (31.0-37.0); MCV 92.9 fL (80.0-100.0); MEAN PLATELET VOLUME 12.1 fL (7.4-10.4); MONOCYTES 13.4 % (2-11); NEUTROPHILS 62.5 % (40-80); PLATELET COUNT 145 10x3/uL (130-400); RBC 3.51 10x6/uL (4.20-6.10); RDW 19.1 % (11.5-14.5); WBC 12.5 10x3/uL (4.8-10.8)
[2018-10-30 06:56] LABS: ANION GAP 16.8 mmol/L (8-16); CALCIUM 8.2 mg/dL (8.5-10.1); CARBON DIOXIDE 25.2 mmol/L (21.0-32.0)
[2018-10-30 07:00] VITALS: BP 107/69
--- NOTE | 2018-10-30 07:37 | NUR ---
PT USES BEDPAN AND WITH MEDIUM SOFT FORMED BM NOTED. PERICARE PROVIDED. PT ROLLS OVER WITH MODERATE ASSIST. ONCOMING NURSE AWARE.
[2018-10-30 08:00] VITALS: BP 134/78
--- NOTE | 2018-10-30 09:23 | MORECARE ---
CASE MANAGEMENT DISCHARGE SUMMARY PATIENT: KURT BRIGHT UNIT: [id number] ADM DATE: 10/05/18 AGE: 78 : 40 SEX: M ROOM/BED: D.2304 AUTHOR: KARY,DOC PHYSICIAN: REFERRING PHYSICIAN: ARISTEO MOYA MD DATE OF SERVICE: 10/30/18 Discharge Plan Patient Name: KURT BRIGHT Facility: [facility]:[place] : 1940 Planned Disposition: Inpatient Rehab Anticipated Discharge Date: Discharge Date: Expected LOS: Initial Reviewer: [email or web address] Initial Review Date: 10/08/2018 Generated: 10/30/18 10:23 am Comments DCP- Discharge Planning Updated by [id number]: Zeinab Brown on 10/30/18 8:[address] LATE ENTRY 10/29/18 @ 1530 CM spoke with Param in Inpatient Rehab she stated that patient isn't doing enough with PT to qualify him for inpatient. CM contacted Argentina Nguyen also to start arranging for outpatient hemodialysis. CM will continue to follow and assist as needed with discharge planning / needs. DCP- Discharge Planning Updated by [id number]: Federico Herman on 10/18/18 2:[address] Patient Name: KURT BRIGHT Encounter No: [id number] : 1940 Primary Insurance: MEDICARE A & B Anticipated DC Date: Planned Disposition: Inpatient Rehab External Planned Provider: [facility] DCP follow-up note: CM SPOKE TO PARAM OF INPATIENT REHAB, THEY PLAN TO ACCEPT PT WHEN MEDICALLY STABLE AND DOES NOT REQUIRE DAILY DIALYSIS. PT AND SPOUSE NOTIFIED, IN AGREEMENT WITH DISCHARGE TO INPATIENT REHAB. PT'S SPOUSE, CURT, ASKED CM TO CALL HER SON, JAMIE, AND ANSWER QUESTIONS. CM CALLED JAMIE WITH NUMBER PROVIDED BY MRS. BRIGHT, CM ANSWERED DISCHARGE PLANNING QUESTIONS REGARDING REHAB SERVICES, ADVISED BOTH JAMIE AND MRS. BRIGHT TO SPEAK TO THE DOCTOR OR NURSE REGARDING MEDICAL QUESTIONS. BOTH REPORTED UNDERSTANDING. NOTIFY [facility] WHEN PT IS NO LONGER NEEDING DAILY DIALYSIS SERVICES AND IS STABLE FOR DISCHARGE TO REHAB. Federico Herman, CASE MANAGEMENT DCP- Discharge Planning Updated by [id number]: Federico Herman on 10/15/18 1:[address] Patient Name: KURT BRIGHT Encounter No: [id number] : 1940 Primary Insurance: MEDICARE A & B Anticipated DC Date: Planned Disposition: Inpatient Rehab External Planned Provider: [facility] DCP follow-up note: CM RECEIVED ORDER FOR INPATIENT REHAB PRESCREENING. CM SPOKE TO PT AND SPOUSE IN ROOM. PT LETHARGIC DURING CM CONSULT VISIT. CM DISCUSSED INPATIENT REHAB PRESCREENING ORDER, PROVIDERS AND LOCATIONS OF INPATIENT REHAB. CM DISCUSSED REQUIREMENT OF ABILITY TO PARTICIPATE IN THREE HOURS OF PROGRESSIVE THERAPY. CM DISCUSSED [facility] REHAB SERVICES, LOCATIONS AND PROVIDERS. CM PROVIDED [facility] CHOICE LISTING. PT'S SPOUSE TEARFUL, DOES NOT WANT TO CONSIDER SENDING PT TO A [facility] FACILITY. SHE STATES SHE WOULD TAKE PT HOME FIRST. CM REVIEWED THERAPY NOTES, DISCUSSED WITH PT'S SPOUSE WHO STATES SHE WOULD JUST HAVE TO "TRY HER BEST TO TAKE CARE OF HIM AT HOME." PT'S SPOUSE WILL CONSIDER INPATIENT REHAB AT [place], WILL NOT CONSIDER [facility] FACILITY AT THIS TIME. CM PROVIDED AND DISCUSSED IMPORTANT MESSAGE FROM MEDICARE. PT'S SPOUSE ASKED CM TO CALL JAMIE BRIGHT, PT'S SON AT [phone], TO INFORM AND DISCUSS REHAB WITH HIM ALSO. CM CALLED JAMIE BRIGHT, , LEFT MESSAGE WITH CM CONTACT INFORMATION. CM PROVIDED PT'S SPOUSE WITH CM CONTACT INFORMATION. CM WAITING INPATIENT REHAB PRESCREENING AND ADMISSION DETERMINATION FROM [facility]. Federico Herman, CASE MANAGEMENT DCP- Discharge Planning Updated by [id number]: Zeinab Brown on 10/08/18 5:[address] Patient Name: KURT BRIGHT Admission Status: Elective Accout number: [id number] Admission Date: 10-05-2018 : 1940 Admission Diagnosis: Attending: ARISTEO MOYA Current LOS: 3 Anticipated DC Date: Planned Disposition: Home Primary Insurance: MEDICARE A & B Discharge Planning Comments: CM met with patient and spouse at bedside. Patient plans to return home and resume Home Health Care with [facility]. Denies any discharge needs at this time. CM will continue to follow and assist as needed with discharge planning / needs. Double Needle Stitcher: Zeinab Brown DCGARRYA - Discharge Planning Initial Assessment Updated by [id number]: Zeinab Stephanie on 10/08/18 6:50 pm * Is the patient Alert and Oriented? Yes * How many steps to enter\\exit or inside your home? 2 - ramp * PCP Viky * [facility] * Preadmission Environment Home with Family * ADLs Partial Dependent * Partial ADLs (Assistance needed) Ambulation Bathing Dressing Eating Medication Management Toileting Transfers * Other Equipment electric w/c , walker, hospital bed, 02 @2L PRN * List name and contact numbers for known caregivers / representatives who currently or will assist patient after discharge: Curt Bright - spouse - [phone] * Verbal permission to speak to the caregivers and representatives has been obtained from the patient. Yes * Community resources currently utilized Home Health * Please name any agencies selected above. [facility] * Additional services required to return to the preadmission environment? No * Can the patient safely return to the preadmission environment? Yes * Has this patient been hospitalized within the prior 30 days at any hospital? No Coverage Notice Reviewer: PUSHPA Herman Notice Issued Date-Time: 10/15/2018 13:00 Notice Type: Patient Choice Letter Notice Delivered To: Family Member Relationship to Patient: Spouse Loom Cleaner Name: CURT BRIGHT Delivery Method: HAND - Hand Delivered Jessica Days: Prior Verbal Notification: Recipient Understood Notice: Yes Recipient Signature: Yes Med Rec Note Co-signed by Attending: Coverage Notice Comment: SNF LISTING PROVIDER; SPOUSE REFUSED SNF PLACEMENT FOR PT. Reviewer: PUSHPA Herman Notice Issued Date-Time: 10/15/2018 13:00 Notice Type: IM Discharge Notice Notice Delivered To: Family Member Relationship to Patient: Spouse Loom Cleaner Name: CURT BRIGHT Delivery Method: HAND - Hand Delivered Jessica Days: Prior Verbal Notification: Recipient Understood Notice: Yes Recipient Signature: Yes Med Rec Note Co-signed by Attending: Coverage Notice Comment: Reviewer: PUSHPA Herman Notice Issued Date-Time: 10/18/2018 11:30 Notice Type: IM Discharge Notice Notice Delivered To: Family Member Relationship to Patient: Spouse Loom Cleaner Name: CURT BRIGHT Delivery Method: HAND - Hand Delivered Jessica Days: Prior Verbal Notification: Recipient Understood Notice: Yes Recipient Signature: Yes Med Rec Note Co-signed by Attending: Coverage Notice Comment: Last DP export: 10/18/18 2:12 p Patient Name: KURT BRIGHT Page [phone] at 0923 All edits/amendments must be made on the electronic document DICTATION DATE: 10/30/18922 BUILD AND DEPLOYMENT ENGINEER: NEEL 10/30/18922 RPT#: [id number] DC DATE: STATUS: ADM IN [facility] [address] [place] [address] END OF REPORT
--- NOTE | 2018-10-30 10:10 | NUR ---
0700 ASSESSMENT COMPLETE PATIENT AWAKE AND ALERT SPEECH CLEAR CONFUSED
--- NOTE | 2018-10-30 10:11 | NUR ---
0900 SPOUSE AT BEDSIDE ASSISTING WITH BREAKFAST APPETITE FAIR
--- NOTE | 2018-10-30 10:15 | NUR ---
0945 REPORT CALLED TO ETHEL
--- NOTE | 2018-10-30 10:17 | NUR ---
1010 DR OCHOA, FIELD REVIEWER CHANGING DRESSING ON HEELS
--- NOTE | 2018-10-30 11:14 | NUR ---
1050 TRANSFERRED PATIENT VIA BED TO [facility] KHAI DAVENPORT ACCEPTED PT.
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
[2018-10-30 12:04] VITALS: BP 99/63
--- NOTE | 2018-10-30 12:11 | NUR ---
OT NOTE: PT REMAINS CONFUSED. REQUIRED MAX ASSIST FOR BED MOB; MAX ASSIST FOR STATIC SITTING AND CONTINUALLY LEANING HARD TO THE LEFT SIDE; UNABLE TO MAINTAIN UPRIGHT POSTURE. MAX ASSIST FOR PERINEAL CARE..LARGE LIQUID BM. YURI FERNANDO, OTR/L
--- NOTE | 2018-10-30 15:43 | NUR ---
OT NOTE: PT COMPLETED SIMPLE HYGIENE WITH MOD A. PT COMPLETED BED MOBILITY TASKS WITH MAX A. THANK YOU, EULALIO MEYERS
[2018-10-30 17:24] VITALS: BP 116/59
--- NOTE | 2018-10-30 19:30 | NUR ---
PT RESTING IN BED. EYES OPEN. PT HAS SOME CONFUSION. NO SIGNS OF DISTRESS. BREATHING EVEN AND UNLABORED. IV SITE RT SUBCLAVIN TRIALYSIS. DRESSING COMING OFF. I REDRESSED IV SITE STERILE. REDNESS AT INSERTION SITE. GAP INBETWEEN PT SKIN AND TRIALYSIS CATH. REDNESS AROUND STICHES. WILL CONTINUE TO MONITOR. BOWEL SOUNDS ACTIVE. PALACIOS IN PLACE AND DRAINING. NO SIGNS OF INFECTION. NO LOWER LEG SWELLING. HEEL BOOTS PRESENT. DRESSING RT FOOT CLEAN DRY AND INTACT. WILL CONTINUE PLAN OF CARE. CALL LIGHT IN REACH. BED ALARM ON. BED LOWERED AND LOCKED BED RAILS UP X2. FAMILY AT BEDSIDE.
[2018-10-30 20:27] VITALS: BP 112/44
--- NOTE | 2018-10-30 21:30 | NUR ---
FSBS 189 8 UNITS OF INSULIN GIVEN PER SS.
[2018-10-31 00:11] VITALS: BP 116/58
--- NOTE | 2018-10-31 03:04 | NUR ---
EYES CLOSED RESPIRATIONS WITH EASE AND UNLABORED. AT BEDSIDE. SR UP X2 CALL LIGHT WITHIN REACH.
[2018-10-31 04:33] VITALS: BP 118/57
[2018-10-31 09:00] VITALS: BP 118/45
--- NOTE | 2018-10-31 10:16 | MORECARE ---
CASE MANAGEMENT DISCHARGE SUMMARY PATIENT: KURT BRIGHT UNIT: [id number] ADM DATE: 10/05/18 AGE: 78 : 40 SEX: M ROOM/BED: D.2230 AUTHOR: KARY,DOC PHYSICIAN: REFERRING PHYSICIAN: ARISTEO MOYA MD DATE OF SERVICE: 10/31/18 Discharge Plan Patient Name: KURT BRIGHT [facility] [facility] 1940 Planned Disposition: Inpatient Rehab Anticipated Discharge Date: Discharge Date: Expected LOS: Initial Reviewer: [id number] Initial Review Date: 10/08/2018 Generated: 10/31/18 11:16 am Comments DCP- Discharge Planning Updated by [id number]: Mai Lanza on 10/31/18 9:[address] I went to the room to visit with patient, he is in dialysis. I called Maral in inpatient rehab. Maral states they will reevaluate today for inpatient rehab since he is now on MWF dialysis schedule and may be able to accept today. CM will continue to follow and assist with discharge planning/needs. DCP- Discharge Planning Updated by [id number]: Zeinab Brown on 10/30/18 8:[address] LATE ENTRY 10/29/18 @ 1530 CM spoke with Param in Inpatient Rehab she stated that patient isn't doing enough with PT to qualify him for inpatient. CM contacted Argentina Nguyen also to start arranging for outpatient hemodialysis. CM will continue to follow and assist as needed with discharge planning / needs. DCP- Discharge Planning Updated by [id number]: Federico Herman on 10/18/18 2:[address] Patient Name: KURT BRIGHT Encounter No: [id number] : 1940 Primary Insurance: MEDICARE A & B Anticipated DC Date: Planned Disposition: Inpatient Rehab External Planned Provider: [facility] INPATIENT REHAB DCP follow-up note: CM SPOKE TO PARAM OF INPATIENT REHAB, THEY PLAN TO ACCEPT PT WHEN MEDICALLY STABLE AND DOES NOT REQUIRE DAILY DIALYSIS. PT AND SPOUSE NOTIFIED, IN AGREEMENT WITH DISCHARGE TO INPATIENT REHAB. PT'S SPOUSE, CURT, ASKED CM TO CALL HER SON, JAMIE, AND ANSWER QUESTIONS. CM CALLED JAMIE WITH NUMBER PROVIDED BY MRS. BRIGHT, CM ANSWERED DISCHARGE PLANNING QUESTIONS REGARDING REHAB SERVICES, ADVISED BOTH JAMIE AND MRS. BRIGHT TO SPEAK TO THE DOCTOR OR NURSE REGARDING MEDICAL QUESTIONS. BOTH REPORTED UNDERSTANDING. NOTIFY [facility] INPATIENT REHAB WHEN PT IS NO LONGER NEEDING DAILY DIALYSIS SERVICES AND IS STABLE FOR DISCHARGE TO REHAB. JAROCHO Blackburn DCP- Discharge Planning Updated by [id number]: Federico Herman on 10/15/18 1:[address] Patient Name: KURT BRIGHT Encounter No: [id number] : 1940 Primary Insurance: MEDICARE A & B Anticipated DC Date: Planned Disposition: Inpatient Rehab External Planned Provider: [facility] INPATIENT REH[facility] DCP follow-up note: CM RECEIVED ORDER FOR INPATIENT REHAB PRESCREENING. CM SPOKE TO PT AND SPOUSE IN ROOM. PT LETHARGIC DURING CM CONSULT VISIT. CM DISCUSSED INPATIENT REHAB PRESCREENING ORDER, PROVIDERS AND LOCATIONS OF INPATIENT REHAB. CM DISCUSSED REQUIREMENT OF ABILITY TO PARTICIPATE IN THREE HOURS OF PROGRESSIVE THERAPY. CM DISCUSSED HALFWAY REHAB SERVICES, LOCATIONS AND PROVIDERS. CM PROVIDED HALFWAY CHOICE LISTING. PT'S SPOUSE TEARFUL, DOES NOT WANT TO CONSIDER SENDING PT TO A HALFWAY FACILITY. SHE STATES SHE WOULD TAKE PT HOME FIRST. CM REVIEWED THERAPY NOTES, DISCUSSED WITH PT'S SPOUSE WHO STATES SHE WOULD JUST HAVE TO "TRY HER BEST TO TAKE CARE OF HIM AT HOME." PT'S SPOUSE WILL CONSIDER INPATIENT REHAB AT [place], WILL NOT CONSIDER HALFWAY FACILITY AT THIS TIME. CM PROVIDED AND DISCUSSED IMPORTANT MESSAGE FROM MEDICARE. PT'S SPOUSE ASKED CM TO CALL JAMIE BRIGHT, PT'S SON AT [phone], TO INFORM AND DISCUSS REHAB WITH HIM ALSO. CM CALLED JAMIE BRIGHT, , LEFT MESSAGE WITH CM CONTACT INFORMATION. CM PROVIDED PT'S SPOUSE WITH CM CONTACT INFORMATION. CM WAITING INPATIENT REHAB PRESCREENING AND ADMISSION DETERMINATION FROM [facility] IN[facility]. JAROCHO Blackburn DCP- Discharge Planning Updated by [id number]: Zeinab Brown on 10/08/18 5:[address] Patient Name: KURT BRIGHT Admission Status: Elective Accout number: [id number] Admission Date: 10-05-2018 : 1940 Admission Diagnosis: Attending: ARISTEO MOYA Current LOS: 3 Anticipated DC Date: Planned Disposition: Home Primary Insurance: MEDICARE A & B Discharge Planning Comments: CM met with patient and spouse at bedside. Patient plans to return home and resume Home Health Care with [facility]. Denies any discharge needs at this time. CM will continue to follow and assist as needed with discharge planning / needs. Consulting Solution Director: Zeinab Brown DCPIA - Discharge Planning Initial Assessment Updated by [id number]: Zeinab Brown on 10/08/18 6:50 pm * Is the patient Alert and Oriented? Yes * How many steps to enter\\exit or inside your home? 2 - ramp * PCP Viky * [facility] * Preadmission Environment Home with Family * ADLs Partial Dependent * Partial ADLs (Assistance needed) Ambulation Bathing Dressing Eating Medication Management Toileting Transfers * Other Equipment electric w/c , walker, hospital bed, 02 @2L PRN * List name and contact numbers for known caregivers / representatives who currently or will assist patient after discharge: Curt Bright - spouse - [phone] * Verbal permission to speak to the caregivers and representatives has been obtained from the patient. Yes * Community resources currently utilized Home Health * Please name any agencies selected above. [facility] * Additional services required to return to the preadmission environment? No * Can the patient safely return to the preadmission environment? Yes * Has this patient been hospitalized within the prior 30 days at any hospital? No Coverage Notice Reviewer: [id number] Herman Notice Issued Date-Time: 10/15/2018 13:00 Notice Type: Patient Choice Letter Notice Delivered To: Family Member Relationship to Patient: Spouse Deputy Administrator Name: CURT BRIGHT Delivery Method: HAND - Hand Delivered Jessica Days: Prior Verbal Notification: Recipient Understood Notice: Yes Recipient Signature: Yes Med Rec Note Co-signed by Attending: Coverage Notice Comment: SNF LISTING PROVIDER; SPOUSE REFUSED SNF PLACEMENT FOR PT. Reviewer: [id number] Humphrey Herman Notice Issued Date-Time: 10/15/2018 13:00 Notice Type: IM Discharge Notice Notice Delivered To: Family Member Relationship to Patient: Spouse Deputy Administrator Name: CURT BRIGHT Delivery Method: HAND - Hand Delivered Jessica Days: Prior Verbal Notification: Recipient Understood Notice: Yes Recipient Signature: Yes Med Rec Note Co-signed by Attending: Coverage Notice Comment: Reviewer: [id number] - Federico Herman Notice Issued Date-Time: 10/18/2018 11:30 Notice Type: IM Discharge Notice Notice Delivered To: Family Member Relationship to Patient: Spouse Deputy Administrator Name: CURT BRIGHT Delivery Method: HAND - Hand Delivered Jessica Days: Prior Verbal Notification: Recipient Understood Notice: Yes Recipient Signature: Yes Med Rec Note Co-signed by Attending: Coverage Notice Comment: Last DP export: 10/30/18 8:23 a Patient Name: KURT BRIGHT Page [phone] at 1016 All edits/amendments must be made on the electronic document DICTATION DATE: 10/31/18 1016 DECK SUPERVISOR: NEEL 10/31/18 1016 RPT#: [id number] DC DATE: STATUS: ADM IN [facility] [address] [place] [address] END OF REPORT
[2018-10-31] MEDS ORDERED: ZOSYN 2.25 GM2.25 G1 IV (12:48)
[2018-10-31] MEDS ORDERED: MIRALAX17 GM PO (12:48)
--- NOTE | 2018-10-31 13:30 | MORECARE ---
CASE MANAGEMENT DISCHARGE SUMMARY PATIENT: KURT BRIGHT UNIT: [id number] ADM DATE: 10/05/18 AGE: 78 : 40 SEX: M ROOM/BED: D.2230 AUTHOR: KARY,DOC PHYSICIAN: REFERRING PHYSICIAN: ARISTEO MOYA MD DATE OF SERVICE: 10/31/18 Discharge Plan Patient Name: KURT BRIGHT Facility: [facility]:[place] : 1940 Planned Disposition: Inpatient Rehab Anticipated Discharge Date: Discharge Date: Expected LOS: Initial Reviewer: [email or web address] Initial Review Date: 10/08/2018 Generated: 10/31/18 2:30 pm Comments DCP- Discharge Planning Updated by [id number]: Mai Lanza on 10/31/18 12:[address] Received a call from Maral, they will accept to [facility] inpatient rehab today. Tessa states that the hemosplit will be used for dialysis, so he may go to rehab. DC orders received. I called patient's , Curt, and informed her that he would be transferred to inpatient rehab today and she agrees with discharge. CM will continue to follow and assist with discharge planning/needs. DCP- Discharge Planning Updated by [id number]: Mai Lanza on 10/31/18 9:[address] I went to the room to visit with patient, he is in dialysis. I called Maral in inpatient rehab. Maral states they will reevaluate today for inpatient rehab since he is now on MWF dialysis schedule and may be able to accept today. CM will continue to follow and assist with discharge planning/needs. DCP- Discharge Planning Updated by [id number]: Zeinab Brown on 10/30/18 8:[address] LATE ENTRY 10/29/18 @ 1530 CM spoke with Param in Inpatient Rehab she stated that patient isn't doing enough with PT to qualify him for inpatient. CM contacted Argentina Nguyen also to start arranging for outpatient hemodialysis. CM will continue to follow and assist as needed with discharge planning / needs. DCP- Discharge Planning Updated by [id number]: Federico Herman on 10/18/18 2:[address] Patient Name: KURT BRIGHT Encounter No: [id number] : 1940 Primary Insurance: MEDICARE A & B Anticipated DC Date: Planned Disposition: Inpatient Rehab External Planned Provider: [facility] INPATIENT REHAB DCP follow-up note: CM SPOKE TO PARAM OF INPATIENT REHAB, THEY PLAN TO ACCEPT PT WHEN MEDICALLY STABLE AND DOES NOT REQUIRE DAILY DIALYSIS. PT AND SPOUSE NOTIFIED, IN AGREEMENT WITH DISCHARGE TO INPATIENT REHAB. PT'S SPOUSE, CURT, ASKED CM TO CALL HER SON, JAMIE, AND ANSWER QUESTIONS. CM CALLED JAMIE WITH NUMBER PROVIDED BY MRS. BRIGHT, CM ANSWERED DISCHARGE PLANNING QUESTIONS REGARDING REHAB SERVICES, ADVISED BOTH JAMIE AND MRS. BRIGHT TO SPEAK TO THE DOCTOR OR NURSE REGARDING MEDICAL QUESTIONS. BOTH REPORTED UNDERSTANDING. NOTIFY [facility] INPATIENT REHAB WHEN PT IS NO LONGER NEEDING DAILY DIALYSIS SERVICES AND IS STABLE FOR DISCHARGE TO REHAB. Federico Herman, CASE MANAGEMENT DCP- Discharge Planning Updated by [id number]: Federico Herman on 10/15/18 1:[address] Patient Name: KURT BRIGHT Encounter No: [id number] : 1940 Primary Insurance: MEDICARE A & B Anticipated DC Date: Planned Disposition: Inpatient Rehab External Planned Provider: [facility] INPATIENT REHAB DCP follow-up note: CM RECEIVED ORDER FOR INPATIENT REHAB PRESCREENING. CM SPOKE TO PT AND SPOUSE IN ROOM. PT LETHARGIC DURING CM CONSULT VISIT. CM DISCUSSED INPATIENT REHAB PRESCREENING ORDER, PROVIDERS AND LOCATIONS OF INPATIENT REHAB. CM DISCUSSED REQUIREMENT OF ABILITY TO PARTICIPATE IN THREE HOURS OF PROGRESSIVE THERAPY. CM DISCUSSED LONG TERM REHAB SERVICES, LOCATIONS AND PROVIDERS. CM PROVIDED LONG TERM CHOICE LISTING. PT'S SPOUSE TEARFUL, DOES NOT WANT TO CONSIDER SENDING PT TO A LONG TERM FACILITY. SHE STATES SHE WOULD TAKE PT HOME FIRST. CM REVIEWED THERAPY NOTES, DISCUSSED WITH PT'S SPOUSE WHO STATES SHE WOULD JUST HAVE TO "TRY HER BEST TO TAKE CARE OF HIM AT HOME." PT'S SPOUSE WILL CONSIDER INPATIENT REHAB AT [place], WILL NOT CONSIDER LONG TERM FACILITY AT THIS TIME. CM PROVIDED AND DISCUSSED IMPORTANT MESSAGE FROM MEDICARE. PT'S SPOUSE ASKED CM TO CALL JAMIE BRIGHT, PT'S SON AT [phone], TO INFORM AND DISCUSS REHAB WITH HIM ALSO. CM CALLED JAMIE BRIGHT, , LEFT MESSAGE WITH CM CONTACT INFORMATION. CM PROVIDED PT'S SPOUSE WITH CM CONTACT INFORMATION. CM WAITING INPATIENT REHAB PRESCREENING AND ADMISSION DETERMINATION FROM [facility] INPATIENT REHAB. Federico Herman, CASE MANAGEMENT DCP- Discharge Planning Updated by [id number]: Zeinabstephanie Vitaler on 10/08/18 5:[address] Patient Name: KURT BRIGHT Admission Status: Elective Accout number: [id number] Admission Date: 10-05-2018 : 1940 Admission Diagnosis: Attending: ARISTEO MOYA Current LOS: 3 Anticipated DC Date: Planned Disposition: Home Primary Insurance: MEDICARE A & B Discharge Planning Comments: CM met with patient and spouse at bedside. Patient plans to return home and resume Home Health Care with [facility]. Denies any discharge needs at this time. CM will continue to follow and assist as needed with discharge planning / needs. Lock Plater: Zeinab Brown DCPIA - Discharge Planning Initial Assessment Updated by [email or web address]: Zeinab Stephanie on 10/08/18 6:50 pm * Is the patient Alert and Oriented? Yes * How many steps to enter\\exit or inside your home? 2 - ramp * PCP Viky * [facility] * Preadmission Environment Home with Family * ADLs Partial Dependent * Partial ADLs (Assistance needed) Ambulation Bathing Dressing Eating Medication Management Toileting Transfers * Other Equipment electric w/c , walker, hospital bed, 02 @2L PRN * List name and contact numbers for known caregivers / representatives who currently or will assist patient after discharge: Curt Gaston - spouse - [phone] * Verbal permission to speak to the caregivers and representatives has been obtained from the patient. Yes * Community resources currently utilized Home Health * Please name any agencies selected above. [facility] * Additional services required to return to the preadmission environment? No * Can the patient safely return to the preadmission environment? Yes * Has this patient been hospitalized within the prior 30 days at any hospital? No Coverage Notice Reviewer: [id number] - Federico Herman Notice Issued Date-Time: 10/15/2018 13:00 Notice Type: Patient Choice Letter Notice Delivered To: Family Member Relationship to Patient: Spouse Volunteer Services Coordinator Name: CURT BRIGHT Delivery Method: HAND - Hand Delivered Jessica Days: Prior Verbal Notification: Recipient Understood Notice: Yes Recipient Signature: Yes Med Rec Note Co-signed by Attending: Coverage Notice Comment: SNF LISTING PROVIDER; SPOUSE REFUSED SNF PLACEMENT FOR PT. Reviewer: [id number] Humphrey Herman Notice Issued Date-Time: 10/15/2018 13:00 Notice Type: IM Discharge Notice Notice Delivered To: Family Member Relationship to Patient: Spouse Volunteer Services Coordinator Name: CURT BRIGHT Delivery Method: HAND - Hand Delivered Jessica Days: Prior Verbal Notification: Recipient Understood Notice: Yes Recipient Signature: Yes Med Rec Note Co-signed by Attending: Coverage Notice Comment: Reviewer: [id number] Humphrey Herman Notice Issued Date-Time: 10/18/2018 11:30 Notice Type: IM Discharge Notice Notice Delivered To: Family Member Relationship to Patient: Spouse Volunteer Services Coordinator Name: CURT BRIGHT Delivery Method: HAND - Hand Delivered Jessica Days: Prior Verbal Notification: Recipient Understood Notice: Yes Recipient Signature: Yes Med Rec Note Co-signed by Attending: Coverage Notice Comment: Reviewer: [id number] Humphrey Lanza Notice Issued Date-Time: 10/31/2018 13:24 Notice Type: IM Discharge Notice Notice Delivered To: Family Member Relationship to Patient: Spouse Volunteer Services Coordinator Name: Curt Mir Delivery Method: - Jessica Days: Prior Verbal Notification: Recipient Understood Notice: Recipient Signature: Med Rec Note Co-signed by Attending: Coverage Notice Comment: Last DP export: 10/31/18 9:16 a Patient Name: KURT BRIGHT Page [phone] at 1330 All edits/amendments must be made on the electronic document DICTATION DATE: 10/31/18 1329 MATHEMATICAL TECHNICIAN: NEEL 10/31/18 1329 RPT#: [id number] DC DATE: STATUS: ADM IN [facility] [address] [place] [address] END OF REPORT
[2018-10-31 17:12] VITALS: BP 126/51
--- NOTE | 2018-10-31 17:20 | MORECARE ---
CASE MANAGEMENT DISCHARGE SUMMARY PATIENT: KURT BRIGHT UNIT: [id number] ADM DATE: 10/05/18 AGE: 78 : 40 SEX: M ROOM/BED: D.2230 AUTHOR: KARYDOC PHYSICIAN: REFERRING PHYSICIAN: ARISTEO MOYA MD DATE OF SERVICE: 10/31/18 Discharge Plan Patient Name: KURT BRIGHT Facility: [facility]:[place] : 1940 Planned Disposition: Inpatient Rehab Anticipated Discharge Date: Discharge Date: Expected LOS: Initial Reviewer: [id number] Initial Review Date: 10/08/2018 Generated: 10/31/18 6:19 pm Comments DCP- Discharge Planning Updated by [id number]: Mai Lanza on 10/31/18 4:[address] Was informed by patient's nurse (Bonnie) that the patient's wanted to speak to me about stopping dialysis. I went to the room and informed the that the patient will without dialysis and did she want to have him on hospice. She began to cry and states that she is not ready to lose him and she wants to give him a chance. She agrees to inpatient rehab. I informed his nurse that the states at this time she does not want to stop dialysis and would like to proceed with inpatient rehab. DCP- Discharge Planning Updated by [id number]: Mai Lanza on 10/31/18 12:[address] Received a call from Maral, they will accept to [facility] inpatient rehab today. Tessa states that the hemosplit will be used for dialysis, so he may go to rehab. DC orders received. I called patient's , Curt, and informed her that he would be transferred to inpatient rehab today and she agrees with discharge. CM will continue to follow and assist with discharge planning/needs. DCP- Discharge Planning Updated by [id number]: Mai Lanza on 10/31/18 9:[address] I went to the room to visit with patient, he is in dialysis. I called Maral in inpatient rehab. Maral states they will reevaluate today for inpatient rehab since he is now on MWF dialysis schedule and may be able to accept today. CM will continue to follow and assist with discharge planning/needs. DCP- Discharge Planning Updated by [email or web address]: Zeinab Brown on 10/30/18 8:[address] LATE ENTRY 10/29/18 @ 1530 CM spoke with Param in Inpatient Rehab she stated that patient isn't doing enough with PT to qualify him for inpatient. CM contacted Argentina Nguyen also to start arranging for outpatient hemodialysis. CM will continue to follow and assist as needed with discharge planning / needs. DCP- Discharge Planning Updated by [id number]: Federico Herman on 10/18/18 2:[address] Patient Name: KURT BRIGHT Encounter No: [id number] : 1940 Primary Insurance: MEDICARE A & B Anticipated DC Date: Planned Disposition: Inpatient Rehab External Planned Provider: [facility] INPATIENT REHAB DCP follow-up note: CM SPOKE TO PARAM OF INPATIENT REHAB, THEY PLAN TO ACCEPT PT WHEN MEDICALLY STABLE AND DOES NOT REQUIRE DAILY DIALYSIS. PT AND SPOUSE NOTIFIED, IN AGREEMENT WITH DISCHARGE TO INPATIENT REHAB. PT'S SPOUSE, CURT, ASKED CM TO CALL HER SON, JAMIE, AND ANSWER QUESTIONS. CM CALLED JAMIE WITH NUMBER PROVIDED BY MRS. BRIGHT, CM ANSWERED DISCHARGE PLANNING QUESTIONS REGARDING REHAB SERVICES, ADVISED BOTH JAMIE AND MRS. BRIGHT TO SPEAK TO THE DOCTOR OR NURSE REGARDING MEDICAL QUESTIONS. BOTH REPORTED UNDERSTANDING. NOTIFY [facility] INPATIENT REH[facility] WHEN PT IS NO LONGER NEEDING DAILY DIALYSIS SERVICES AND IS STABLE FOR DISCHARGE TO REHAB. Federico Herman, CASE MANAGEMENT DCP- Discharge Planning Updated by [id number]: Federico Herman on 10/15/18 1:[address] Patient Name: KURT BRIGHT Encounter No: [id number] : 1940 Primary Insurance: MEDICARE A & B Anticipated DC Date: Planned Disposition: Inpatient Rehab External Planned Provider: [facility] INPATIENT REH[facility] DCP follow-up note: CM RECEIVED ORDER FOR INPATIENT REHAB PRESCREENING. CM SPOKE TO PT AND SPOUSE IN ROOM. PT LETHARGIC DURING CM CONSULT VISIT. CM DISCUSSED INPATIENT REHAB PRESCREENING ORDER, PROVIDERS AND LOCATIONS OF INPATIENT REHAB. CM DISCUSSED REQUIREMENT OF ABILITY TO PARTICIPATE IN THREE HOURS OF PROGRESSIVE THERAPY. CM DISCUSSED LONGTERM REHAB SERVICES, LOCATIONS AND PROVIDERS. CM PROVIDED LONGTERM CHOICE LISTING. PT'S SPOUSE TEARFUL, DOES NOT WANT TO CONSIDER SENDING PT TO A LONGTERM FACILITY. SHE STATES SHE WOULD TAKE PT HOME FIRST. CM REVIEWED THERAPY NOTES, DISCUSSED WITH PT'S SPOUSE WHO STATES SHE WOULD JUST HAVE TO "TRY HER BEST TO TAKE CARE OF HIM AT HOME." PT'S SPOUSE WILL CONSIDER INPATIENT REHAB AT [place], WILL NOT CONSIDER LONGTERM FACILITY AT THIS TIME. CM PROVIDED AND DISCUSSED IMPORTANT MESSAGE FROM MEDICARE. PT'S SPOUSE ASKED CM TO CALL JAMIE BRIGHT, PT'S SON AT [phone], TO INFORM AND DISCUSS REHAB WITH HIM ALSO. CM CALLED JAMIE BRIGHT, , LEFT MESSAGE WITH CM CONTACT INFORMATION. CM PROVIDED PT'S SPOUSE WITH CM CONTACT INFORMATION. CM WAITING INPATIENT REHAB PRESCREENING AND ADMISSION DETERMINATION FROM [facility] INPATIENT REH[facility]. Federico Herman, CASE MANAGEMENT DCP- Discharge Planning Updated by [id number]: Zeinab Brown on 10/08/18 5:[address] Patient Name: KURT BRIGHT Admission Status: Elective Accout number: [id number] Admission Date: 10-05-2018 : 1940 Admission Diagnosis: Attending: ARISTEO MOYA Current LOS: 3 Anticipated DC Date: Planned Disposition: Home Primary Insurance: MEDICARE A & B Discharge Planning Comments: CM met with patient and spouse at bedside. Patient plans to return home and [facility] Denies any discharge needs at this time. CM will continue to follow and assist as needed with discharge planning / needs. Agricultural Research Engineer: Zeinab Brown DCPIA - Discharge Planning Initial Assessment Updated by [id number]: Zeinab Brown on 10/08/18 6:50 pm * Is the patient Alert and Oriented? Yes * How many steps to enter\\exit or inside your home? 2 - ramp * PCP Viky * [facility] * Preadmission Environment Home with Family * ADLs Partial Dependent * Partial ADLs (Assistance needed) Ambulation Bathing Dressing Eating Medication Management Toileting Transfers * Other Equipment electric w/c , walker, hospital bed, 02 @2L PRN * List name and contact numbers for known caregivers / representatives who currently or will assist patient after discharge: Curt Bright - spouse - [phone] * Verbal permission to speak to the caregivers and representatives has been obtained from the patient. Yes * Community resources currently utilized Home Health * Please name any agencies selected above. [facility] * Additional services required to return to the preadmission environment? No * Can the patient safely return to the preadmission environment? Yes * Has this patient been hospitalized within the prior 30 days at any hospital? No Coverage Notice Reviewer: [id number] Herman Notice Issued Date-Time: 10/15/2018 13:00 Notice Type: Patient Choice Letter Notice Delivered To: Family Member Relationship to Patient: Spouse Senior Commercial Loan Officer Name: CURT BRIGHT Delivery Method: HAND - Hand Delivered Jessica Days: Prior Verbal Notification: Recipient Understood Notice: Yes Recipient Signature: Yes Med Rec Note Co-signed by Attending: Coverage Notice Comment: SNF LISTING PROVIDER; SPOUSE REFUSED SNF PLACEMENT FOR PT. Reviewer: [id number] Herman Notice Issued Date-Time: 10/15/2018 13:00 Notice Type: IM Discharge Notice Notice Delivered To: Family Member Relationship to Patient: Spouse Senior Commercial Loan Officer Name: CURT BRIGHT Delivery Method: HAND - Hand Delivered Jessica Days: Prior Verbal Notification: Recipient Understood Notice: Yes Recipient Signature: Yes Med Rec Note Co-signed by Attending: Coverage Notice Comment: Reviewer: [id number] Herman Notice Issued Date-Time: 10/18/2018 11:30 Notice Type: IM Discharge Notice Notice Delivered To: Family Member Relationship to Patient: Spouse Senior Commercial Loan Officer Name: CURT BRIGHT Delivery Method: HAND - Hand Delivered Jessica Days: Prior Verbal Notification: Recipient Understood Notice: Yes Recipient Signature: Yes Med Rec Note Co-signed by Attending: Coverage Notice Comment: Reviewer: [id number] Humphrey Lanza Notice Issued Date-Time: 10/31/2018 13:24 Notice Type: IM Discharge Notice Notice Delivered To: Family Member Relationship to Patient: Spouse Senior Commercial Loan Officer Name: Curt Mir Delivery Method: HAND - Hand Delivered Jessica Days: Prior Verbal Notification: Recipient Understood Notice: Yes Recipient Signature: Yes Med Rec Note Co-signed by Attending: Coverage Notice Comment: IMM explained, signed, given, copy placed in MR Last DP export: 10/31/18 12:30 p Patient Name: KURT BRIGHT Page [phone] at 1720 All edits/amendments must be made on the electronic document DICTATION DATE: 10/31/181718 ASBESTOS SHINGLE INSPECTOR: NEEL 10/31/181718 RPT#: [id number] DC DATE: STATUS: ADM IN [facility] [address] [place] [address] END OF REPORT
--- NOTE | 2018-10-31 19:55 | NUR ---
PT RESTING IN BED. ALERT WITH SOME CONFUSION. NO SIGNS OF DISTRESS. BREATHING EVEN AND UNLABORED. PT STATES NO PROBLEMS AT THIS TIME. RT JUGULAR TRIALYSIS. DRESSING CLEAN DRY AND INTACT. BRUISES ON BOTH UPPER ARMS. BOWEL SOUNDS ACTIVE. PALACIOS IN PLACE DRAINING NO SIGNS OF INFECTION AT INSERTION SITE. NO LOWER LEG SWELLING. WOUND BUTTOCKS DRESSING CLEAN DRY AND INTACT. RT FOOT WOUND DRESSING CLEAN DRY AND INTACT. WILL CONTINUE PLAN OF CARE. CALL LIGHT IN REACH. BED LOWERED AND LOCKED. BED RAILS UP X2. BED ALARM ON. AT BEDSIDE.
--- NOTE | 2018-10-31 21:00 | NUR ---
FSBS 189 8 UNITS OF INSULIN GIVEN PER SS.
--- NOTE | 2018-11-01 05:52 | NUR ---
EYES CLOSED RESPIRATIONS WITH EASE AND UNLABORED SR UP X2 CALL LIGHT WITHIN REACH.
--- NOTE | 2018-11-01 07:15 | NUR ---
MORNING ASSESSMENT COMPLETE. SEE ASSESSMENT FLOWSHEET FOR FURTHER DETAILS. PT LYING IN BED AAO X4 TO PERSON, PLACE, TIME, AND SITUIATION. AT BEDISDE. DENIES NEEDS AT THIS TIME. CL IN REACH. SIDE RAILS UP X3 FOR PATIENT SAFETY
[2018-11-01 08:46] VITALS: BP 101/47
--- NOTE | 2018-11-01 10:59 | MORECARE ---
CASE MANAGEMENT DISCHARGE SUMMARY PATIENT: KURT BRIGHT UNIT: [id number] ADM DATE: 10/05/18 AGE: 78 : 40 SEX: M ROOM/BED: D.2230 AUTHOR: ROLO PRESTON PHYSICIAN: REFERRING PHYSICIAN: ARISTEO MOYA MD DATE OF SERVICE: 11/01/18 Discharge Plan Patient Name: KURT BRIGHT Facility: [facility]:[place] : 1940 Planned Disposition: Inpatient Rehab Anticipated Discharge Date: Discharge Date: Expected LOS: Initial Reviewer: [email or web address] Initial Review Date: 10/08/2018 Generated: 11/01/18 11:59 am Comments DCP- Discharge Planning Updated by [id number]: Mai Lanza on 11/01/18 9:[address] Spoke with , she is in agreement to inpatient rehab today. I spoke with Maral, they will accept him today to room 1110 after lunch. clinical trials data coordinator and nurse (Abigail) informed. CM will continue to follow and assist with discharge planning/needs. DCP- Discharge Planning Updated by [id number]: Mai Lanza on 10/31/18 4:[address] Was informed by patient's nurse (Bonnie) that the patient's wanted to speak to me about stopping dialysis. I went to the room and informed the that the patient will without dialysis and did she want to have him on hospice. She began to cry and states that she is not ready to lose him and she wants to give him a chance. She agrees to inpatient rehab. I informed his nurse that the states at this time she does not want to stop dialysis and would like to proceed with inpatient rehab. DCP- Discharge Planning Updated by [id number]: Mai Lanza on 10/31/18 12:[address] Received a call from Maral, they will accept to [facility] inpatient rehab today. Tessa states that the hemosplit will be used for dialysis, so he may go to rehab. DC orders received. I called patient's , Curt, and informed her that he would be transferred to inpatient rehab today and she agrees with discharge. CM will continue to follow and assist with discharge planning/needs. DCP- Discharge Planning Updated by [id number]: Mai Lanza on 10/31/18 9:[address] I went to the room to visit with patient, he is in dialysis. I called Maral in inpatient rehab. Maral states they will reevaluate today for inpatient rehab since he is now on MWF dialysis schedule and may be able to accept today. CM will continue to follow and assist with discharge planning/needs. DCP- Discharge Planning Updated by [id number]: Zeinab Brown on 10/30/18 8:[address] LATE ENTRY 10/29/18 @ 1530 CM spoke with Param in Inpatient Rehab she stated that patient isn't doing enough with PT to qualify him for inpatient. CM contacted Argentina Nguyen also to start arranging for outpatient hemodialysis. CM will continue to follow and assist as needed with discharge planning / needs. DCP- Discharge Planning Updated by [id number]: Federico Herman on 10/18/18 2:[address] Patient Name: KURT BRIGHT Encounter No: [id number] : 1940 Primary Insurance: MEDICARE A & B Anticipated DC Date: Planned Disposition: Inpatient Rehab External Planned Provider: [facility] INPATIENT REH[facility] DCP follow-up note: CM SPOKE TO PARAM OF INPATIENT REHAB, THEY PLAN TO ACCEPT PT WHEN MEDICALLY STABLE AND DOES NOT REQUIRE DAILY DIALYSIS. PT AND SPOUSE NOTIFIED, IN AGREEMENT WITH DISCHARGE TO INPATIENT REHAB. PT'S SPOUSE, CURT, ASKED CM TO CALL HER SON, JAMIE, AND ANSWER QUESTIONS. CM CALLED JAMIE WITH NUMBER PROVIDED BY MRS. BRIGHT, CM ANSWERED DISCHARGE PLANNING QUESTIONS REGARDING REHAB SERVICES, ADVISED BOTH JAMIE AND MRS. BRIGHT TO SPEAK TO THE DOCTOR OR NURSE REGARDING MEDICAL QUESTIONS. BOTH REPORTED UNDERSTANDING. NOTIFY [facility] INPATIENT REHAB WHEN PT IS NO LONGER NEEDING DAILY DIALYSIS SERVICES AND IS STABLE FOR DISCHARGE TO REHAB. Federico Herman, CASE MANAGEMENT DCP- Discharge Planning Updated by [id number]: Federico Herman on 10/15/18 1:[address] Patient Name: KURT BRIGHT Encounter No: [id number] : 1940 Primary Insurance: MEDICARE A & B Anticipated DC Date: Planned Disposition: Inpatient Rehab External Planned Provider: [facility] INPATIENT [facility] DCP follow-up note: CM RECEIVED ORDER FOR INPATIENT REHAB PRESCREENING. CM SPOKE TO PT AND SPOUSE IN ROOM. PT LETHARGIC DURING CM CONSULT VISIT. CM DISCUSSED INPATIENT REHAB PRESCREENING ORDER, PROVIDERS AND LOCATIONS OF INPATIENT REHAB. CM DISCUSSED REQUIREMENT OF ABILITY TO PARTICIPATE IN THREE HOURS OF PROGRESSIVE THERAPY. CM DISCUSSED LONGTERM REHAB SERVICES, LOCATIONS AND PROVIDERS. CM PROVIDED LONGTERM CHOICE LISTING. PT'S SPOUSE TEARFUL, DOES NOT WANT TO CONSIDER SENDING PT TO A LONGTERM FACILITY. SHE STATES SHE WOULD TAKE PT HOME FIRST. CM REVIEWED THERAPY NOTES, DISCUSSED WITH PT'S SPOUSE WHO STATES SHE WOULD JUST HAVE TO "TRY HER BEST TO TAKE CARE OF HIM AT HOME." PT'S SPOUSE WILL CONSIDER INPATIENT REHAB AT [place], WILL NOT CONSIDER LONGTERM FACILITY AT THIS TIME. CM PROVIDED AND DISCUSSED IMPORTANT MESSAGE FROM MEDICARE. PT'S SPOUSE ASKED CM TO CALL JAMIE BRIGHT, PT'S SON AT [phone], TO INFORM AND DISCUSS REHAB WITH HIM ALSO. CM CALLED JAMIE BRIGHT, , LEFT MESSAGE WITH CM CONTACT INFORMATION. CM PROVIDED PT'S SPOUSE WITH CM CONTACT INFORMATION. CM WAITING INPATIENT REHAB PRESCREENING AND ADMISSION DETERMINATION FROM [facility] INPATIENT REH[facility]. Federico Herman, CASE MANAGEMENT DCP- Discharge Planning Updated by [id number]: Zeinab Brown on 10/08/18 5:[address] Patient Name: KURT BRIGHT Admission Status: Elective Accout number: [id number] Admission Date: 10-05-2018 : 1940 Admission Diagnosis: Attending: ARISTEO MOYA Current LOS: 3 Anticipated DC Date: Planned Disposition: Home Primary Insurance: MEDICARE A & B Discharge Planning Comments: CM met with patient and spouse at bedside. Patient plans to return home and [facility]. Denies any discharge needs at this time. CM will continue to follow and assist as needed with discharge planning / needs. Lamp Stack Developer: Zeinab Brown DCPIA - Discharge Planning Initial Assessment Updated by [id number]: Zeinab Brown on 10/08/18 6:50 pm * Is the patient Alert and Oriented? Yes * How many steps to enter\\exit or inside your home? 2 - ramp * PCP Viky * [facility] * Preadmission Environment Home with Family * ADLs Partial Dependent * Partial ADLs (Assistance needed) Ambulation Bathing Dressing Eating Medication Management Toileting Transfers * Other Equipment electric w/c , walker, hospital bed, 02 @2L PRN * List name and contact numbers for known caregivers / representatives who currently or will assist patient after discharge: Curt Bright - spouse - [phone] * Verbal permission to speak to the caregivers and representatives has been obtained from the patient. Yes * Community resources currently utilized Home Health * Please name any agencies selected above. [facility] * Additional services required to return to the preadmission environment? No * Can the patient safely return to the preadmission environment? Yes * Has this patient been hospitalized within the prior 30 days at any hospital? No Coverage Notice Reviewer: [id number] Herman Notice Issued Date-Time: 10/15/2018 13:00 Notice Type: Patient Choice Letter Notice Delivered To: Family Member Relationship to Patient: Spouse Set Up Technician Name: CURT BRIGHT Delivery Method: HAND - Hand Delivered Jessica Days: Prior Verbal Notification: Recipient Understood Notice: Yes Recipient Signature: Yes Med Rec Note Co-signed by Attending: Coverage Notice Comment: SNF LISTING PROVIDER; SPOUSE REFUSED SNF PLACEMENT FOR PT. Reviewer: [id number] Herman Notice Issued Date-Time: 10/15/2018 13:00 Notice Type: IM Discharge Notice Notice Delivered To: Family Member Relationship to Patient: Spouse Set Up Technician Name: CURT BRIGHT Delivery Method: HAND - Hand Delivered Jessica Days: Prior Verbal Notification: Recipient Understood Notice: Yes Recipient Signature: Yes Med Rec Note Co-signed by Attending: Coverage Notice Comment: Reviewer: [id number] Herman Notice Issued Date-Time: 10/18/2018 11:30 Notice Type: IM Discharge Notice Notice Delivered To: Family Member Relationship to Patient: Spouse Set Up Technician Name: CURT BRIGHT Delivery Method: HAND - Hand Delivered Jessica Days: Prior Verbal Notification: Recipient Understood Notice: Yes Recipient Signature: Yes Med Rec Note Co-signed by Attending: Coverage Notice Comment: Reviewer: [id number] Humphrey Lanza Notice Issued Date-Time: 10/31/2018 13:24 Notice Type: IM Discharge Notice Notice Delivered To: Family Member Relationship to Patient: Spouse Set Up Technician Name: Curt Mir Delivery Method: HAND - Hand Delivered Jessica Days: Prior Verbal Notification: Recipient Understood Notice: Yes Recipient Signature: Yes Med Rec Note Co-signed by Attending: Coverage Notice Comment: IMM explained, signed, given, copy placed in MR Last DP export: 10/31/18 4:20 p Patient Name: KURT BRIGHT Page [id number] at 1059 All edits/amendments must be made on the electronic document DICTATION DATE: 11/01/18 105 SURFACE BOSS: NEEL 11/01/18 1059 RPT#: [id number] DC DATE: STATUS: ADM IN [facility] [address] [place] [address] END OF REPORT
--- NOTE | 2018-11-01 11:18 | NUR ---
OT NOTE: PT PERFORMED VERY WELL TODAY. REMAINS CONFUSED, BUT APPARENTLY MUCH BETTER THAN YESTERDAY. STATED THAT SHE HAD A VERY HARD TIME WITH HIM.. HE WAS TRYING TO GET OUT OF BED; VERY RESTLESS AND CONFUSED. STATED THAT HE WAS ACTING THIS WAY FOLLOWING DIALYSIS AND ALL THROUGH THE NIGHT. PERFORMED COGNITIVE ACT WITH PT; IMPAIRED STM; PT WAS AWARE THAT HE WAS IN THE HOSPITAL BUT COULD NOT STATE THAT IT WAS A HOSPITAL (OTHER WORD FINDING DEFECITS NOTED THROUGHOUT). SITTING BALANCE BETTER TODAY; ABLE TO SIT UNSUPPORTED X 10 MIN; MOD ASSIST FOR BED MOB INCLUDING SUPINE TO SIT AND SIT TO SUPINE. SIT TO STAND WITH MOD ASSIST; AMB IN ROOM WITH WALKER AND MIN ASSIST X 2 X APPROX 10 FT. PT VERY FATIGUED UPON RETURNING TO BED. ASSISTED PT BACK TO BED VS CHAIR PT WAS AWAITING DRESSING CHANGE TO BOTTOM.. MIN ASSIST WITH BASIC GROOMING TASKS YURI FERNANDO, OTR/L
[2018-11-01 12:46] VITALS: BP 102/38
[2018-11-01 12:46] LABS: ANION GAP 15.4 mmol/L (8-16); CALCIUM 7.9 mg/dL (8.5-10.1); CARBON DIOXIDE 26.4 mmol/L (21.0-32.0); CREATININE - SERUM 6.1 mg/dL (0.6-1.3); EOSINOPHILS 3.5 % (0-7); HEMATOCRIT 32.7 % (42.0-54.0); IMMATURE GRANULOCYTES 2.1 % (0-5); LYMPHOCYTES 12.3 % (15-50); MCH 28.2 pg (26.0-34.0); MCHC 30.6 g/dL (31.0-37.0); MCV 92.4 fL (80.0-100.0); MEAN PLATELET VOLUME 11.5 fL (7.4-10.4); NEUTROPHILS 66.1 % (40-80); PLATELET COUNT 163 10x3/uL (130-400); POTASSIUM - SERUM 3.8 mmol/L (3.5-5.1); RBC 3.54 10x6/uL (4.20-6.10); WBC 12.8 10x3/uL (4.8-10.8)
--- NOTE | 2018-11-01 14:10 | NUR ---
CHANGED R JUGLAR TRIALYSIS DRESSING- BLOODY DRAINAGE NOTED. IT IS NOW C/D/I; PATENT. CHAGNED DRESSING TO COCCYX- CLEANED WITH WOUND SUPERVISOR SEWER SYSTEM, APPLIED SANTLY, ADAPTIC, AND COVERED WITH COCCYX DRSG. CHANGE DRSG TO R HEEL: WET TO DRY- IODINE, TOPPED WITH 4X4, WRAPPED IN KERLEX. PT TOLERATED WELL. AT BEDSIDE.
[2018-11-02] MEDS ORDERED: HUMALOG 30100 UNITS/ SC (09:26)
--- NOTE | 2018-11-02 16:52 | MORECARE ---
CASE MANAGEMENT DISCHARGE SUMMARY PATIENT: KURT BRIGHT UNIT: [id number] ADM DATE: 10/05/18 AGE: 78 : 40 SEX: M ROOM/BED: D.2230 AUTHOR: KARYDOC PHYSICIAN: REFERRING PHYSICIAN: ARISTEO MOYA MD DATE OF SERVICE: 11/02/18 Discharge Plan Patient Name: KURT BRIGHT Facility: [facility]:[place] : 1940 Planned Disposition: Inpatient Rehab Anticipated Discharge Date: Discharge Date: 11/01/2018 Expected LOS: 0 Initial Reviewer: [email or web address] Initial Review Date: 10/08/2018 Generated: 11/02/18 5:52 pm Comments DCP- Discharge Planning Updated by [email or web address]: Mai Lanza on 11/01/18 9:[address] Spoke with , she is in agreement to inpatient rehab today. I spoke with Mar[facility], they will accept him today to room 1110 after lunch. residential program coordinator and nurse (Abigail) informed. CM will continue to follow and assist with discharge planning/needs. DCP- Discharge Planning Updated by [id number]: Mai Lanza on 10/31/18 4:[address] Was informed by patient's nurse (Bonnie) that the patient's wanted to speak to me about stopping dialysis. I went to the room and informed the that the patient will without dialysis and did she want to have him on hospice. She began to cry and states that she is not ready to lose him and she wants to give him a chance. She agrees to inpatient rehab. I informed his nurse that the states at this time she does not want to stop dialysis and would like to proceed with inpatient rehab. DCP- Discharge Planning Updated by [email or web address]: Mai Lanza on 10/31/18 12:[address] Received a call from [facility], they will accept to [facility] inpatient rehab today. Tessa states that the hemosplit will be used for dialysis, so he may go to rehab. DC orders received. I called patient's , Curt, and informed her that he would be transferred to inpatient rehab today and she agrees with discharge. CM will continue to follow and assist with discharge planning/needs. DCP- Discharge Planning Updated by [email or web address]: Mai Lanza on 10/31/18 9:[address] I went to the room to visit with patient, he is in dialysis. I called Maral in inpatient rehab. Maral states they will reevaluate today for inpatient rehab since he is now on MWF dialysis schedule and may be able to accept today. CM will continue to follow and assist with discharge planning/needs. DCP- Discharge Planning Updated by [email or web address]: Zeinab Brown on 10/30/18 8:[address] LATE ENTRY 10/29/18 @ 1530 CM spoke with Param in Inpatient Rehab she stated that patient isn't doing enough with PT to qualify him for inpatient. CM contacted [place] Patrick also to start arranging for outpatient hemodialysis. CM will continue to follow and assist as needed with discharge planning / needs. DCP- Discharge Planning Updated by [email or web address]: Federico Herman on 10/18/18 2:[address] Patient Name: KURT BRIGHT Encounter No: [id number] : 1940 Primary Insurance: MEDICARE A & B Anticipated DC Date: Planned Disposition: Inpatient Rehab External Planned Provider: [facility] INPATIENT REHAB DCP follow-up note: CM SPOKE TO PARAM OF INPATIENT REHAB, THEY PLAN TO ACCEPT PT WHEN MEDICALLY STABLE AND DOES NOT REQUIRE DAILY DIALYSIS. PT AND SPOUSE NOTIFIED, IN AGREEMENT WITH DISCHARGE TO INPATIENT REHAB. PT'S SPOUSE, CURT, ASKED CM TO CALL HER SON, JAMIE, AND ANSWER QUESTIONS. CM CALLED JAMIE WITH NUMBER PROVIDED BY MRS. BRIGHT, CM ANSWERED DISCHARGE PLANNING QUESTIONS REGARDING REHAB SERVICES, ADVISED BOTH JAMIE AND MRS. BRIGHT TO SPEAK TO THE DOCTOR OR NURSE REGARDING MEDICAL QUESTIONS. BOTH REPORTED UNDERSTANDING. NOTIFY [facility] INPATIENT REH[facility] WHEN PT IS NO LONGER NEEDING DAILY DIALYSIS SERVICES AND IS STABLE FOR DISCHARGE TO REHAB. Federico Herman, CASE MANAGEMENT DCP- Discharge Planning Updated by [email or web address]: Federico Herman on 10/15/18 1:[address] Patient Name: KURT BRIGHT Encounter No: [id number] : 1940 Primary Insurance: MEDICARE A & B Anticipated DC Date: Planned Disposition: Inpatient Rehab External Planned Provider: [facility] INPATIENT REH[facility] DCP follow-up note: CM RECEIVED ORDER FOR INPATIENT REHAB PRESCREENING. CM SPOKE TO PT AND SPOUSE IN ROOM. PT LETHARGIC DURING CM CONSULT VISIT. CM DISCUSSED INPATIENT REHAB PRESCREENING ORDER, PROVIDERS AND LOCATIONS OF INPATIENT REHAB. CM DISCUSSED REQUIREMENT OF ABILITY TO PARTICIPATE IN THREE HOURS OF PROGRESSIVE THERAPY. CM DISCUSSED NURSING HOME REHAB SERVICES, LOCATIONS AND PROVIDERS. CM PROVIDED NURSING HOME CHOICE LISTING. PT'S SPOUSE TEARFUL, DOES NOT WANT TO CONSIDER SENDING PT TO A NURSING HOME FACILITY. SHE STATES SHE WOULD TAKE PT HOME FIRST. CM REVIEWED THERAPY NOTES, DISCUSSED WITH PT'S SPOUSE WHO STATES SHE WOULD JUST HAVE TO "TRY HER BEST TO TAKE CARE OF HIM AT HOME." PT'S SPOUSE WILL CONSIDER INPATIENT REHAB AT [place], WILL NOT CONSIDER NURSING HOME FACILITY AT THIS TIME. CM PROVIDED AND DISCUSSED IMPORTANT MESSAGE FROM MEDICARE. PT'S SPOUSE ASKED CM TO CALL JAMIE BRIGHT, PT'S SON AT [phone], TO INFORM AND DISCUSS REHAB WITH HIM ALSO. CM CALLED JAMIE BRIGHT, , LEFT MESSAGE WITH CM CONTACT INFORMATION. CM PROVIDED PT'S SPOUSE WITH CM CONTACT INFORMATION. CM WAITING INPATIENT REHAB PRESCREENING AND ADMISSION DETERMINATION FROM [facility] INPATIENT REHAB. Federico Herman, JAROCHO MANAGEMENT DCP- Discharge Planning Updated by [email or web address]: Zeinab Brown on 10/08/18 5:[address] Patient Name: KURT BRIGHT Admission Status: Elective Accout number: [id number] Admission Date: 10-05-2018 : 1940 Admission Diagnosis: Attending: ARISTEO MOYA Current LOS: 3 Anticipated DC Date: Planned Disposition: Home Primary Insurance: MEDICARE A & B Discharge Planning Comments: CM met with patient and spouse at bedside. Patient plans to return home and resume Home Health Care with [facility]. Denies any discharge needs at this time. CM will continue to follow and assist as needed with discharge planning / needs. Floor Winder: Zeinab Brown DCPIA - Discharge Planning Initial Assessment Updated by [id number]: Zeinab Brown on 10/08/18 6:50 pm * Is the patient Alert and Oriented? Yes * How many steps to enter\\exit or inside your home? 2 - ramp * PCP Viky * [facility] * Preadmission Environment Home with Family * ADLs Partial Dependent * Partial ADLs (Assistance needed) Ambulation Bathing Dressing Eating Medication Management Toileting Transfers * Other Equipment electric w/c , walker, hospital bed, 02 @2L PRN * List name and contact numbers for known caregivers / representatives who currently or will assist patient after discharge: Curt Bright - spouse - [phone] * Verbal permission to speak to the caregivers and representatives has been obtained from the patient. Yes * Community resources currently utilized Home Health * Please name any agencies selected above. [facility] * Additional services required to return to the preadmission environment? No * Can the patient safely return to the preadmission environment? Yes * Has this patient been hospitalized within the prior 30 days at any hospital? No Coverage Notice Reviewer: [id number] Herman Notice Issued Date-Time: 10/15/2018 13:00 Notice Type: Patient Choice Letter Notice Delivered To: Family Member Relationship to Patient: Spouse Machine Programmer Name: CURT BRIGHT Delivery Method: HAND - Hand Delivered Jessica Days: Prior Verbal Notification: Recipient Understood Notice: Yes Recipient Signature: Yes Med Rec Note Co-signed by Attending: Coverage Notice Comment: SNF LISTING PROVIDER; SPOUSE REFUSED SNF PLACEMENT FOR PT. Reviewer: [id number] Herman Notice Issued Date-Time: 10/15/2018 13:00 Notice Type: IM Discharge Notice Notice Delivered To: Family Member Relationship to Patient: Spouse Machine Programmer Name: CURT BRIGHT Delivery Method: HAND - Hand Delivered Jessica Days: Prior Verbal Notification: Recipient Understood Notice: Yes Recipient Signature: Yes Med Rec Note Co-signed by Attending: Coverage Notice Comment: Reviewer: [id number] Herman Notice Issued Date-Time: 10/18/2018 11:30 Notice Type: IM Discharge Notice Notice Delivered To: Family Member Relationship to Patient: Spouse Machine Programmer Name: CURT BRIGHT Delivery Method: HAND - Hand Delivered Jessica Days: Prior Verbal Notification: Recipient Understood Notice: Yes Recipient Signature: Yes Med Rec Note Co-signed by Attending: Coverage Notice Comment: Reviewer: [id number] Humphrey Lanza Notice Issued Date-Time: 10/31/2018 13:24 Notice Type: IM Discharge Notice Notice Delivered To: Family Member Relationship to Patient: Spouse Machine Programmer Name: Curt Mir Delivery Method: HAND - Hand Delivered Jessica Days: Prior Verbal Notification: Recipient Understood Notice: Yes Recipient Signature: Yes Med Rec Note Co-signed by Attending: Coverage Notice Comment: IMM explained, signed, given, copy placed in MR Last DP export: 11/01/18 9:59 a Patient Name: KURT BRIGHT Page [phone] at 1652 All edits/amendments must be made on the electronic document DICTATION DATE: 11/02/181651 PSYCHOLOGICAL ASSISTANT: NEEL 11/02/181651 RPT#: [id number] DC DATE:11/01/18 STATUS: DIS IN [facility] [address] [place] [address] END OF REPORT
== END 2018-11-01 14:51 | DRG 329 ==
LOC: D.SDCHOLD 10:21 → D.ICU 10-05 10:10 → D.M2 10-05 10:10 → D.SDCHOLD 10-05 12:20 → D.ICU 10-05 17:08 → D.M2 10-14 18:26 → D.ICU 10-19 13:17 → D.MS 10-30 11:16
PROVIDERS: Anesthesiology; Family Medicine; Internal Medicine; Internal Medicine Cardiovascular Disease; Internal Medicine Hematology & Oncology; Internal Medicine Nephrology; Surgery; ADMIT Surgery
PROC: 0DTF4ZZ Resection of Right Large Intestine, Percutaneous Endoscopic Approach (ICD-10-PCS; principal; 2018-10-05 12:20)
PROC: 0JH63XZ Insertion of Tunneled Vascular Access Device into Chest Subcutaneous Tissue and Fascia, Percutaneous Approach (ICD-10-PCS; 2018-10-17)
PROC: 02HV33Z Insertion of Infusion Device into Superior Vena Cava, Percutaneous Approach (ICD-10-PCS; 2018-10-17)
DX: C18.2 Malignant neoplasm of ascending colon (principal); R53.2 Functional quadriplegia; N18.4 Chronic kidney disease, stage 4 (severe); N17.9 Acute kidney failure, unspecified; I13.0 Hypertensive heart and chronic kidney disease with heart failure and stage 1 through stage 4 chronic kidney disease, or unspecified chronic kidney disease; Z68.41 Body mass index [BMI] 40.0-44.9, adult; E11.22 Type 2 diabetes mellitus with diabetic chronic kidney disease; I49.5 Sick sinus syndrome; I25.10 Atherosclerotic heart disease of native coronary artery without angina pectoris; K21.9 Gastro-esophageal reflux disease without esophagitis; R31.0 Gross hematuria; I50.9 Heart failure, unspecified; E11.40 Type 2 diabetes mellitus with diabetic neuropathy, unspecified; L97.522 Non-pressure chronic ulcer of other part of left foot with fat layer exposed; E66.01 Morbid (severe) obesity due to excess calories; R41.0 Disorientation, unspecified; W06.XXXA Fall from bed, initial encounter; Y92.230 Patient room in hospital as the place of occurrence of the external cause; D64.9 Anemia, unspecified; E87.6 Hypokalemia; Z95.0 Presence of cardiac pacemaker

== ENCOUNTER 2018-11-01 15:29 | Inpatient (IN) | payer MEDICARE ==
[~2018-11-01] VITALS: Ht 180.3 cm; Wt 113.4 kg
[~2018-11-01 15:29] MED LIST changes: +MIRALAX17 GM PO; +ZOSYN 2.25 GM2.25 G1 IV
--- NOTE | 2018-11-01 15:35 | NUR ---
PT ARRIVED TO FLOOR VIA BED ACCOMPANIED BY HOSPITAL STAFF AND SPOUSE. PT TRANSFERRED TO NEW BED X4 ASSIST. PT ORIENTED TO ROOM. RICHELLE.
[2018-11-01 17:50] VITALS: BP 107/52; BMI 34.9
[2018-11-01 18:25] VITALS: BP 107/52
--- NOTE | 2018-11-01 18:30 | NUR ---
PT RESTING IN BED EATING DINNER, DENIES NEEDS. WCTM.
--- NOTE | 2018-11-01 20:47 | NUR ---
ADMITTED FOR PHYSICAL REHAB. STATES HE HAD COLON CANCER SURGERY. ALERT AND ORIENTED. RESPIRATIONS UNLABORED. NO CURRENT C/O PAIN. PALACIOS PATENT. AT BEDSIDE.
[2018-11-02 00:03] VITALS: BP 111/43
--- NOTE | 2018-11-02 02:52 | NUR ---
AGITATED AND RESTLESS. HAS ATTEMPTED TO GET 0UT OF BED SEVERAL TIMES. GOT ALL THE WAY TO SIDE OF BED AND HAD BUTT SITTING ON SIDE RAIL. ASSISTED X 4 STAFF BACK TO BED. AGAIN ATTEMPTED TO GET OUT OF BED. REDIRECTED BY AND STAFF. SITTING NEXT TO HIM NOW TO REDIRECT HIM. NOTE LEFT FOR DR MONTOYA OF PT BEHAVIOR.
[2018-11-02 03:10] LABS: APPEARANCE CLOUDY (CLEAR); COLOR YELLOW (YELLOW)
[2018-11-02 03:11] LABS: BACTERIA FEW /hpf (NONE SEEN); BILIRUBIN NEGATIVE (NEGATIVE); EPITHELIAL CELLS NSEEN /hpf (0-5); GLUCOSE NEGATIVE (NEGATIVE); KETONE SMALL mg/dL (NEGATIVE); NITRITE NEGATIVE (NEGATIVE); PROTEIN TRACE mg/dL (NEGATIVE); RED CELLS - URINE 0-5 /hpf (0-5); UROBILINOGEN NORMAL (NORMAL)
--- NOTE | 2018-11-02 05:17 | NUR ---
AWAKE BUT CALMER NOW. REMAINS CONFUSED TO SITUATION AND PLACE. PALACIOS PATENT. AT BEDSIDE.
[2018-11-02 07:13] LABS: BASOPHILS 0.7 % (0-2); EOSINOPHILS 4.1 % (0-7); HEMATOCRIT 33.8 % (42.0-54.0); HEMOGLOBIN 10.3 g/dL (13.5-17.5); MCH 28.4 pg (26.0-34.0); MCHC 30.5 g/dL (31.0-37.0); MCV 93.1 fL (80.0-100.0); MEAN PLATELET VOLUME 11.9 fL (7.4-10.4); MONOCYTES 14.5 % (2-11); NEUTROPHILS 68.7 % (40-80); PLATELET COUNT 193 10x3/uL (130-400); RBC 3.63 10x6/uL (4.20-6.10); RDW 19.2 % (11.5-14.5); WBC 11.5 10x3/uL (4.8-10.8)
[2018-11-02 07:22] LABS: ANION GAP 17.4 mmol/L (8-16); CALCIUM 8.2 mg/dL (8.5-10.1); CREATININE - SERUM 6.8 mg/dL (0.6-1.3); POTASSIUM - SERUM 3.4 mmol/L (3.5-5.1)
--- NOTE | 2018-11-02 07:55 | NUR ---
PT RESTING IN BED, EYES CLOSED. RR ARE EVEN AND UNLABORED. SPOUSE AT BEDSIDE. BREAKFAST PROVIDED AND SPOUSE STATES SHE WILL ASSIST PT WITH BREAKFAST. WCTM.
[2018-11-02] MEDS ORDERED: HUMALOG 30100 UNITS/ SC (09:26)
[2018-11-02 12:00] VITALS: BP 98/45
[2018-11-02 14:17] VITALS: Ht 180.3 cm; Wt 113.4 kg
--- NOTE | 2018-11-02 16:12 | NUR ---
COCCYX WOUND IS PROGRESSING WELL WITH USE OF SANTYL. THE WOUND MEASURES 8CM X 7CM X 2CM X 2.5CM FROM 11-2 OCLOCK. IT CONTINUES TO BE UNSTAGEABLE AT THIS TIME DUE TO YELLOW NECROTIC TISSUE COVERING IT, BUT IT IS NOTED THAT THE SANTYL IS LOOSENING THE TISSUE AT [place]. RECOMMEND CONTINUING WITH THE SANTYL UNTIL THE NECROTIC TISSUE IS REMOVED. WOUND CARE CONTINUES TO MONITOR. PT WAS REPOSITIONED ON HIS RIGHT SIDE WITH USE OF 2 WEDGES.
[2018-11-02 17:09] VITALS: BP 97/50
--- NOTE | 2018-11-02 17:27 | NUR ---
PT BACK FROM DIALYSIS. PT BECAME COMBATIVE AND DIALYSIS HAD TO END EARLY. PT REFUSING TO HAVE BLOOD SUGAR CHECKED. FAMILY AT BEDSIDE. WCTM.
--- NOTE | 2018-11-02 19:01 | NUR ---
PATIENT IS RESTING IN HIS BED. HIS DAUGHTER IS AT BEDSIDE. BED IS DOWN LOW WITH SIDE RAILS UP X2.
[2018-11-02 21:06] VITALS: BP 104/64
--- NOTE | 2018-11-03 00:04 | NUR ---
PATIENT IS SLEEPING. BED IS DOWN LOW WITH SIDE RAILS UP X2. DAUGHTER IS AT BEDSIDE.
[2018-11-03 06:44] VITALS: BP 104/64
--- NOTE | 2018-11-03 07:03 | NUR ---
PT BEDSCALE DOES NOT WORK. PT IS UNABLE TO STAND LONG ENOUGH TO GET STANDING WEIGHT. WEIGHT UNABLE TO OBTAIN.
--- NOTE | 2018-11-03 08:36 | NUR ---
PT SITTNG UP IN BED EATING BREAKFAST, FAMILY ASSISTING. FAMILY STATES THEY DO NOT WANT PT TAKING SYNTHROID. WILL NOTIFY DR. PEOPLES.
--- NOTE | 2018-11-03 08:45 | NUR ---
PT C/O CHEST PAIN. CARDIAC ENZYMES AND EKG'S ORDERED.
--- NOTE | 2018-11-03 09:41 | NUR ---
EKG NORMAL. AWAITNG RESULTS OF CARDIAC ENZYMES.
[2018-11-03 10:49] LABS: CKMB 0.7 U/L (0.0-3.6); CREATINE KINASE 14 UL (21-232); TROPONIN-I 0.054 ng/mL (0.000-0.060)
[2018-11-03 12:52] VITALS: BP 118/44
[2018-11-03 16:35] LABS: CKMB 0.7 U/L (0.0-3.6); CREATINE KINASE 19 UL (21-232); TROPONIN-I 0.054 ng/mL (0.000-0.060)
[2018-11-03 19:08] VITALS: BP 109/39
--- NOTE | 2018-11-03 19:13 | NUR ---
PATIENT IS RESTING IN HIS BED. DAUGHTER IS AT BEDSIDE. DENIES ANY NEEDS. BED IS DOWN LOW WITH SIDE RAILS UP X2. CALL LIGHT IS IN REACH.
[2018-11-03 20:54] LABS: CKMB 0.6 U/L (0.0-3.6); CREATINE KINASE 14 UL (21-232); TROPONIN-I 0.036 ng/mL (0.000-0.060)
--- NOTE | 2018-11-04 00:04 | NUR ---
PATIENT IS SLEEPING. BED IS DOWN LOW WITH SIDE RAILS UP X2. CALL LIGHT IS IN REACH. DAUGHTER IS AT BEDSIDE. NURSE IS NOT TO DISTURB HIM FOR [place] VITALS PER DAUGHTER.
[2018-11-04 05:50] VITALS: BP 126/40
--- NOTE | 2018-11-04 08:09 | NUR ---
PT SITTING UP EATING BREAKFAST, FAMILY ASSISTING, DENIES NEEDS. WCTM.
[2018-11-04 09:14] VITALS: BP 116/21
--- NOTE | 2018-11-04 17:38 | NUR ---
PT RESTING IN BED, EATING DINNER, ASSISTING. WCTM.
[2018-11-04 17:57] VITALS: BP 118/42
--- NOTE | 2018-11-04 18:53 | NUR ---
PATIENT IS RESTING IN HIS BED WITH EYES CLOSED. SPOUSE IS AT BEDSIDE WATCHING TV. BED IS DOWN LOW WITH SIDE RAILS UP X2 AND CALL LIGHT IS IN REACH.
--- NOTE | 2018-11-04 19:46 | NUR ---
PATIENT'S SPOUSE CAME UP TO NURSES STATION WITH A RAISED VOICE AND REQUESTED A LIST OF HIS MEDICATIONS. SPOUSE INFORMED NURSE CANNOT PRINT THIS OUT FOR HER. SPOUSE YELLED ANOTHER NURSE TRIED TO HELP OUT BY READING OF PATIENT'S MEDICATION LIST TO HER. SHE WOULD NOT SPEAK TO THE NURSE, TURNED AROUND, WENT BACK TO PATIENT'S ROOM AND SLAMMED THE DOOR. NURSE WENT AND INFORMED HER THAT SHE CANNOT YELL AND SLAM DOORS OR WE WILL HAVE HER ESCORTED OUT.
--- NOTE | 2018-11-04 19:48 | NUR ---
INFORMED SPOUSE WE WILL PRINT REQUEST FOR MEDICAL RECORDS WHICH SHE MAY FILL OUT AND TAKE TO MEDICAL RECORDS IN THE MORNING.
--- NOTE | 2018-11-04 19:55 | NUR ---
MEDICAL RECORDS REQUEST FOR GIVEN TO SPOUSE AND PATIENT REPOSITIONED AT THIS TIME.
--- NOTE | 2018-11-04 20:32 | NUR ---
FOOD MENU TAKEN TO ROOM FOR PATIENT AND HIS SPOUSE TO FILL OUT. SPOUSE REFUSED. SHE STATES THEY DO NOT NEED TO FILL IT OUT BECAUSE THEY WILL NOT BE HERE TOMORROW. FURTHER STATES SHE IS "GETTING HIM OUT OF HERE".
--- NOTE | 2018-11-04 21:12 | NUR ---
PATIENT'S SPOUSE REFUSED ALL MEDICATIONS AND BOTH SCHEDULED DRESSING CHANGES 9TO PATIENT'S RIGHT HEEL AND TO HIS COCCYX. STATES I MAY CHECK HIS BLOOD SUGAR, BUT I MAY NOT CHECK HIS VITAL SIGNS AT MIDNIGHT. VITAL SIGN RESULTS FROM APPROX. 1830 WERE DISCUSSSED. MR. BRIGHT AND HIS SPOUSE BOTH STATE THEY DO NOT WANT HIS VITAL SIGNS CHECKED NOW OR AT MIDNIGHT.
--- NOTE | 2018-11-04 21:24 | NUR ---
PATIENT AND HIS SPOUSE INFORMED THE NURSING NET DEVELOPMENT MANAGER IS HERE IF THEY WOULD LIKE TO SPEAK TO HER. THEY BOTH STATE THEY DO NOT WANT TO SPEAK WITH NURSING NET DEVELOPMENT MANAGER AND SPOUSE FURTHER STATES SHE DOES NOT WANT TO SPEAK TO ANYONE.
--- NOTE | 2018-11-04 22:10 | NUR ---
PATIENT IS RESTING IN HIS BED. PATIENT AND SPOUSE DENY ANY NEEDS. BED IS DOWN LOW WITH SIDE RAILS UP X2. CALL LIGHTIS IN REACH.
--- NOTE | 2018-11-05 00:12 | NUR ---
PATIENT REPOSITIONED BY STAFF X2 AFTER GETTING SIDE WAYS IN HIS BED. SPOUSE WAS SLEEPING AT BEDSIDE. BED ALARM WAS IN PLACE AND ACTIVATED BUT NOT ALARMING. BED IS DOWN LOW WITH SIDE RAILS UP X3. BED ALARM ACTIVATED. CALL LIGHT IN REACH.
--- NOTE | 2018-11-05 04:05 | NUR ---
PATIENT IS SLEEPING. SPOUSE AT BEDSIDE. BED IS DOWN LOW WITH SIDE RAILS UP X3, CALL LIGHT IN REACH, BED ALARM ACTIVATED.
[2018-11-05 06:08] VITALS: BP 134/46
--- NOTE | 2018-11-05 07:20 | NUR ---
PT LYING IN BED. CALL LIGHT IN REACH. PT DENIES NEEDS OR PAIN. IN ROOM BED IN LOW POSITION. SIDE RAILS X3. WILL CONTINUE TO MONITOR.
[2018-11-05 07:47] LABS: ANION GAP 18.5 mmol/L (8-16); CALCIUM 8.3 mg/dL (8.5-10.1); CARBON DIOXIDE 23.9 mmol/L (21.0-32.0); CREATININE - SERUM 8.3 mg/dL (0.6-1.3); POTASSIUM - SERUM 3.4 mmol/L (3.5-5.1)
[2018-11-05 08:25] LABS: BASOPHILS 0.7 % (0-2); EOSINOPHILS 2.7 % (0-7); HEMATOCRIT 34.2 % (42.0-54.0); HEMOGLOBIN 10.6 g/dL (13.5-17.5); IMMATURE GRANULOCYTES 1.5 % (0-5); LYMPHOCYTES 13.1 % (15-50); MCH 28.7 pg (26.0-34.0); MCV 92.7 fL (80.0-100.0); MEAN PLATELET VOLUME 11.8 fL (7.4-10.4); PLATELET COUNT 205 10x3/uL (130-400); RBC 3.69 10x6/uL (4.20-6.10); RDW 19.6 % (11.5-14.5); WBC 11.5 10x3/uL (4.8-10.8)
--- NOTE | 2018-11-05 09:59 | NUR ---
PT TROPONIN LEVELS 0.072. THIS NURSE CALLED JAN AND JAN ORDERED FOR CONSULT FOR CARDIOLOGY. THIS NURES CALLED JADE. HIS NURSE CALLED BACK. 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 PT IS ON PIPERCILLIN AND IS ALLERGIC TO PENICILLIN. JAN [facility]. WILL CONITNUE TO MONITOR.
--- NOTE | 2018-11-05 11:52 | NUR ---
PATIENT ADMITTED TO REHAB FROM ACUTE FLOOR. DR. ANDRES IS HER PCP. DME AT HOME IS A ELECTRIC WHEELCHAIR, WALKER, HOSPITAL BED AND O2. WILL CONTINUE TO FOLLOW WITH PATIENT . HOME HEALTH WAS WITH .
--- NOTE | 2018-11-05 12:00 | NUR ---
JADE SAW PT AND DECIDED HE WILL HAVE HEART CATH TOMORROW. PLAN TO DC PT FROM REHAB TO ACUTE CARE. DIAGNOSIS SENT TO HOUSE SUP. WILL CONTINUE TO MONITOR.
[2018-11-05] MEDS ORDERED: BENADRYL25 MG PO (12:55)
[2018-11-05 13:00] VITALS: BP 123/40
[2018-11-05] MEDS ORDERED: TUMS X-STR300 MG PO (13:06)
[2018-11-05] MEDS ORDERED: HYDROCODON-ACE1 EAC7 PO (13:06)
[2018-11-05] MEDS ORDERED: PROTONIX40 MG PO (13:07)
[2018-11-05] MEDS ORDERED: SANTYL30 GM TP (13:09)
--- NOTE | 2018-11-05 13:54 | NUR ---
DUE TO CHANGE IN MEDICAL CONDTION PATIENT DSICHARGED FROM REHAB AND ADMITTED TO ACUTE FLOOR. FAMILY AT BEDSIDE
--- NOTE | 2018-11-05 14:47 | NUR ---
PT GOING TO ROOM 2110
--- NOTE | 2018-11-05 15:09 | NUR ---
CALLED REPORT TO STEPHANIE COTTO. PT LEFT FLOOR VIA BED. WITH PT. ALL OF BELONGINGS TAKEN WITH PT.
--- NOTE | 2018-11-13 11:18 | CN ---
PATIENT NAME:KURT BRIGHT MEDICAL RECORD: [id number] : 40 LOCATION:SID.1110 ADMIT DATE: 11/01/18 ACCOUNT: [id number] CONSULTING PHYSICIAN: OSMIN HANSEN MD REFERRING PHYSICIAN: DIRK MONTOYA MD DATE OF CONSULTATION: 11/05/2018 DIAGNOSES: 1. Non-Q-wave myocardial infarction. 2. Coronary artery disease. 3. End-stage renal failure, on dialysis. 4. Paroxysmal atrial fibrillation. 5. Carotid vascular disease. 6. Hypertension. 7. Peripheral vascular disease. 8. Claudication. HISTORY OF PRESENT ILLNESS: This is a gentleman who has been having 2 days of chest pain. He is status post partial hemicolectomy for colon cancer. He is on the rehab floor, had been having 2 days of chest pain. His troponin is elevated. He has the above-mentioned cardiac risk factors. He as well has been complaining of leg pain, right greater than left. He was seen by Dr. Hubbard and he supposedly has significant stenosis of both carotids. PHYSICAL EXAMINATION: GENERAL APPEARANCE: Well-nourished, well-developed, appears stated age. Level of distress, comfortable. PSYCHIATRIC: Mental status, alert, normal affect. Orientation, oriented to time, place and person. EYES: Lids and conjunctiva, noninjected. No discharge, no pallor. ENT: Lips, teeth, gums, normal dentition. Oropharynx, no cyanosis, no pallor. NECK: Carotid arteries, bilateral normal upstroke, no bruits, no thrills. JUGULAR VEINS: No jugular venous pressure or distention. CERVICAL LYMPH NODES: Nontender, nonenlarged. THYROID: Not enlarged. Nontender. No nodules. LUNGS: Respiratory effort, unlabored. CHEST: Normal curvature. No thoracic deformity. No chest wall tenderness. Percussion, resonant. Auscultation, clear. No wheezes, no rales, no rhonchi. CARDIOVASCULAR: Precordial exam, nondisplaced. No heaves or pericardial thrills. Rate and rhythm, regular. Heart sounds, normal S1, normal S2. No S3, no gallop, no rub. Systolic murmur, not heard. Diastolic murmur, not heard. EXTREMITIES: No cyanosis, no edema. Peripheral pulses, full and equal in all extremities, except as noted. No bruits appreciated. ABDOMEN: Soft, nondistended. Normal aorta. No bruit. Nontender. No masses. Liver, nontender, no hepatomegaly. Spleen, nontender, no splenomegaly. MUSCULOSKELETAL: No joint tenderness. No joint swelling. No erythema. NEUROLOGICAL: Normal gait, normal strength, normal tone. SKIN: Warm and dry. IMPRESSION: Chest pain with elevated troponin compatible with a non-Q-wave myocardial infarction. We will proceed with coronary angiography. We will also do carotid and lower extremity angiography at the same time. TRANSINT:[id number] Voice Confirmation ID: [id number] DOCUMENT ID: [id number] CONSULT REPORT [id number] KURT BIRGHT JEFFREY MD at 1118 CC: [id number] DICTATION DATE: 11/05/18 1202 MEDICAL PATHOLOGIST: 11/05/18 1231 DIS IN 11/05/18 [address] [place] [address]
--- NOTE | 2018-11-14 10:28 | RHP ---
PATIENT: KURT BRIGHT MEDICAL RECORD: [id number] ACCOUNT: [id number] [facility] ADMISSION DATE: 11/01/18 REHABILITATION HISTORY AND PHYSICAL EXAMINATION POST ADMISSION PHYSICIAN EXAMINATION POST-ADMISSION PHYSICAL EXAMINATION AND HISTORY AND PHYSICAL DATE OF ADMISSION: 11/01/2018 ADMITTING DIAGNOSIS: Uremic myopathy. HISTORY OF PRESENT ILLNESS: The patient was admitted to the inpatient rehab with a neurological condition of uremic myopathy. He is a 78-year-old gentleman with a history of adult-onset diabetes, coronary artery disease, edema, gout, colon cancer, cardiomyopathy, chronic kidney disease, who was admitted to the hospital for partial colectomy for adenocarcinoma of the descending colon on 10/05. He had some confusion postop and worsened renal functions. He was in the acute hospital in July 2008, had fluid overload and a 40-pound weight gain. He had worsened from his renal function from a glomerular filtration rate of 8 to 15 and BUN of 21 to 111, creatinine had gone from 4 to 7. He ultimately ended up requiring hemodialysis, initially required hemodialysis every day. He is now on a Jjxjnj-Edzqjqfrd-Sjquqt schedule. He continues to have some hematuria from the Urbina catheter. He had been seen by the urologist. He continues to have some urinary output and his urine has cleared up. He has chronic foot wounds and has been followed by the program clinician during his stay. Also, some noted skin breakdown. Wound care is actually seeing him. Tinsel Machine Operator has been consulted during his stay also. He is followed by general surgery and oncology. He is a new hemodialysis patient. Hemodialysis catheter was passed on 10/17. He had increased postop confusion, increased requirement of supplemental O2, Urbina catheter. He has been having skin breakdown. He is on IV antibiotics. He has proximal muscle weakness, impaired mobility. He is high risk for falls, debility, deconditioning secondary to his extended hospital stay and self-care deficits. These are all barriers to his discharge home safely at this time. He lives at home with his and moderately independent with mobility with the use of rolling walker and electric wheelchair at times. He was independent to setup with ADLs prior to this hospitalization. He and his family are hopefully we will return him at his prior level of functioning or better when he goes home. Comorbidities include diabetes, adenocarcinoma, chronic kidney disease, hypertension, left lower lobe pneumonia, acute renal failure, elevated troponin, leukocytosis, pressure ulcers to the deep tissues of his foot, chronic kidney disease, anemia, increased confusion, debility, deconditioning, impaired mobility, and self-care deficits. PAST MEDICAL HISTORY: Significant for neuropathy, weakness, cataracts, glasses, allergies, diabetes, thyroid problems, home O2, he is on CPAP, colon cancer, acid reflux, diverticulitis, constipation, hemorrhoids, arthritis, chronic back pain, ulcers, sores, enlarged prostate, cardiomyopathy, and coronary artery disease. PAST SURGICAL HISTORY: Includes angioplasty with stents, pacemaker, coronary artery bypass grafting, and tonsillectomy. ALLERGIES: PENICILLIN, SULFA, MORPHINE, CODEINE, ACTOS, AND PLAVIX. HISTORY AND PHYSICAL [id number] KURT BRIGHT CURRENT MEDICATIONS: Include Floranex daily. He is on metoprolol 100 mg daily, Zaroxolyn 5 mg daily, Zestril 10 mg daily, Synthroid 50 mcg daily, Uloric 40 mg daily, Bumex 2 mg daily, Cordarone 200 mg daily. He is on potassium and electrolyte protocol at this time. He is on Zosyn 2.25 grams every 6 hours. He is on insulin 20 units t.i.d. q.a.c. of the Novolin. He is on Santyl ointment and he is on a high-resistance sliding scale with Humalog. HABITS: No current alcohol or tobacco use. FAMILY HISTORY: Noncontributory. SOCIAL HISTORY: The patient hopes to return back home with his and get back to his prior level of functioning. REVIEW OF SYSTEMS: GENERAL: Does complain of weakness and fatigue. HEENT: Denies cold, cough, or congestion. CARDIOVASCULAR: Denies chest pain. PHYSICAL EXAMINATION: VITAL SIGNS: Stable, afebrile. GENERAL: A morbidly obese gentleman, in no acute distress upon exam. HEENT: Normocephalic and atraumatic. Mucosa moist. NECK: Supple. No lymphadenopathy. LUNGS: Clear at this time with no wheezing or rales. HEART: Regular rate and rhythm. No murmurs, rubs or gallops. ABDOMEN: Benign. EXTREMITIES: Does have noted sores and edema. NEUROLOGIC: He does have noted proximal muscle weakness. LABORATORY DATA: His white count is 11.5, H&H of 10.3 and 33.8, and platelet count is 193. His sodium is 138, potassium 3.4, BUN and creatinine of 30 and 6.8, blood sugar is noted to be 187. Admit UA did show 1+ leukocyte esterase, 10-25 white blood cells. He is on antibiotics at this time. A urine culture has been set up. ASSESSMENT: This is a 78-year-old gentleman admitted to the rehab with a working diagnosis of uremic myopathy. The patient has potential to make improvement. We will institute the following multidisciplinary therapies including, but not limited to, physical, occupational, respiratory therapy, and orthotics. The patient has potential to make improvement and a skilled nurse facility is not appropriate for that. PLAN: 1. Admit to [facility] for the following modalities; A. Physical therapy to improve gait, all transfer skills, and bed mobility to modified independent level. B. Occupational therapy to improve activities of daily living to a modified independent level. C. Case management to assist with discharge planning and placement options. D. Nutrition to assist with nutritional needs. E. Rehabilitation nursing to assist in monitoring the patient's underlying medical conditions and to assist with any type of bowel or bladder management. 2. The patient's current medication and medical care will be continued. 3. The patient will be placed on standard fall precautions. HISTORY AND PHYSICAL [id number] KURT BRIGHT 4. The patient's estimated length of stay is approximately 7-10 days. 5. We will continue with wound care and I will follow up in the a.m. TRANSINT:[id number] Voice Confirmation ID: [id number] DOCUMENT ID: [id number] YOLI notes whether there has been none or any medical/functional change since admission: - No change since preadmission screen. YOLI attests patient continues to be appropriate for IRF: - Continues to be appropriate. DIRK MONTOYA MD at 1028 CC: [id number] DICTATION DATE: 11/02/18913 OTHER SPATIAL SCIENTIST: 11/02/18939 DIS IN 11/05/18 [place] [address]
== END 2018-11-05 15:11 | disposition short-term general hospital (02) | DRG 91 ==
LOC: D.REHAB 15:29
PROVIDERS: ADMIT Emergency Medicine
DX: G72.89 Other specified myopathies (principal); J18.1 Lobar pneumonia, unspecified organism; N18.4 Chronic kidney disease, stage 4 (severe); N17.9 Acute kidney failure, unspecified; E11.65 Type 2 diabetes mellitus with hyperglycemia; R13.12 Dysphagia, oropharyngeal phase; Z99.2 Dependence on renal dialysis; E11.22 Type 2 diabetes mellitus with diabetic chronic kidney disease; I12.9 Hypertensive chronic kidney disease with stage 1 through stage 4 chronic kidney disease, or unspecified chronic kidney disease; D72.829 Elevated white blood cell count, unspecified; L89.899 Pressure ulcer of other site, unspecified stage; R53.81 Other malaise; R41.0 Disorientation, unspecified; R60.9 Edema, unspecified; R07.9 Chest pain, unspecified

== ENCOUNTER 2018-11-05 14:14 | Inpatient (IN) | payer MEDICARE ==
[~2018-11-05] VITALS: Ht 180.3 cm; Wt 129.4 kg
--- NOTE | ~2018-11-05 | HEMODYNAMI ---
PATIENT:KURT BRIGHT MEDICAL RECORD: [id number] : 40 LOCATION:[facility] D.2112 ADMISSION DATE: 11/05/18 Generatedon:11/06/201816:41 Patient name: KURT BRIGHT Patient #: [id number] SSN: : 1940 Date of study: 11/06/2018 Page: Of Hemodynamic Procedure Report Patient Data Patient Demographics Procedure consent was obtained First Name: KURT Gender: Male Last Name: DEANGELO : 1940 [facility] Initial: FLORINA Age: 78 year(s) Patient #: [id number] Race: Unknown Additional ID: [id number] Contact details [address]: [address] [place] [address] State: [place] City: [place] Zip code: [address] Past Medical History Allergies Allergen Reaction Date Comments Reported Other allergy 11/06/2018 Sulfa, Clopidogrel, codeine, PCN, Morphine. Admission Admission Data Admission Date: 11/05/2018 Admission Time: 15:11 Room #: D.2112 Height (in.): 70.87 BSA: 2.32 (m2) Height (cm.): 180 BMI: 35 (kg/m2) Weight (lbs.): 250.01 Weight (kg.): 113.4 Lab Results Lab Result Date: 11/06/2018 Lab Result Time: 0:00 Biochemistry Name Units Result Min Max BUN mg/dl 35 --(----)-* 7 18 Creatinine mg/dl 8.3 --(----)-* 0.6 1.3 CBC Name Units Result Min Max Hemoglobin g/dl 10.6 *-(----)-- 13.5 17.5 Procedure Procedure Types Cath Procedure Diagnostic Procedure C C w/Coronaries w/Grafts Sedation Charges Moderate Sedation up to 15 minutes PCI Procedure AMI/SVG/SCIENTIFIC INFORMATICS LEADER PTCA or Stent SVG-BMS/SHELBI Initial Peripheral Cath Diagnostic Procedure Life Sciences Manager Peripheral Procedures Kwmjf-Xtaocpa-Bkj-Off Four Vessel Arteriogram Procedure Description Procedure Date Procedure Date: 11/06/2018 Procedure Start Time: 15:12 Procedure End Time: 15:40 Procedure Staff Name Function Anand Youngblood MD Performing Physician Gurinder Hill RT Monitor Michael Puente RN Nurse Gail Ko RT Scrub Gail Aragon RT Monitor Procedure Data Cath Procedure Fluoroscopy Diagnostic fluoroscopy Total fluoroscopy Time: 10 time: 10 min min Diagnostic fluoroscopy Total fluoroscopy dose: dose: 2231 mGy 2231 mGy Contrast Material Contrast Material Type Amount (ml) Isovue 300 191 Entry Location Entry Primary Successful Side Size Upsize Upsize Entry Closure Succes sful Closure Location (Fr) 1 (Fr) 2 (Fr) Remarks Device Remarks Femoral Right 5 Fr 6 Fr Exoseal artery Short Estimated blood loss: 10 ml Diagnostic catheters Device Type Used For End Catheter Placement MULTIPACK Pigtail 5 Fr Procedure catheter MULTIPACK JL 4.0 5Fr Procedure catheter MULTIPACK 3DRC 5Fr Procedure catheter DIAGNOSTIC AR2 MOD 5 Fr Procedure catheter ([id number]) MULTIPACK 3DRC 5Fr Procedure catheter Procedure Complications No complications Procedure Medications Medication Administration Route Dosage 0.9% NaCl I.V. 10 ml/hr Oxygen etCO2 Nasal cannula 2 l/min Heparin Flush Bag added to field 2 bags (1000units/500ml NS) Lidocaine 2% added to field 20 Benadryl I.V. 50 mg Versed I.V. 0.5 mg Heparin Bolus I.V. 4000 units Integrilin (Bolus I.V. 10.2 ml 2mg/ml) Integrilin (Bolus wasted 9.8 ml 2mg/ml) Effient P.O. 60 mg Hemodynamics Rest BSA: 2.32 (m2) HGB: 10.6 (g/dl) O2 Consumption: Estimated: 253.27 (ml/min) O2 Co nsumption indexed: Estimated:109.17 (ml/min/m) Heart Rate: 56 (bpm) Snapshots Pre Cath Intra NCS Post Cath Vital Signs Time Heart Resp SPO2 etCO2 NIBP Rhythm Pain Sedation Rate (ipm) (%) (mmHg) (mmHg) Status Level (bpm) 15:07:52 54 17 99 20.2 136/60(97) Paced 0 (11) 10(A) , No pain 15:12:59 54 17 100 16.5 121/51(90) Paced 0 (11) 10(A) , No pain 15:17:13 54 17 99 22.5 123/56(81) Paced 0 (11) 9(A) , No pain 15:21:33 55 17 98 0 117/49(86) Paced 0 (11) 9(A) , No pain 15:25:39 62 21 99 19.5 118/64(92) Paced 0 (11) 9(A) , No pain 15:29:55 55 18 99 15 114/52(86) Paced 0 (11) 9(A) , No pain 15:34:03 54 18 99 17.2 110/54(83) Paced 0 (11) 9(A) , No pain 15:38:17 54 17 98 0 122/54(93) Paced 0 (11) 9(A) , No pain Medications Time Medication Route Dose Verified Delivered Reason Notes Effectiveness by by 15:09:44 0.9% NaCl I.V. 10 Michael Michael Per physician ml/hr Cindi Puente RN RN 15:09:53 Oxygen etCO2 2 Michael Michael for low 02 sats Nasal l/min Cindi Puente cannula RN RN 15:10:04 Heparin Flush added 2 Michael Michael used for Bag to bags Cindi Puente procedure (1000units/500ml RN RN NS) 15:10:15 Lidocaine 2% added 20ml Michael Michael for local to vial Cindi Puente anesthetic RN RN 15:10:27 Benadryl I.V. 50 mg Michael Michael Per physician Cindi Puente RN RN 15:10:41 Versed I.V. 0.5 Michael Michael for sedation mg Cinid Puente RN RN 15:26:23 Heparin Bolus I.V. 4000 Michael Michael for units Cindi Puente anticoagulation RN RN 15:26:39 Integrilin I.V. 10.2 Michael Michael for (Bolus 2mg/ml) ml Cindi Puente antiplatelet RN RN therapy 15:26:51 Integrilin wasted 9.8 Michael Michael to sharp's (Bolus 2mg/ml) ml Cindi Puente RN RN 15:38:37 Effient P.O. 60 mg Michael Michael for Cindi Puente antiplatelet RN RN therapy Procedure Log Time Note 14:33:39 Michael Puente RN sent for patient. Start room use. 14:33:40 Time tracking: Regular hours (M-F 7:00 - 5:00) 14:33:43 Plan of Care:Hemodynamics will remain stable., Cardiac rhythm will remain stable., Comfort level will be maintained., Respiratory function will remain adequate., Patient/ family verbilizes understanding of procedure., Procedure tolerated without complication., Recovers from procedure without complications.. 14:33:45 Diagnostic Cath status Elective 14:33:46 Signed procedure consent form obtained from patient. 14:33:53 H&P Date Dictated: 11/05/2018 Within 30 days and on chart.. 14:39:34 Lab Result : Hemoglobin 10.6 g/dl 14:39:34 Lab Result : Creatinine 8.3 mg/dl 14:39:34 Lab Result : BUN 35 mg/dl 14:39:47 Patient Weight : 250.01 lbs 14:39:59 Patient Height : 70.87 inches 14:44:35 Patient received from Other to CCL 2 Alert and oriented. Tansferred to table in Supine position. 14:44:36 Correct patient and procedure confirmed by team. 14:44:36 Warm blankets applied, and madie hugger turned on for patient comfort. 14:44:37 ECG and BP/O2 sat monitors applied to patient. 15:06:44 Vital chart was started 15:06:45 Baseline sample Acquired. 15:06:56 Rhythm: sinus rhythm , paced 15:06:57 Full Disclosure recording started 15:06:58 Pre-op teaching completed and patient verbalized understanding. 15:06:58 Pre-procedure instructions explained to patient. 15:06:59 Family in patients room. 15:07:01 Patient NPO since Midnight. 15:07:41 Patient allergic to Other allergySulfa, Clopidogrel, codeine, PCN, Morphine. 15:07:42 Is the patient allergic to Iodine/contrast media? No. 15:08:16 IV CATHETER 22g opened to sterile field. 15:09:04 Is patient on blood thinner?No 15:09:08 ACC The patient was administered the following blood thiners within the last 24 hours: None 15:09:10 Patient diabetic? Yes. 15:09:11 If diabetic: On Metformin? Yes 15:09:14 Previous problem with sedation/anesthesia? No ? 15:09:18 Snore? Yes 15:09:19 Deviated septum? No 15:09:19 Sleep apnea? Yes 15:09:20 Opens mouth fully? Yes 15:09:21 Sticks out tongue? Yes 15:09:23 Airway obstruction? No ? 15:09:24 Dentures? No ? 15:09:28 Pre procedure: right dorsailis pedis pulse Doppler 15:09:30 Pre procedure: left dorsailis pedis pulse Doppler 15:09:32 Patient pain scale 0/10 ?. 15:09:44 0.9% NaCl 10 ml/hr I.V. was administered by Michael Puente RN; Per physician; 15:09:45 IV started by Michael Puente RN inright hand with a 22 gauge IV catheter with 0.9% NaCl at KVO. 15:09:46 Lab results completed and on chart. 15:09:49 Alarms reviewed by R. N. 15:09:49 Bilateral groins area was prepped with chlora-prep and draped in sterile fashion 15:09:50 Sharps counted by scrub and verified by R.N. 15:09:53 Use device set Femoral Dx 15:09:53 Oxygen 2 l/min etCO2 Nasal cannula was administered by Michael Puente RN; for low 02 sats; 15:09:54 Medline Cath Pack ([id number]) opened to sterile field. 15:09:54 Bag Decanter (2002S) opened to sterile field. 15:09:54 ACIST Syringe (49638) opened to sterile field. 15:09:55 ACIST Hand Control (11366) opened to sterile field. 15:09:56 Tegaderm 4 x 4 (1626W) opened to sterile field. 15:09:56 ACIST Manifold (35063) opened to sterile field. 15:09:58 SHEATH 5FR Kirby (RIB235) opened to sterile field. 15:09:59 DIAGNOSTIC Multipack 5Fr catheter set (BS9706) opened to sterile field. 15:10:00 DIAGNOSTIC WIRE .035 260cm J wire (022797) opened to sterile field. 15:10:04 Heparin Flush Bag (1000units/500ml NS) 2 bags added to field was administered by Michael Puente RN; used for procedure; 15:10:15 Lidocaine 2% 20ml vial added to field was administered by Michael Puente RN; for local anesthetic; 15:10:19 Physician arrived 15:10:20 Final Timeout: patient, procedure, and site verified with staff and physician. All members of the team are in agreement. 15:10:20 --------ALL STOP TIME OUT------ 15:10:21 Bilateral groins site verified by team. 15:10:24 Fire Safety Assessment: A--An alcohol-based skin anteseptic being used preoperatively., C--Open oxygen or nitrous oxide is being used., D--An ESU, laser, or fiber-optic light is being used. 15:10:26 Physical assessment completed. ASA score P 3 - A patient with severe systemic disease as per Anand Youngblood MD. 15:10:27 Benadryl 50 mg I.V. was administered by Michael Puente RN; Per physician; 15:10:28 Sedation plan: IV Moderate Sedation Medication:Versed, Fentanyl 15:10:41 Versed 0.5 mg I.V. was administered by Michael Puente RN; for sedation; 15:11:17 Zero performed for pressure channel P1 15:12:40 Procedure started. 15:12:46 Local anesthetic to right femoral artery with Lidocaine 2% by Anand Youngblood MD.INITIAL ACCESS ONLY 15:13:01 A 5 Fr sheath was inserted into the Right Femoral artery 15:13:18 A MULTIPACK Pigtail 5 Fr catheter was advanced over the wire and used for Procedure. 15:13:47 LV gram done using MCKEON 15:13:50 Injector settings: Ml/sec: 10, Volume: 20, 15:13:51 LV hemodynamics recorded. 15:13:55 EF : 30 % 15:13:59 Abdominal angiogram w/ runoff was performed. 15:14:25 Left leg runoff performed. 15:14:29 Right leg runoff performed. 15:15:00 Catheter exchanged over wire. 15:16:18 A MULTIPACK JL 4.0 5Fr catheter was advanced over the wire and used for Procedure. 15:16:20 Zero performed for pressure channel P1 15:16:30 LCA angiography performed. 15:16:32 Catheter exchanged over wire. 15:17:03 A MULTIPACK 3DRC 5Fr catheter was advanced over the wire and used for Procedure. 15:17:06 MENDOZA to LAD angiography performed. 15:17:39 RCA angiography performed. 15:18:02 Catheter exchanged over wire. 15:18:16 A DIAGNOSTIC AR2 MOD 5 Fr catheter ([id number]) was advanced over the wire and used for Procedure. 15:18:54 SVG to Circ angiography performed. 15:19:04 SVG to RCA angiography performed. 15:19:44 Catheter removed. 15:20:01 CHOICE PT Extra Support 182cm wire ([id number]) opened to sterile field. 15:20:02 SHEATH 6FR Kirby (FCA502) opened to sterile field. 15:20:02 INFLATOR Merit BasixCompak (AR6578) opened to sterile field. 15:20:08 GUIDE 6FR AR 2.0 catheter ([id number]) opened to sterile field. 15:20:20 Sheath upsized to a 6 Fr Short. 15:20:40 A MULTIPACK 3DRC 5Fr catheter was advanced over the wire and used for Procedure. 15:21:41 Right subclavian angiography performed 15:21:43 Right carotid angiography performed. 15:24:49 Left carotid angiography performed. 15:26:23 Heparin Bolus 4000 units I.V. was administered by Michael Puente RN; for anticoagulation; 15::39 Catheter removed. 15::39 Integrilin (Bolus 2mg/ml) 10.2 ml I.V. was administered by Michael Puente RN; for antiplatelet therapy; 15:26:51 Integrilin (Bolus 2mg/ml) 9.8 ml wasted was administered by Michael Puente RN; to sharp's; 15:26:56 6 Fr AR 2 guide catheter was inserted over the wire 15:27:02 CHOICE PT ES wire advanced. 15:28:26 Wire removed. unable to cross lesion. 15:28:43 WHISPER 190cm wire ([id number]) opened to sterile field. 15:32:36 Wire advanced across lesion. 15:33:58 Place stent Inflation Number: 1 A INTEGRITY RX 2.25 x 12 stent ([id number]) was prepped and advanced across the Aorta Right -> Dist RCA. The stent was deployed at 17 ALISIA for 0:10 (min:sec). 15:34:40 Wire removed. 15:34:40 Stent catheter was removed intact over wire. 15:34:41 Guide catheter removed. 15:34:46 EXOSEAL 6Fr (EX600) opened to sterile field. 15:34:55 Sheath removed intact; hemostasis achieved with Exoseal to the Right Femoral artery. 15:34:57 Procedure ended.(Physican Out) 15:37:33 Fluoroscopy time 10.00 minutes. 15:37:37 Fluoroscopy dose: 2231 mGy 15:37:37 Flurop Dose total: 2231 15:37:53 Contrast amount:Isovue 300 191ml. 15:37:54 Sharps counted by scrub and verified by R.N. 15:37:55 Insertion/operative site no bleeding no hematoma. 15:37:57 Post-op/insertion site Right Femoral artery dressed using a 4 x 4 and Tegaderm. 15:38:00 Post right femoral artery:stable, soft, clean and dry 15:38:01 Post Procedure Pulses reassessed and unchanged 15:38:07 Post-procedure physical assessment completed. ASA score P 3 - A patient with severe systemic disease as per Anand Youngblood MD. 15:38:16 Post procedure rhythm: unchanged. 15:38:19 Estimated blood loss: 10 ml 15:38:28 Patient needs reinforcement of post procedure teaching. 15:38:28 Post procedure instruction explained to patient.Patient verbalizes understanding. 15:38:37 Effient 60 mg P.O. was administered by Michael Puente RN; for antiplatelet therapy; 15:38:55 Procedure type changed to Cath procedure, Diagnostic procedure, LHC, LHC w/Coronaries w/Grafts, Sedation Charges, Moderate Sedation up to 15 minutes, PCI procedure, AMI/SVG/SCIENTIFIC INFORMATICS LEADER PTCA or Stent, SVG-BMS/SHELBI Initial, Peripheral Cath Diagnostic Procedure, Life Sciences Manager Peripheral Procedures, Tsxff-Modgfct-Qek-Off, Four Vessel Arteriogram 15:40:40 Procedure and supply charges have been captured, reviewed, submitted and are correct. 15:40:43 Procedure Complication : No complications 15:40:45 Vital chart was stopped 15:40:46 See physician's report for complete and final results. 15:40:47 Report given to PCU. 15:40:50 Patient transfered to PCU with Stretcher. 15:40:51 Full Disclosure recording stopped 15:40:51 Procedure ended. 15:40:55 End room use (Document Last) 16:40:45 Late entry 11/06/18 @ 1640- upon picking up pt from 2111, noted pt confusion. Pt had been premedicated prior to transport with spouse at bedside. pt continued to be confused after procedure with difficulty having pt take effient. Tablets were crushed and placed in chocolate pudding, pt states he is allergic to chocolate. tablets wasted and will give in applesauce. pt with symmetrical movement to bilat extremities without difficulty with speech. Will have nurse Mirela forrest to monitor. Vika Rodriguez RN Intervention Summary Intervention Notes Time ActionType Lesion and Equipment Action# Pressure Duration Attributes Used 15:33:58 Place stent Aorta Right INTEGRITY RX 1 17 00:10 -> Dist RCA 2.25 x 12 stent ([id number]) Device Usage Item Name Manufacture Quantity Catalog Number Hospital Part Current Mini mal Lot# / Charge Number Stock Stock Serial# Code ACIST Acist 1 22061 625206 484048 066954 20 Syringe Medical (95903) Systems Inc Bag Decanter Microtek 1 2001S 750784 49016 904759 5 (2001S) Medical Inc. Medline Cath Medline 1 [id number] 390204 09369 931925 5 Pack ([id number]) ACIST Hand Acist 1 74342 501108 916020 384347 5 Control Medical (24980) Systems Inc ACIST Acist 1 97014 083391 563570 770463 5 Manifold Medical (30061) Systems Inc Tegaderm 4 x 3M 1 1626W 712486 668888 335603 5 4 (1626W) SHEATH 5FR Terumo 1 AUL305 974797 482275 340582 5 Kirby (ZKH115) DIAGNOSTIC Cardinal 1 GN4212 435080 39654 613515 30 Multipack Health 5Fr catheter set (EL4586) DIAGNOSTIC St Oswaldo 1 362124 736473 174148 768498 30 WIRE .035 260cm J wire (615352) MULTIPACK Cardinal 1 655947 5 Pigtail 5 Fr Health catheter MULTIPACK JL Cardinal 1 531130 5 4.0 5Fr Health catheter MULTIPACK Cardinal 1 352049 5 3DRC 5Fr Health catheter DIAGNOSTIC Cardinal 1 [id number] 083821 654659 845261 20 AR2 MOD 5 Fr Health catheter (812709X) CHOICE PT [place] 1 [id number] 874507 778738 890906 5 Extra Scientific Support 182cm wire ([id number]) INFLATOR Merit 1 KP9539 810239 760359 681151 15 Merit Medical BasixCompak (ML8064) SHEATH 6FR Terumo 1 NVU829 556486 686169 490533 40 Kirby (ZEF847) GUIDE 6FR AR Medtronic 1 [id number] 558020 75038 086176 1 2.0 catheter (LW9AW13) WHISPER Arellano 1 [id number] 578474 415951 143218 5 190cm wire Vascular (2856231ST) INTEGRITY RX Medtronic 1 [id number] 016930 556003 902870 5 [id number] 2.25 x 12 stent ([id number]) EXOSEAL 6Fr Cardinal 1 EX600 658210 103900 120071 10 (EX600) Health IV CATHETER B. Castaneda 1 [id number] 458562 077302 956658 5 22g Signature Audit [place] Stage Time Signature Unsigned Intra-Procedure 11/06/2018 Gurinder Reynolds Counts 3:46:06 PM RT(R) RT(R) 11/06/2018 4:37:31 PM Intra-Procedure 11/06/2018 Gail 4:41:31 PM Counts RT(R) Signatures Monitor : Gurinder Hill RT Signature : Date : Time : Monitor : Gail Signature : Counts RT Date : Time : [facility] [address] [place] [address]
[~2018-11-05 14:14] MED LIST changes: +BENADRYL25 MG PO; +HUMALOG 30100 UNITS/ SC; +HYDROCODON-ACE1 EAC7 PO; +SANTYL30 GM TP; +TUMS X-STR300 MG PO
[2018-11-05 18:31] LABS: BASOPHILS 0.7 % (0-2); EOSINOPHILS 1.9 % (0-7); HEMATOCRIT 35.9 % (42.0-54.0); HEMOGLOBIN 11.1 g/dL (13.5-17.5); IMMATURE GRANULOCYTES 1.2 % (0-5); LYMPHOCYTES 9.1 % (15-50); MCH 28.4 pg (26.0-34.0); MCHC 30.9 g/dL (31.0-37.0); MCV 91.8 fL (80.0-100.0); MEAN PLATELET VOLUME 10.8 fL (7.4-10.4); MONOCYTES 13.4 % (2-11); NEUTROPHILS 73.7 % (40-80); PLATELET COUNT 194 10x3/uL (130-400); RBC 3.91 10x6/uL (4.20-6.10)
[2018-11-05 18:49] LABS: WBC 14.5 10x3/uL (4.8-10.8)
[2018-11-05 19:00] LABS: CALCIUM 8.1 mg/dL (8.5-10.1); CARBON DIOXIDE 25.2 mmol/L (21.0-32.0); CREATININE - SERUM 6.7 mg/dL (0.6-1.3); POTASSIUM - SERUM 3.2 mmol/L (3.5-5.1)
[2018-11-05 20:00] VITALS: BP 142/46
[2018-11-06] VITALS: BP 105/48
[2018-11-06 04:00] VITALS: BP 130/50
[2018-11-06 09:06] VITALS: BP 126/50
[2018-11-06 10:24] VITALS: BP 126/50; BMI 25.1
[2018-11-06 10:48] VITALS: Ht 180.3 cm; Wt 129.4 kg
[2018-11-06 13:06] VITALS: BP 114/45
--- NOTE | 2018-11-06 16:19 | MORECARE ---
CASE MANAGEMENT DISCHARGE SUMMARY PATIENT: KURT BRIGHT GORIN UNIT: [id number] ADM DATE: 11/05/18 AGE: 78 : 40 SEX: M ROOM/BED: D.2112 AUTHOR: ROLO PRESTON PHYSICIAN: REFERRING PHYSICIAN: ROHAN ANDRES MD DATE OF SERVICE: 11/06/18 Discharge Plan Patient Name: KURT BRIGHT [facility] [facility] 1940 Planned Disposition: Anticipated Discharge Date: Discharge Date: Expected LOS: Initial Reviewer: [email or web address] Initial Review Date: 11/06/2018 Generated: 11/06/18 5:19 pm DCPIA - Discharge Planning Initial Assessment Updated by [email or web address]: Federico Herman on 11/06/18 4:16 pm * Is the patient Alert and Oriented? Yes * How many steps to enter\exit or inside your home? 2 W/RAMP * PCP DR. ANDRES * [facility] * Preadmission Environment Acute Inpatient Rehab * Facility Name [facility] * ADLs Total Dependent * Equipment Hospital Bed Oxygen Power Chair or Electric Scooter Walker * Other Equipment HOME OXYGEN PRN * List name and contact numbers for known caregivers / representatives who currently or will assist patient after discharge: CURT BRIGHT, SPOUSE, JAMIE BRIGHT, SON, * Verbal permission to speak to the caregivers and representatives has been obtained from the patient. N/A * Community resources currently utilized Other * Please name any agencies selected above. NOW REQUIRES DIALYSIS - WILL NEED OUTPATIENT DIALYSIS CLINIC ARRANGEMENT IS GOING TO LONG TERM FACILITY * Additional services required to return to the preadmission environment? No * Can the patient safely return to the preadmission environment? Yes * Has this patient been hospitalized within the prior 30 days at any hospital? Yes Patient Name: KURT BRIGHT Page 32245 at 1619 All edits/amendments must be made on the electronic document DICTATION DATE: 11/06/18 1619 RESPIRATORY THERAPY DIRECTOR: NEEL 11/06/18 1619 RPT#: [id number] DC DATE: STATUS: ADM IN [facility] [address] [place] [address] END OF REPORT
--- NOTE | 2018-11-06 16:30 | MORECARE ---
CASE MANAGEMENT DISCHARGE SUMMARY PATIENT: KURT BRIGHT UNIT: [id number] ADM DATE: 11/05/18 AGE: 78 : 40 SEX: M ROOM/BED: D.7532 AUTHOR: KARY,DOC PHYSICIAN: REFERRING PHYSICIAN: ROHAN ANDRES MD DATE OF SERVICE: 11/06/18 Discharge Plan Patient Name: KURT BRIGHT Facility[facility]:[place] : 1940 Planned Disposition: Anticipated Discharge Date: Discharge Date: Expected LOS: Initial Reviewer: [email or web address] Initial Review Date: 11/06/2018 Generated: 11/06/18 5:30 pm Comments DCP- Discharge Planning Updated by [email or web address]: Federico Herman on 11/06/18 3:[address] Patient Name: KURT BRIGHT Admission Status: Urgent Accout number: [id number] Admission Date: 11-05-2018 : 1940 Admission Diagnosis: Attending: ROHAN ANDRES Current LOS: 1 Anticipated DC Date: Planned Disposition: TO BE DETERMINED Primary Insurance: MEDICARE A & B PLANNED EXTERNAL PROVIDER: TO BE DETERMINED Discharge Planning Comments: CM RECEIVED ORDER FOR PLACEMENT. CM ATTEMPTED TO MEET WITH PT AND SPOUSE IN ROOM AT APPROXIMATELY 1510 HOURS; PT OUT OF ROOM, PT'S SPOUSE ASKED CM TO COME BACK WHEN SHE WAS NOT ON THE PHONE. CM RETURNED LATER, PT STILL OUT, PT'S SPOUSE SPOKE TO CM. PT'S SPOUSE REPORTS THAT PT IS NOT READY FOR HOSPICE AND WANTS TO LIVE BUT SEEMS TIRED OF DIALYSIS AND HOW HE FEELS. CM DISCUSSED DISCHARGE PLANNING AND NEEDS. CM DISCUSSED AVAILABILITY OF REHAB SERVICES TO INCLUDE [facility] AND INPATIENT REHAB AT [facility] IF THEY THINK PT IS ABLE TO PARTICIPATE IN THERAPY FULLY; PT'S SPOUSE IS NOT SURE PT IS GOING TO BE ABLE TO PARTICIPATE FULLY IN THREE OR MORE HOURS OF THERAPY. PT'S SPOUSE VERY TEARFUL. SHE WANTS TIME TO THINK ABOUT OPTIONS FOR PT'S CARE AND ASKED CM TO CALL HER SON JAMIE AT [phone] DR. ANDRES HAS DISCUSSED THIS WITH HER SON AND SHE WOULD LIKE CM TO DISCUSS DISCHARGE PLANNING WITH JAMIE AND SEE WHAT HE THINKS PT AND SPOUSE SHOULD DO. CM CALLED AND SPOKE TO [facility] OF INPATIENT REHAB WHO INFORMED CM THAT PT WAS NOT PROGRESSING WELL WITH INPATIENT REHAB WHILE THERE. CM CALLED SON, JAMIE, , LEFT MESSAGE ASKING FOR RETURN CALL AND LEFT CM CONTACT NUMBER. PT'S SPOUSE WANTS CM TO DISCUSS DISCHARGE PLANNING WITH PT'S SON, JAMIE BRIGHT, . CM WAITING RETURN CALL FROM JAMIE TO DISCUSS DISCHARGE PLANNING. Spool Worker: Federico Herman DCPIA - Discharge Planning Initial Assessment Updated by [email or web address]: Federico Herman on 11/06/18 4:16 pm * Is the patient Alert and Oriented? Yes * How many steps to enter\exit or inside your home? 2 W/RAMP * PCP DR. ANDRES * [facility] * Preadmission Environment Acute Inpatient Rehab * Facility Name [facility] IN[facility] * ADLs Total Dependent * Equipment Hospital Bed Oxygen Power Chair or Electric Scooter Walker * Other Equipment HOME OXYGEN PRN * List name and contact numbers for known caregivers / representatives who currently or will assist patient after discharge: CURT BRIGHT, SPOUSE, JAMIE BRIGHT, SON, * Verbal permission to speak to the caregivers and representatives has been obtained from the patient. N/A * Community resources currently utilized Other * Please name any agencies selected above. NOW REQUIRES DIALYSIS - WILL NEED OUTPATIENT DIALYSIS CLINIC ARRANGEMENT IS GOING TO [facility]RECTION FACILITY * Additional services required to return to the preadmission environment? No * Can the patient safely return to the preadmission environment? Yes * Has this patient been hospitalized within the prior 30 days at any hospital? Yes Last DP export: 11/06/18 3:19 p Patient Name: KURT BRIGHT Page 20876 at 1630 All edits/amendments must be made on the electronic document DICTATION DATE: 11/06/181628 SPOT SPRAYER: NEEL 11/06/181628 RPT#: [id number] DC DATE: STATUS: ADM IN [facility] [address] [place] [address] END OF REPORT
[2018-11-06 20:00] VITALS: BP 97/67
[2018-11-07] VITALS: BP 113/44
[2018-11-07 04:00] VITALS: BP 100/41
[2018-11-07 08:41] VITALS: BP 111/40
[2018-11-07 09:00] LABS: BASOPHILS 0.5 % (0-2); EOSINOPHILS 3.9 % (0-7); HEMATOCRIT 36.3 % (42.0-54.0); HEMOGLOBIN 11.4 g/dL (13.5-17.5); IMMATURE GRANULOCYTES 1.1 % (0-5); LYMPHOCYTES 17.5 % (15-50); MCH 29.1 pg (26.0-34.0); MCHC 31.4 g/dL (31.0-37.0); MCV 92.6 fL (80.0-100.0); MEAN PLATELET VOLUME 11.3 fL (7.4-10.4); MONOCYTES 12.2 % (2-11); NEUTROPHILS 64.8 % (40-80); PLATELET COUNT 201 10x3/uL (130-400); RBC 3.92 10x6/uL (4.20-6.10); RDW 19.1 % (11.5-14.5)
[2018-11-07 09:10] LABS: WBC 10.2 10x3/uL (4.8-10.8)
[2018-11-07 09:14] LABS: ALBUMIN 1.8 g/dL (3.4-5.0); ANION GAP 18.7 mmol/L (8-16); BILIRUBIN - TOTAL 1.09 mg/dL (0.2-1.3); CALCIUM 8.2 mg/dL (8.5-10.1); CARBON DIOXIDE 24.9 mmol/L (21.0-32.0); POTASSIUM - SERUM 3.6 mmol/L (3.5-5.1); PROTEIN - SERUM 6.7 g/dL (6.4-8.2)
[2018-11-07 12:04] VITALS: BP 110/44
--- NOTE | 2018-11-07 17:02 | MORECARE ---
CASE MANAGEMENT DISCHARGE SUMMARY PATIENT: KURT BRIGHT UNIT: [id number] ADM DATE: 11/05/18 AGE: 78 : 40 SEX: M ROOM/BED: D.2112 AUTHOR: KARY,DOC PHYSICIAN: REFERRING PHYSICIAN: ROHAN ANDRES MD DATE OF SERVICE: 11/07/18 Discharge Plan Patient Name: KURT BRIGHT Facility: [facility]:[place] : 1940 Planned Disposition: Anticipated Discharge Date: Discharge Date: Expected LOS: Initial Reviewer: [id number] Initial Review Date: 11/06/2018 Generated: 11/07/18 6:02 pm Comments DCP- Discharge Planning Updated by [id number]: Federico Herman on 11/07/18 3:[address] Patient Name: KURT BRIGHT Encounter No: [id number] : 1940 Primary Insurance: MEDICARE A & B Anticipated DC Date: Planned Disposition: LONG-TERM FACLITY External Planned Provider: TO BE DETERMINED DCP follow-up note: CM RECEIVED CALL FROM RAE BRIGHT, , SPOUSE OF JAMIE BRIGHT (PT'S SON). INFORMED CM THAT JAMIE IS WORKING AND ASKED HER TO CALL CM TO DISCUSS DISCHARGE PLAN. CM CHECKED WITH PT'S SPOUSE WHO INFORMED CM THAT IT IS OK TO DISCUSS DISCHARGE PLANNING AND NEEDS WITH . CM DISCUSSED PHYSICIANS RECOMMENDATION FOR PLACEMENT IN LONG-TERM, INPATIENT REHAB'S ASSESSMENT THAT PT IS NOT PROGRESSING WITH INPATIENT REHAB AND PT'S SPOUSE STATING THAT SHE DOES NOT THINK PT CAN PARTICIPATE IN THREE HOURS OF PROGRESSIVE THERAPY PER DAY. CM DISCUSSED LONG-TERM AGENCY LISTING AND AVALABLE PROVIDERS. THEY ARE THINKING OF [facility]. WILL DISCUSS PLACEMENT WITH JAMIE AND MRS. BRIGHT. JAMIE OR WILL CALL CM BACK WITH DECISION REGARDING PLACEMENT CHOICES. CM WAITING CALL FROM PT'S SON OR DAUGHTER IN LAW REGARDING CHOICES FOR LONG-TERM FACILITY PLACEMENT. Federico Herman, CASE MANAGEMENT DCP- Discharge Planning Updated by [email or web address]: Federico Herman on 11/06/18 3:[address] Patient Name: KURT BRIGHT Admission Status: Urgent Accout number: [id number] Admission Date: 11-05-2018 : 1940 Admission Diagnosis: Attending: ROHAN ANDRES Current LOS: 1 Anticipated DC Date: Planned Disposition: TO BE DETERMINED Primary Insurance: MEDICARE A & B PLANNED EXTERNAL PROVIDER: TO BE DETERMINED Discharge Planning Comments: CM RECEIVED ORDER FOR PLACEMENT. CM ATTEMPTED TO MEET WITH PT AND SPOUSE IN ROOM AT APPROXIMATELY 1510 HOURS; PT OUT OF ROOM, PT'S SPOUSE ASKED CM TO COME BACK WHEN SHE WAS NOT ON THE PHONE. CM RETURNED LATER, PT STILL OUT, PT'S SPOUSE SPOKE TO CM. PT'S SPOUSE REPORTS THAT PT IS NOT READY FOR HOSPICE AND WANTS TO LIVE BUT SEEMS TIRED OF DIALYSIS AND HOW HE FEELS. CM DISCUSSED DISCHARGE PLANNING AND NEEDS. CM DISCUSSED AVAILABILITY OF REHAB SERVICES TO INCLUDE LONG-TERM FACILTY AND INPATIENT REHAB AT [facility] IF THEY THINK PT IS ABLE TO PARTICIPATE IN THERAPY FULLY; PT'S SPOUSE IS NOT SURE PT IS GOING TO BE ABLE TO PARTICIPATE FULLY IN THREE OR MORE HOURS OF THERAPY. PT'S SPOUSE VERY TEARFUL. SHE WANTS TIME TO THINK ABOUT OPTIONS FOR PT'S CARE AND ASKED CM TO CALL HER SON JAMIE AT [phone] DR. ANDRES HAS DISCUSSED THIS WITH HER SON AND SHE WOULD LIKE CM TO DISCUSS DISCHARGE PLANNING WITH JAMIE AND SEE WHAT HE THINKS PT AND SPOUSE SHOULD DO. CM CALLED AND SPOKE TO JUNITO OF INPATIENT REHAB WHO INFORMED CM THAT PT WAS NOT PROGRESSING WELL WITH INPATIENT REHAB WHILE THERE. CM CALLED SON, JAMIE, , LEFT MESSAGE ASKING FOR RETURN CALL AND LEFT CM CONTACT NUMBER. PT'S SPOUSE WANTS CM TO DISCUSS DISCHARGE PLANNING WITH PT'S SON, JAMIE BRIGHT, . CM WAITING RETURN CALL FROM JAMIE TO DISCUSS DISCHARGE PLANNING. Associate Professor Of Pathology: Federico Herman DCPIA - Discharge Planning Initial Assessment Updated by [id number]: Federico Herman on 11/07/18 4:59 pm * Is the patient Alert and Oriented? Yes * How many steps to enter\exit or inside your home? 2 W/RAMP * PCP DR. ANDRES * [facility] * Preadmission Environment Acute Inpatient Rehab * Facility Name [facility] * ADLs Total Dependent * Equipment Hospital Bed Oxygen Power Chair or Electric Scooter Walker * Other Equipment HOME OXYGEN PRN * List name and contact numbers for known caregivers / representatives who currently or will assist patient after discharge: CURT BRIGHT, SPOUSE, JAMIE BRIGHT, SON, Priscilla BRIGHT, DTR IN LAW, * Verbal permission to speak to the caregivers and representatives has been obtained from the patient. N/A * Community resources currently utilized Other * Please name any agencies selected above. NOW REQUIRES DIALYSIS - WILL NEED OUTPATIENT DIALYSIS CLINIC ARRANGEMENT IS GOING TO LONG-TERM FACILITY * Additional services required to return to the preadmission environment? No * Can the patient safely return to the preadmission environment? Yes * Has this patient been hospitalized within the prior 30 days at any hospital? Yes Last DP export: 11/06/18 3:30 p Patient Name: KURT BRIGHT Page 25490 at 1702 All edits/amendments must be made on the electronic document DICTATION DATE: 11/07/181700 STOCK ASSOCIATE: NEEL 11/07/181700 RPT#: [id number] DC DATE: STATUS: ADM IN [facility] [address] [place] [address] END OF REPORT
[2018-11-07 20:00] VITALS: BP 107/67
[2018-11-08] VITALS: BP 90/46
[2018-11-08 04:00] VITALS: BP 98/50
[2018-11-08 06:31] LABS: ALBUMIN 1.7 g/dL (3.4-5.0); ANION GAP 14.7 mmol/L (8-16); BILIRUBIN - TOTAL 0.99 mg/dL (0.2-1.3); CALCIUM 7.9 mg/dL (8.5-10.1); CREATININE - SERUM 7.5 mg/dL (0.6-1.3); POTASSIUM - SERUM 3.7 mmol/L (3.5-5.1); PROTEIN - SERUM 6.7 g/dL (6.4-8.2)
[2018-11-08 07:00] LABS: BASOPHILS 0.4 % (0-2); EOSINOPHILS 3.9 % (0-7); HEMATOCRIT 35.6 % (42.0-54.0); IMMATURE GRANULOCYTES 1.2 % (0-5); LYMPHOCYTES 13.7 % (15-50); MCH 28.4 pg (26.0-34.0); MCHC 30.9 g/dL (31.0-37.0); MCV 91.8 fL (80.0-100.0); MEAN PLATELET VOLUME 11.1 fL (7.4-10.4); MONOCYTES 13.2 % (2-11); NEUTROPHILS 67.6 % (40-80); PLATELET COUNT 185 10x3/uL (130-400); RBC 3.88 10x6/uL (4.20-6.10); RDW 18.5 % (11.5-14.5); WBC 11.1 10x3/uL (4.8-10.8)
[2018-11-08 08:33] VITALS: BP 105/77
[2018-11-08 15:01] VITALS: BP 107/47
--- NOTE | 2018-11-09 09:29 | MORECARE ---
CASE MANAGEMENT DISCHARGE SUMMARY PATIENT: KURT BRIGHT UNIT: [id number] ADM DATE: 11/05/18 AGE: 78 : 40 SEX: M ROOM/BED: D.2112 AUTHOR: KARY,DOC PHYSICIAN: REFERRING PHYSICIAN: ROHAN ANDRES MD DATE OF SERVICE: 11/09/18 Discharge Plan Patient Name: KURT BRIGHT Facility: [facility]:[place] : 1940 Planned Disposition: Hospice Medical Facility Anticipated Discharge Date: 11/08/18 Discharge Date: 11/08/2018 Expected LOS: 3 Initial Reviewer: [id number] Initial Review Date: 11/06/2018 Generated: 11/09/18 10:29 am Comments DCP- Discharge Planning Updated by [id number]: Federico Herman on 11/09/18 8:[address] Patient Name: KURT BRIGHT Encounter No: [id number] : 1940 Primary Insurance: MEDICARE A & B Anticipated DC Date: 11-08-2018 Planned Disposition: Hospice Medical Facility External Planned Provider: [facility] DCP follow-up note: CM REVIEWED CHART, PT DISCHARGED LAST NIGHT TO INPATIENT HOSPICE WITH [facility]. NO FURTHER NEEDS OF CM SERVICES ANTICIPATED. JAROCHO Blackburn DCP- Discharge Planning Updated by [id number]: Federico Herman on 11/07/18 3:[address] Patient Name: KURT BRIGHT Encounter No: [id number] : 1940 Primary Insurance: MEDICARE A & B Anticipated DC Date: Planned Disposition: LONG-TERM FACLITY External Planned Provider: TO BE DETERMINED DCP follow-up note: CM RECEIVED CALL FROM RAE BRIGHT, , SPOUSE OF JAMIE BRIGHT (PT'S SON). INFORMED CM THAT JAMIE IS WORKING AND ASKED HER TO CALL CM TO DISCUSS DISCHARGE PLAN. CM CHECKED WITH PT'S SPOUSE WHO INFORMED CM THAT IT IS OK TO DISCUSS DISCHARGE PLANNING AND NEEDS WITH . CM DISCUSSED PHYSICIANS RECOMMENDATION FOR PLACEMENT IN LONG-TERM, INPATIENT REHAB'S ASSESSMENT THAT PT IS NOT PROGRESSING WITH INPATIENT REHAB AND PT'S SPOUSE STATING THAT SHE DOES NOT THINK PT CAN PARTICIPATE IN THREE HOURS OF PROGRESSIVE THERAPY PER DAY. CM DISCUSSED LONG-TERM AGENCY LISTING AND AVALABLE PROVIDERS. THEY ARE TH[facility]ING [facility]. WILL DISCUSS PLACEMENT WITH JAMIE AND MRS. BRIGHT. JAMIE OR WILL CALL CM BACK WITH DECISION REGARDING PLACEMENT CHOICES. CM WAITING CALL FROM PT'S SON OR DAUGHTER IN LAW REGARDING CHOICES FOR LONG-TERM FACILITY PLACEMENT. Federico Herman, CASE MANAGEMENT DCP- Discharge Planning Updated by [email or web address]: Federico Herman on 11/06/18 3:[address] Patient Name: KURT BRIGHT Admission Status: Urgent Accout number: [id number] Admission Date: 11-05-2018 : 1940 Admission Diagnosis: Attending: ROHAN ANDRES Current LOS: 1 Anticipated DC Date: Planned Disposition: TO BE DETERMINED Primary Insurance: MEDICARE A & B PLANNED EXTERNAL PROVIDER: TO BE DETERMINED Discharge Planning Comments: CM RECEIVED ORDER FOR PLACEMENT. CM ATTEMPTED TO MEET WITH PT AND SPOUSE IN ROOM AT APPROXIMATELY 1510 HOURS; PT OUT OF ROOM, PT'S SPOUSE ASKED CM TO COME BACK WHEN SHE WAS NOT ON THE PHONE. CM RETURNED LATER, PT STILL OUT, PT'S SPOUSE SPOKE TO CM. PT'S SPOUSE REPORTS THAT PT IS NOT READY FOR HOSPICE AND WANTS TO LIVE BUT SEEMS TIRED OF DIALYSIS AND HOW HE FEELS. CM DISCUSSED DISCHARGE PLANNING AND NEEDS. CM DISCUSSED AVAILABILITY OF REHAB SERVICES TO INCLUDE LONG-TERM FACILTY AND INPATIENT REHAB AT [facility] IF THEY THINK PT IS ABLE TO PARTICIPATE IN THERAPY FULLY; PT'S SPOUSE IS NOT SURE PT IS GOING TO BE ABLE TO PARTICIPATE FULLY IN THREE OR MORE HOURS OF THERAPY. PT'S SPOUSE VERY TEARFUL. SHE WANTS TIME TO THINK ABOUT OPTIONS FOR PT'S CARE AND ASKED CM TO CALL HER SON JAMIE AT [phone] DR. ANDRES HAS DISCUSSED THIS WITH HER SON AND SHE WOULD LIKE CM TO DISCUSS DISCHARGE PLANNING WITH JAMIE AND SEE WHAT HE THINKS PT AND SPOUSE SHOULD DO. CM CALLED AND SPOKE TO JUNITO OF INPATIENT REHAB WHO INFORMED CM THAT PT WAS NOT PROGRESSING WELL WITH INPATIENT REHAB WHILE THERE. CM CALLED SONJAMIE, , LEFT MESSAGE ASKING FOR RETURN CALL AND LEFT CM CONTACT NUMBER. PT'S SPOUSE WANTS CM TO DISCUSS DISCHARGE PLANNING WITH PT'S SON, JAMIE BRIGHT, . CM WAITING RETURN CALL FROM JAMIE TO DISCUSS DISCHARGE PLANNING. Paper Bag Maker: Federico Herman DCPIA - Discharge Planning Initial Assessment Updated by [id number]: Federico Herman on 11/07/18 4:59 pm * Is the patient Alert and Oriented? Yes * How many steps to enter\exit or inside your home? 2 W/RAMP * PCP DR. ANDRES * [facility] * Preadmission Environment Acute Inpatient Rehab * Facility Name [facility] * ADLs Total Dependent * Equipment Hospital Bed Oxygen Power Chair or Electric Scooter Walker * Other Equipment HOME OXYGEN PRN * List name and contact numbers for known caregivers / representatives who currently or will assist patient after discharge: CURT BRIGHT, SPOUSE, JAMIE BRIGHT, SON, DEANGELO, DTR IN LAW, * Verbal permission to speak to the caregivers and representatives has been obtained from the patient. N/A * Community resources currently utilized Other * Please name any agencies selected above. NOW REQUIRES DIALYSIS - WILL NEED OUTPATIENT DIALYSIS CLINIC ARRANGEMENT IS GOING TO LONG-TERM FACILITY * Additional services required to return to the preadmission environment? No * Can the patient safely return to the preadmission environment? Yes * Has this patient been hospitalized within the prior 30 days at any hospital? Yes Last DP export: 11/07/18 4:02 p Patient Name: KURT BRIGHT Page [id number] at 0929 All edits/amendments must be made on the electronic document DICTATION DATE: 11/09/18927 INSULATION CUPOLA OPERATOR: NEEL 11/09/18927 RPT#: [id number] DC DATE:11/08/18 STATUS: DIS IN [facility] [address] [place] [address] END OF REPORT
--- NOTE | 2018-11-13 11:18 | OP ---
PATIENT NAME: KURT BRIGHT MEDICAL RECORD: [id number] :40 LOCATION:D.M2 D.2 ADMISSION DATE:11/05/18 SURGEON: OSMIN HANSEN MD DATE OF OPERATION: 11/06/2018 DATE OF SERVICE: 11/06/2018 PROCEDURES: 1. Aortofemoral runoff. 2. Abdominal aortography. 3. Four-vessel carotid and vertebral angiography. INDICATION: Carotid vascular disease, claudication and peripheral vascular disease. PROCEDURE IN DETAIL: After informed consent was obtained and after detailed description of risks, benefits as well as alternative therapies, the patient elected to proceed with angiogram and aortofemoral runoff. The right femoral area had a preexisting sheath. FINDINGS: There was subselection of each subclavian as well as the left carotid. RIGHT SIDE: The common and internal carotid have previously placed stent. This is widely patent with no significant restenosis. No disease elsewise throughout the carotids or their branches. The vertebral artery has no significant angiographic disease. LEFT SYSTEM: Vertebral artery has no significant disease. The carotid has an 85% stenosis at the ostium, then the internal carotid is totally occluded, which is a chronic total occlusion. The external carotid is patent. Abdominal aortography was performed. The catheter was pulled down for aortofemoral runoff. Abdominal aortography reveals no significant abdominal aortic disease, no dissection or annulus formation. RIGHT LEG: A. Iliac: The common internal and external iliacs have heavy calcification, mild plaquing, no flow-limiting stenosis. B. Femoral system: The common and deep femoral are widely patent. Superficial femoral has heavy calcification, moderate to severe diffuse disease, multiple areas of greater than 70-80% stenosis. C. Popliteal and infrapopliteal vessels are severely diffusely diseased. There does appear to be somewhat of 2-vessel runoff through the peroneal and posterior tibial. LEFT LEG: A. Iliac: The common internal and external iliacs have heavy calcification, mild plaquing, no flow-limiting stenosis. B. Femoral system: The common and deep femoral are widely patent. Superficial femoral has heavy calcification, moderate to severe diffuse disease, multiple areas of greater than 70-80% stenosis. C. Popliteal and infrapopliteal vessels are severely diffusely diseased. There OPERATIVE REPORT [id number] KURT BRIGHT does appear to be somewhat of 2-vessel runoff through the peroneal and posterior tibial. 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 Moderately severe diffuse disease of the superficial femoral arteries and infrapopliteal bilaterally, not amenable to surgical transcatheter revascularization. TRANSINT:[id number] Voice Confirmation ID: [id number] DOCUMENT ID: [id number] OSMIN HANSEN MD at 1118 CC: [id number] DICTATION DATE: 11/06/18 1543 TRANSACTION MANAGER: 11/07/18 0031 DIS IN 11/08/18 [facility] [address] [place] [address]
--- NOTE | 2018-11-13 11:18 | OP ---
PATIENT NAME: KUTR BRIGHT MEDICAL RECORD: [id number] :40 LOCATION:D.M2 D.2112 ADMISSION DATE:11/05/18 SURGEON: OSMIN HANSEN MD DATE OF OPERATION: 11/06/2018 PROCEDURES: 1. PTCA stent RCA through patent vein graft. 2. Left heart catheterization. 3. Selective coronary angiography. 4. Vein graft angiography. 5. MENDOZA angiography. 6. Left ventriculogram. INDICATION: Angina and coronary artery disease. PROCEDURE IN DETAIL: After informed consent was obtained and after detailed description of risks, benefits as well as alternative therapies, the patient elected to proceed with angiogram and angioplasty. The right femoral area was prepped and draped in normal sterile fashion. Right femoral artery was cannulated via modified Seldinger technique with placement of 6-Qatari sheath. All catheters exchanged through this sheath. FINDINGS: Left ventriculogram was performed in standard 30-degree MCKEON view, reveals global hypokinesis throughout all segments. Overall ejection fraction estimated at 35%. SELECTIVE CORONARY ANGIOGRAPHY: 1. Left main is with no significant angiographic disease. 2. Left anterior descending is totally occluded. 3. Left circumflex is totally occluded. 4. Right coronary is totally occluded. 5. MENDOZA to the LAD is patent. Distal LAD is diffusely diseased, but patent. 6. Vein graft to the circumflex is widely patent. Distal circumflex is widely patent. 7. Vein graft to the RCA is patent. Distal RCA has 90% stenosis in the mid vessel. PTCA STENT OF THE DISTAL RCA: The stent used is a 2.25 x 12-mm Integrity taken to 17 atmospheres. Result was 0% residual stenosis. OVERALL IMPRESSION: Successful percutaneous transluminal coronary angioplasty stent of the right coronary artery through the patent vein graft going from 90% initial stenosis to 0% residual stenosis. TRANSINT:[id number] Voice Confirmation ID: [id number] DOCUMENT ID: [id number] OSMIN HANSEN MD at 1118 CC: [id number] DICTATION DATE: 11/06/18 1543 MILLING MACHINE SET UP OPERATOR: 11/07/18 0029 DIS IN 11/08/18 [place] [id number]
== END 2018-11-08 20:08 | disposition hospice, inpatient (51) | DRG 248 ==
LOC: D.M2 14:14
PROVIDERS: Internal Medicine Interventional Cardiology; ADMIT Family Medicine
PROC: 02703DZ Dilation of Coronary Artery, One Artery with Intraluminal Device, Percutaneous Approach (ICD-10-PCS; principal; 2018-11-06)
PROC: 4A023N7 Measurement of Cardiac Sampling and Pressure, Left Heart, Percutaneous Approach (ICD-10-PCS; 2018-11-06)
PROC: B2121ZZ Fluoroscopy of Single Coronary Artery Bypass Graft using Low Osmolar Contrast (ICD-10-PCS; 2018-11-06)
PROC: B2111ZZ Fluoroscopy of Multiple Coronary Arteries using Low Osmolar Contrast (ICD-10-PCS; 2018-11-06)
PROC: B2151ZZ Fluoroscopy of Left Heart using Low Osmolar Contrast (ICD-10-PCS; 2018-11-06)
PROC: B2181ZZ Fluoroscopy of Left Internal Mammary Bypass Graft using Low Osmolar Contrast (ICD-10-PCS; 2018-11-06)
PROC: B3111ZZ Fluoroscopy of Right Brachiocephalic-Subclavian Artery using Low Osmolar Contrast (ICD-10-PCS; 2018-11-06)
PROC: B31G1ZZ Fluoroscopy of Bilateral Vertebral Arteries using Low Osmolar Contrast (ICD-10-PCS; 2018-11-06)
PROC: B3121ZZ Fluoroscopy of Left Subclavian Artery using Low Osmolar Contrast (ICD-10-PCS; 2018-11-06)
PROC: B3151ZZ Fluoroscopy of Bilateral Common Carotid Arteries using Low Osmolar Contrast (ICD-10-PCS; 2018-11-06)
DX: I25.119 Atherosclerotic heart disease of native coronary artery with unspecified angina pectoris (principal); N18.6 End stage renal disease; N17.9 Acute kidney failure, unspecified; I12.0 Hypertensive chronic kidney disease with stage 5 chronic kidney disease or end stage renal disease; E11.52 Type 2 diabetes mellitus with diabetic peripheral angiopathy with gangrene; I96 Gangrene, not elsewhere classified; E11.22 Type 2 diabetes mellitus with diabetic chronic kidney disease; F03.90 Unspecified dementia, unspecified severity, without behavioral disturbance, psychotic disturbance, mood disturbance, and anxiety; D63.1 Anemia in chronic kidney disease; R41.0 Disorientation, unspecified

== ENCOUNTER 2018-11-08 20:30 | Inpatient (IN) | payer OTHER ==
--- NOTE | 2018-11-07 19:45 | NUR ---
RESUMING CARE . PT LAYING IN BED EYES CLOSED, BLEACH RANGE OPERATOR 0.2 CONT, COMFORT CARE IN PLACE O2 ON AT 2L , PALACIOS IN PLACE NO SIGN OF DISTRESS @ BEDSIDE WILL CONT TO MONITOR CL IN REACH
[~2018-11-08] VITALS: Ht 180.3 cm; Wt 129.3 kg
--- NOTE | 2018-11-08 23:03 | NUR ---
STARTED SCHOOL RESOURCE OFFICER PUMP PER ORDERS 0.2MG CONTINUOUS TO RIGHT HEMASPLIT. SPOUSE AT BEDSIDE.
--- NOTE | 2018-11-09 01:30 | NUR ---
PATIENT RESTING QUIETLY WITH EYES CLOSED, AT BEDSIDE. RESP SHALLOW AND UNLABORED, CIRCLE SAW OPERATOR CONTINOUS AT 0.2MG. NO NEEDS AT THIS TIME.
[2018-11-09 02:43] VITALS: BP 123/45; BMI 39.8
--- NOTE | 2018-11-09 03:40 | NUR ---
PATIENT RESTING WITH EYES CLOSED, AT BEDSIDE. RESP SHALLOW AND UNLABORED, NO S/SX OF PAIN AT THIS TIME. BED IN LOWEST POSITION, PATIENT STILL ON LEFT SIDE. CALL LIGHT IN REACH.
--- NOTE | 2018-11-09 05:07 | NUR ---
NO CHANGES IN CONDITION, RESP SHALLOW AND LABORED. AT BEDSIDE. NO GRIMACES OR S/SX OF PAIN OR DISCOMFORT. BED IN LOWEST POSITION, CALL LIGHT IN REACH.
--- NOTE | 2018-11-09 09:30 | MORECARE ---
CASE MANAGEMENT DISCHARGE SUMMARY PATIENT: KURT BRIGHT UNIT: [id number] ADM DATE: 11/08/18 AGE: 78 : 40 SEX: M ROOM/BED: D.2112 AUTHOR: ROLO PRESTON PHYSICIAN: REFERRING PHYSICIAN: GRETA SRINIVASAN MD DATE OF SERVICE: 11/09/18 Discharge Plan Patient Name: KURT BRIGHT Facility: [facility]:[place] : 1940 Planned Disposition: Anticipated Discharge Date: Discharge Date: Expected LOS: Initial Reviewer: [email or web address] Initial Review Date: 11/09/2018 Generated: 11/09/18 10:29 am Patient Name: KURT BRIGHT Page 48401 at 0930 All edits/amendments must be made on the electronic document DICTATION DATE: 11/09/18928 SITE INTERPRETER: NEEL 11/09/18928 RPT#: [id number] DC DATE: STATUS: ADM IN [facility] [address] [place] [address] END OF REPORT
--- NOTE | 2018-11-09 09:37 | MORECARE ---
CASE MANAGEMENT DISCHARGE SUMMARY PATIENT: KURT BRIGHT UNIT: [id number] ADM DATE: 11/08/18 AGE: 78 : 40 SEX: M ROOM/BED: D.211 AUTHOR: ROLO PRESTON PHYSICIAN: REFERRING PHYSICIAN: GRETA SRINIVASAN MD DATE OF SERVICE: 11/09/18 Discharge Plan Patient Name: KURT BRIGHT Facility: [facility]:[place] : 1940 Planned Disposition: Anticipated Discharge Date: Discharge Date: Expected LOS: Initial Reviewer: [email or web address] Initial Review Date: 11/09/2018 Generated: 11/09/18 10:37 am Comments DCP- Discharge Planning Updated by [email or web address]: Federico Herman on 11/09/18 8:[address] Patient Name: KURT BRIGHT Admission Status: Elective Accout number: [id number] Admission Date: 11-08-2018 : 1940 Admission Diagnosis: Attending: GRETA SRINIVASAN Current LOS: 1 Anticipated DC Date: Planned Disposition: Primary Insurance: [facility] PLANNED EXTERNAL PROVIDER: [facility] Discharge Planning Comments: CM REVIEWED CHART, PT ADMITTED TO INPATIENT HOSPICE LAST NIGHT. ALL CASE MANAGEMENT SERVICES PROVIDED BY [facility]. Tinning Machine Set Up Operator: Federico Herman Last DP export: 11/09/18 8:29 a Patient Name: KURT BRIGHT Page [phone] at 0937 All edits/amendments must be made on the electronic document DICTATION DATE: 11/09/18936 OPERATING ROOM NURSE: NEEL 11/09/1837 RPT#: [id number] DC DATE: STATUS: ADM IN [facility] [address] [place] [address] END OF REPORT
--- NOTE | 2018-11-09 11:30 | NUR ---
RESTS IN BED WITH EYES CLOSED. ON FLOW. IV PATENT. CALL LIGHT IN REACH.
[2018-11-09 12:17] VITALS: Ht 180.3 cm; Wt 129.3 kg
[2018-11-09 19:50] VITALS: BP 80/25
--- NOTE | 2018-11-10 01:25 | NUR ---
PT RESTING WITH EYES CLOSED. RESP EVEN AND REGULAR. FAMILY AT BEDSIDE. BP LOW 80/25. PT IS ON HOSPICE.
--- NOTE | 2018-11-10 07:00 | NUR ---
RECEIVED BEDSIDE SHIFT REPORT. ASSUMED CARE OF PATIENT. PATIENT WITH EYES CLOSED. RESP EVEN AND UNLABORED. PATIENTS AT BEDSIDE. PATIENT ON HOSPICE, COMFORT CARE PROVIDED. CONTINUES ON DILAUDID ADULT LITERACY TEACHER PUMP. NO AGGITATION. CALL LIGHT WITHIN REACH. ENCOURAGED FAMILY TO LET THIS FOOD MIXER REPAIRER KNOW IF I CAN DO ANYTHING FOR HER.
[2018-11-10 09:17] VITALS: BP 85/29
--- NOTE | 2018-11-10 09:49 | NUR ---
PATIENTS AT BEDSIDE REFUSED FOR PATIENT TO BE TURNED.
--- NOTE | 2018-11-10 12:00 | NUR ---
PATIENT REMAINS SEDATED AND APPEARS COMFORTABLE. RESP EVEN AND UNLABORED. PATIENT REMAINS AT BEDSIDE. REPOSITION PATIENT LEGS AND ARMS AT THIS TIME. NO DISTRESS.
--- NOTE | 2018-11-10 16:45 | NUR ---
WOUND CARE COMPLETED TO SACRUM AND COCCYX. PATIENT TURNED AND REPOSITIONED. TYLENOL SUPP ADMINISTERED FOR ELEVATED TEMP. FAMILY REMAINS AT BEDSIDE. PATIENT HAVING PERIODS OF APNEA AT THIS TIME. WILL CONTINUE TO MONITOR.
--- NOTE | 2018-11-10 16:53 | NUR ---
CALL PLACED TO [facility], [phone], TO HAVE ONCALL NURSE RETURN CALL TO GIVE AN UPDATE OF PATIENT STATUS. PATIENT NOW WITH APNEA AND ELEVATED TEMP.
--- NOTE | 2018-11-10 17:04 | NUR ---
RECEIVED CALL BACK FROM HOSPICE TO GIVE THEM AN UPDATE ON PATIENT CONDITION NO HOSPICE NURSE HAS BEEN IN TODAY TO SEE THE PATIENT. HOSPICE THANKED THIS SUPERVISOR PASTE MIXING FOR CALLING TO GIVE AN UPDATE.
--- NOTE | 2018-11-10 17:40 | NUR ---
CALLED TO PATIENT ROOM. @ 2468 PATIENT AUSCULATATED FOR 2 MINUTES AND FOUND WITH NO PULSE OR RESPIRATIONS. FAMILY AT BEDSIDE. [facility] CALLED AND HAD ONCALL NURSE PAGED AND CARD WRITER HAND NURSE WALKED UP TO THE NURSES STATION SOON THIS LINEN SORTER HUNG UP. HOSPICE NURSE HERE NOW.
--- NOTE | 2018-11-10 17:53 | NUR ---
ATTEMPTED TO WASTE DILAUDID BIODIESEL PLANT MANAGER IN PYXIS BUT DUE TO MEDICATION BEING PULLED AT 2300 ON 11/08, MEDICATION HAD FALLEN OFF WASTE LIST FROM THE PYXIS. RETAIL SELLING FLOOR LEADER ON UNIT. 6ML OF DILAUDID LEFT IN SYRINGE. 0.4MG/ML = 2.4MG OF DILAUDID WASTED WITH RETAIL SELLING FLOOR LEADER AND PROPERLY DISPOSED OF IN MEDICATION WASTE RECEPTICLES.
--- NOTE | 2018-11-10 18:07 | NUR ---
SPOKE WITH [facility] AT [facility], REFERENCE NUMBER [id number] GIVEN. PATIENT IS NOT A CANDIDATE FOR ORGAN DONATION DUE TO PATIENT HAS A HX OF COLON CANCER AND THERE IS NO DOCUMENTATION IF THERE WERE METASTASIS TO ANY OTHER PARTS OF THE BODY.
--- NOTE | 2018-11-10 20:15 | NUR ---
[facility] HERE TO GET , NO FAMILY HERE
--- NOTE | 2018-11-14 09:03 | MORECARE ---
CASE MANAGEMENT DISCHARGE SUMMARY PATIENT: KURT BRIGHT UNIT: [id number] ADM DATE: 11/08/18 AGE: 78 : 40 SEX: M ROOM/BED: D.2112 AUTHOR: ROLO PRESTON PHYSICIAN: REFERRING PHYSICIAN: GRETA SRINIVASAN MD DATE OF SERVICE: 11/14/18 Discharge Plan Patient Name: KURT BRIGHT Facility: [facility]:[place] : 1940 Planned Disposition: Anticipated Discharge Date: 11/10/18 Discharge Date: 11/10/2018 Expected LOS: 2 Initial Reviewer: [email or web address] Initial Review Date: 11/09/2018 Generated: 11/14/18 10:03 am Comments DCP- Discharge Planning Updated by [email or web address]: Federico Herman on 11/09/18 8:[address] Patient Name: KURT BRIGHT Admission Status: Elective Accout number: [id number] Admission Date: 11-08-2018 : 1940 Admission Diagnosis: Attending: GRETA SRINIVASAN Current LOS: 1 Anticipated DC Date: Planned Disposition: Primary Insurance: [facility] PLANNED EXTERNAL PROVIDER: [facility] Discharge Planning Comments: CM REVIEWED CHART, PT ADMITTED TO INPATIENT HOSPICE LAST NIGHT. ALL CASE MANAGEMENT SERVICES PROVIDED BY [facility]. Guard Driver: Federico Herman Last DP export: 11/09/18 8:37 a Patient Name: KURT BRIGHT Page [id number] at 0903 All edits/amendments must be made on the electronic document DICTATION DATE: 11/14/18902 SENIOR APPLICATIONS DEVELOPER: DM 11/14/18 09 RPT#: [id number] DC DATE:11/10/18 STATUS: DIS IN [facility] [address] [place] [address] END OF REPORT
== END 2018-11-10 20:16 | DRG 951 ==
LOC: D.M2 20:30
PROVIDERS: ADMIT Legal Medicine
DX: Z51.5 Encounter for palliative care (principal)